=== PATIENT | female | born 2005 | race Caucasian/White ===

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

== ENCOUNTER 2025-05-01 01:03 | Emergency (ER) | payer OTHER, SELFPAY ==
[2025-05-01 01:12] VITALS: BP 132/84; PULSE 120; RESP 18; TEMP 36.8; O2SAT 98; BMI 34.0
[2025-05-01 01:17] VITALS: BP 132/84; PULSE 124; RESP 18; O2SAT 98
--- OUTSIDE RECORDS SUMMARY | 2025-05-01 01:21 | XMS_ITS | Continuity of Care Document ---
Author Organization [facility]URIC[facility] Luis F Perez ASIAN [employer]UD[employer] PROFESSOR Address [address] [place] [address] [place] [address] Assessment No assessment recorded. Plan of Treatment Reminders Order Date Submit Date Provider Last Modified By Organization Details Last Modified Time Details Appointments OB 1hr Glucose 2025 08:40A M Mildred Mota rtiz, DO Not available Not available Not available Lab urinalysi s, dipstick 2024 025 [email or web address] [place] [facility], [address] [place] [address] , [place], [address], 01/31/2025 14:20:35 aneuploid y risk and X & Y analysis, chromosom e specific circulati ng cell free (CCF) DNA, maternal serum 2024 025 AMARI [facility], [address], [facility], [place], [address], 02/06/2025 03:08:41 Referral None recorded. Procedures None recorded. Surgeries None recorded. Imaging US, obstetric , 1st trimester 2024 025 [email or web address] [place] [facility], [address] [place] [address] , [place], [address], 02/02/2025 07:34:52 Medication Orders None recorded. Patient TargetsNo targets recorded. Patient Instructions Encounter Date Encounter Id Patient Instructions Last Modified By Organization Details Last Modified Time 01/31/2025 [id number] body mass index: care instructions rhogge Not available 01/31/2025 14:20:35 learning about healthy weight rhogge Not available 01/31/2025 14:20:35 nausea and vomiting: care instructions rhogge Not available 01/31/2025 14:20:35 high-risk : care instructions rhogge Not available 01/31/2025 14:20:35 Reason for Referral None Reported. Results Created Date Observation Date Name Description Value Unit Range Abnormal Flag Note LastModifiedBy Organization Detail LastModifiedTime 01/22/2001/22/2025 PREGN TONY, INITI AL SCREE N HBsAg screen Negati ve negati ve Not Available [facility] ([facility]) [address] [facility], [place], [address], 01/23/2025 14:12:25 01/22/20 25 01/22/2025 PREGN TONY, INITI AL SCREE N HCV Ab Non Reacti ve non reacti ve Not Available [facility] ([facility]) [address] [facility], [place], [address], 01/23/2025 14:12:25 01/22/2001/22/2025 PREGN TONY, INITI AL SCREE N interpretati on: Commen t Not infec phill with HCV unles s early or acute infec tion is suspe cted (whic h may be delay ed in an immun ocomp romis ed indiv idual ), or other evide nce exist s to indic ate HCV infec tion. Not Available [facility] ([facility]) [address] [facility], [place], [address], 01/23/2025 14:12:25 01/22/2001/22/2025 PREGN TONY, INITI AL SCREE N RPR Non Reacti ve non reacti ve Not Available [facility] ([facility]) [address] [facility], [place], [address], 01/23/2025 14:12:25 01/22/20 25 01/22/2025 PREGN TONY, INITI AL SCREE N rubella antibodies, IgG 1.09 index immune >0.99 Non-i mmune <0.90 Equiv ocal 0.90 - 0.99 Immun e >0.99 Not Available [facility] ([facility]) [address] [place], [address], 01/23/2025 14:12:25 01/22/20 25 01/22/2025 PREGN TONY, INITI AL SCREE N ABO grouping O Not Available [facility] ([facility]) [address] [facility], [place], [address], 01/23/2025 14:12:25 01/22/20 25 01/22/2025 PREGN TONY, INITI AL SCREE N Rh factor Negati ve Pleas e note: Prior recor ds for this patie nt's ABO / Rh type are not avail able for addit ional verif icati on. Not Available [facility] ([facility]) [address] [facility], [place], [address], 01/23/2025 14:12:25 01/22/2001/22/2025 PREGN TONY, INITI AL SCREE N antibody screen Negati ve negati ve Not Available [facility] ([facility]) [address] [place], [address], 01/23/2025 14:12:25 01/22/20 25 01/22/2025 PREGN TONY, INITI AL SCREE N HIV Ab/P24 Ag screen Non Reacti ve non reacti ve HIV-1 /HIV- 2 antib odies and HIV-1 p24 antig en were NOT detec phill. There is no labor atory evide nce of HIV infec tion. HIV Negat tate Not Available [facility] ([facility]) [address] [place], [address], 01/23/2025 14:12:25 01/22/20 25 01/22/2025 PREGN TONY, INITI AL SCREE N WBC 8.6 x10e3 /uL 3.4-10 .8 normal Not Available [facility] ([facility]) [address] [place], [address], 01/23/2025 14:12:25 01/22/2001/22/2025 PREGN TONY, INITI AL SCREE N RBC 4.55 x10e6 /uL 3.77-5 .28 normal Not Available [facility] ([facility]) [address] [facility], [place], [address], 01/23/2025 14:12:25 01/22/2001/22/2025 PREGN TONY, INITI AL SCREE N hemoglobin 13.4 g/dL 11.1-1 5.9 normal Not Available [facility] ([facility]) [address] [facility], [place], [address], 01/23/2025 14:12:25 01/22/2001/22/2025 PREGN TONY, INITI AL SCREE N hematocrit 40.5 % 34.0-4 6.6 normal Not Available [facility] ([facility]) [address] [facility], [place], [address], 01/23/2025 14:12:25 01/22/2001/22/2025 PREGN TONY, INITI AL SCREE N MCV 89 fL 79-97 normal Not Available [facility] ([facility]) [address] [place], [address], 01/23/2025 14:12:25 01/22/2001/22/2025 PREGN TONY, INITI AL SCREE N MCH 29.5 pg 26.6-3 3.0 normal Not Available [facility] ([facility]) [address] [place], [address], 01/23/2025 14:12:25 01/22/2001/22/2025 PREGN TONY, INITI AL SCREE N MCHC 33.1 g/dL 31.5-3 5.7 normal Not Available [facility] ([facility]) [address] [place], [address], 01/23/2025 14:12:25 01/22/20 25 01/22/2025 PREGN TONY, INITI AL SCREE N RDW 12.1 % 11.7-1 5.4 Not Available [facility] ([facility]) [address] [facility], [place], [address], 01/23/2025 14:12:25 01/22/20 25 01/22/2025 PREGN TONY, INITI AL SCREE N platelets 273 x10e3 /uL 150-45 0 normal Not Available [facility] ([facility]) [address] [facility], [place], [address], 01/23/2025 14:12:25 01/22/20 25 01/22/2025 PREGN TONY, INITI AL SCREE N neutrophils 76 % not estab. normal Not Available [facility] ([facility]) [address] [facility], [place], [address], 01/23/2025 14:12:25 01/22/20 25 01/22/2025 PREGN TONY, INITI AL SCREE N lymphs 16 % not estab. normal Not Available [facility] ([facility]) [address] [facility], [place], [address], 01/23/2025 14:12:25 01/22/20 25 01/22/2025 PREGN TONY, INITI AL SCREE N monocytes 7 % not estab. normal Not Available [facility] ([facility]) [address] [facility], [place], [address], 01/23/2025 14:12:25 01/22/20 25 01/22/2025 PREGN TONY, INITI AL SCREE N eos 0 % not estab. normal Not Available [facility] ([facility]) [address] [facility], [place], [address], 01/23/2025 14:12:25 01/22/20 25 01/22/2025 PREGN TONY, INITI AL SCREE N basos 1 % not estab. 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 0 normal Not Available [facility] ([facility]) [address] [facility], [place], [address], 01/23/2025 14:12:25 01/22/20 25 01/22/2025 PREGN TONY, INITI AL SCREE N lymphs (absolute) 1.3 x10e3 /uL 0.7-3. 1 normal Not Available [facility] ([facility]) [address] [place], [address], 01/23/2025 14:12:25 01/22/20 25 01/22/2025 PREGN TONY, INITI AL SCREE N monocytes(ab solute) 0.6 x10e3 /uL 0.1-0. 9 normal Not Available [facility] ([facility]) [address] [place], [address], 01/23/2025 14:12:25 01/22/20 25 01/22/2025 PREGN TONY, INITI AL SCREE N eos (absolute) 0.0 x10e3 /uL 0.0-0. 4 normal Not Available [facility] ([facility]) [address] [place], [address], 01/23/2025 14:12:25 01/22/20 25 01/22/2025 PREGN TONY, INITI AL SCREE N baso (absolute) 0.1 x10e3 /uL 0.0-0. 2 normal Not Available [facility] ([facility]) [address] [facility], [place], [address], 01/23/2025 14:12:25 01/22/20 25 01/22/2025 PREGN TONY, INITI AL SCREE N immature granulocytes 0 % not estab. Not Available [facility] ([facility]) [address] [facility], [place], [address], 01/23/2025 14:12:25 01/22/2001/22/2025 PREGN TONY, INITI AL SCREE N immature grans (abs) 0.0 x10e3 /uL 0.0-0. 1 Not Available [facility] ([facility]) [address] [facility], [place], [address], 01/23/2025 14:12:25 01/22/2001/22/2025 PREGN TONY, INITI AL SCREE N NRBC WOOD GRINDER Not Available [facility] ([facility]) [address] [facility], [place], [address], 01/23/2025 14:12:25 01/22/2001/22/2025 PREGN TONY, INITI AL SCREE N hematology comments: WOOD GRINDER Not Available [facility] ([facility]) [address] [facility], [place], [address], 01/23/2025 14:12:25 01/22/2001/22/2025 PREGN TONY, INITI AL SCREE N specific gravity 1.023 1.005- 1.030 normal Not Available [facility] ([facility]) [address] [facility], [place], [address], 01/23/2025 14:12:25 01/22/2001/22/2025 PREGN TONY, INITI AL SCREE N pH 6.0 5.0-7. 5 normal Not Available [facility] ([facility]) [address] [facility], [place], [address], 01/23/2025 14:12:25 01/22/20 25 01/22/2025 PREGN TONY, INITI AL SCREE N urine-color Yellow yellow Not Available [facility] ([facility]) [address] [place], [address], 01/23/2025 14:12:25 01/22/20 25 01/22/2025 PREGN TONY, INITI AL SCREE N appearance Cloudy clear abnormal Not Available [facility] ([facility]) [address] [place], [address], 01/23/2025 14:12:25 01/22/20 25 01/22/2025 PREGN TONY, INITI AL SCREE N WBC esterase Negati ve negati ve Not Available [facility] ([facility]) [address] [place], [address], 01/23/2025 14:12:25 01/22/20 25 01/22/2025 PREGN TONY, INITI AL SCREE N protein Negati ve negati ve/tra ce Not Available [facility] ([facility]) [address] [place], [address], 01/23/2025 14:12:25 01/22/20 25 01/22/2025 PREGN TONY, INITI AL SCREE N glucose Negati ve negati ve Not Available [facility] ([facility]) [address] [place], [address], 01/23/2025 14:12:25 01/22/20 25 01/22/2025 PREGN TONY, INITI AL SCREE N ketones Negati ve negati ve Not Available [facility] ([facility]) [address] [place], [address], 01/23/2025 14:12:25 01/22/20 25 01/22/2025 PREGN TONY, INITI AL SCREE N occult blood Negati ve negati ve Not Available [facility] ([facility]) [address] [facility], [place], [address], 01/23/2025 14:12:25 01/22/20 25 01/22/2025 PREGN TONY, INITI AL SCREE N bilirubin Negati ve negati ve Not Available [facility] ([facility]) [address] [facility], [place], [address], 01/23/2025 14:12:25 01/22/20 25 01/22/2025 PREGN TONY, INITI AL SCREE N urobilinogen ,semi-qn 0.2 mg/dL 0.2-1. 0 normal Not Available [facility] ([facility]) [address] [facility], [place], [address], 01/23/2025 14:12:25 01/22/20 25 01/22/2025 PREGN TONY, INITI AL SCREE N nitrite, urine Negati ve negati ve Not Available [facility] ([facility]) [address] [facility], [place], [address], 01/23/2025 14:12:25 01/22/20 25 01/22/2025 PREGN TONY, INITI AL SCREE N microscopic examination Commen t Micro scopi c follo ws if indic ated. Not Available [facility] ([facility]) [address] [facility], [place], [address], 01/23/2025 14:12:25 01/22/20 25 01/22/2025 PREGN TONY, INITI AL SCREE N microscopic examination See below: Micro scopi c was indic ated and was perfo rmed. Not Available [facility] ([facility]) [address] [place], [address], 01/23/2025 14:12:25 01/22/20 25 01/22/2025 PREGN TONY, INITI AL SCREE N WBC 0-5 /hpf 0 - 5 Not Available [facility] ([facility]) [address] [place], [address], 01/23/2025 14:12:25 01/22/20 25 01/22/2025 PREGN TONY, INITI AL SCREE N RBC 0-2 /hpf 0 - 2 Not Available [facility] ([facility]) [address] [facility], [place], [address], 01/23/2025 14:12:25 01/22/20 25 01/22/2025 PREGN TONY, INITI AL SCREE N epithelial cells (non renal) >10 /hpf 0 - 10 abnormal Not Available [facility] ([facility]) [address] [facility], [place], [address], 01/23/2025 14:12:25 01/22/20 25 01/22/2025 PREGN TONY, INITI AL SCREE N epithelial cells (renal) WOOD GRINDER Not Available [facility] ([facility]) [address] [facility], [place], [address], 01/23/2025 14:12:25 01/22/20 25 01/22/2025 PREGN TONY, INITI AL SCREE N casts None seen /lpf none seen Not Available [facility] ([facility]) [address] [facility], [place], [address], 01/23/2025 14:12:25 01/22/20 25 01/22/2025 PREGN TONY, INITI AL SCREE N cast type WOOD GRINDER Not Available [facility] ([facility]) [address] [facility], [place], [address], 01/23/2025 14:12:25 01/22/20 25 01/22/2025 PREGN TONY, INITI AL SCREE N crystals WOOD GRINDER Not Available [facility] ([facility]) [address] [facility], [place], [address], 01/23/2025 14:12:25 01/22/20 25 01/22/2025 PREGN TONY, INITI AL SCREE N crystal type WOOD GRINDER Not Available [facility] ([facility]) [address] [facility], [place], [address], 01/23/2025 14:12:25 01/22/20 25 01/22/2025 PREGN TONY, INITI AL SCREE N mucus threads WOOD GRINDER Not Available [facility] ([facility]) [address] [facility], [place], [address], 01/23/2025 14:12:25 01/22/20 25 01/22/2025 PREGN TONY, INITI AL SCREE N bacteria Few none seen/f ew Not Available [facility] ([facility]) [address] [facility], [place], [address], 01/23/2025 14:12:25 01/22/20 25 01/22/2025 PREGN TONY, INITI AL SCREE N yeast WOOD GRINDER Not Available [facility] ([facility]) [address] [facility], [place], [address], 01/23/2025 14:12:25 01/22/20 25 01/22/2025 PREGN TONY, INITI AL SCREE N trichomonas WOOD GRINDER Not Available [facility] ([facility]) [address] [facility], [place], [address], 01/23/2025 14:12:25 01/22/20 25 01/22/2025 PREGN TONY, INITI AL SCREE N comment WOOD GRINDER Not Available [facility] ([facility]) [address] [place], [address], 01/23/2025 14:12:25 01/22/20 25 01/23/2025 PREGN TONY, INITI AL SCREE N chlamydia trachomatis, PEPE Negati ve negati ve Not Available [facility] ([facility]) [address] [place], [address], 01/23/2025 14:12:25 01/22/20 25 01/23/2025 PREGN TONY, INITI AL SCREE N neisseria gonorrhoeae, PEPE Negati ve negati ve Not Available [facility] ([facility]) [address] [place], [address], 01/23/2025 14:12:25 01/22/20 25 01/23/2025 PREGN TONY, INITI AL SCREE N urine culture,pren atal, w/gbs Final report Not Available [facility] ([facility]) [address] [facility], [place], [address], 01/23/2025 14:12:25 01/22/20 25 01/23/2025 PREGN TONY, INITI AL SCREE N result 1 No growth Not Available [facility] ([facility]) [address] [facility], [place], [address], 01/23/2025 14:12:25 01/22/2001/22/2025 HEMOG LOBIN A1C hemoglobin A1C 5.1 % 4.8-5. 6 normal Predi abete s: 5.7 - 6.4 Diabe crystal: >6.4 Glyce carola contr ol for adult s with diabe crystal: <7.0 Not Available [facility] ([facility]) [address] [facility], [place], [address], 01/23/2025 14:12:25 01/22/20 25 01/26/2025 COMPL IANCE DRUG RON SIS, UR summary report (summary) FINAL ===== ===== ===== ===== ===== ===== ===== ===== ===== ===== ===== ===== ===== === TOXAS SURE COMP DRUG RON SIS,U R ===== ===== ===== ===== ===== ===== ===== ===== ===== ===== ===== ===== ===== === Test Resul t Flag Units NO DRUGS DETEC PHILL. ===== ===== ===== ===== ===== ===== ===== ===== ===== ===== ===== ===== ===== === Test Resul t Flag Units Ref Range Creat inine 140 mg/dL >=20 ===== ===== ===== ===== ===== ===== ===== ===== ===== ===== ===== ===== ===== === Decla red Medic ation s: Medic ation list was not provi ded. ===== ===== ===== ===== ===== ===== ===== ===== ===== ===== ===== ===== ===== === For clini mao consu ltati on, pleas e call [phone]. ===== ===== ===== ===== ===== ===== ===== ===== ===== ===== ===== ===== ===== === Not Available [facility] ([facility]) [address] [facility], [place], [address], 01/26/2025 10:35:57 01/22/20 25 01/26/2025 COMPL IANCE DRUG RON SIS, UR pdf . Not Available [facility] ([facility]) [address] [facility], [place], [address], 01/26/2025 10:35:57 01/22/20 25 01/21/2025 pregn tony test, urine HCG positi ve Not Available [place] [facility] [address] [facility] , [place], [address], 01/21/2025 08:32:47 02/01/2002/06/2025 MATER NIT21 PLUS CORE gestation Single ton Not Available [facility] ([facility]) [address] [facility], [place], [address], 02/06/2025 03:08:41 02/01/2002/06/2025 MATER NIT21 PLUS CORE fraction 16% Not Available [facility] ([facility]) [address] [facility], [place], [address], 02/06/2025 03:08:41 02/01/2002/06/2025 MATER NIT21 PLUS CORE gestational age > or = 9W: Yes Not Available [facility] ([facility]) [address] [facility], [place], [address], 02/06/2025 03:08:41 02/01/2002/06/2025 MATER NIT21 PLUS CORE test result Negati ve Not Available [facility] ([facility]) [address] [facility], [place], [address], 02/06/2025 03:08:41 02/01/2002/06/2025 MATER NIT21 PLUS CORE laborer comments Sandoval Mcneil speci men showe d an expec phill repre senta tion of chrom osome 21, 18 and 13 mater ial. Clini mao corre latio n is doris patricia. Not Available [facility] ([facility]) [address] [facility], [place], [address], 02/06/2025 03:08:41 02/01/2002/06/2025 MATER NIT21 PLUS CORE approved by Sandoval munson MD, PhD, [facility] tor, [place] Labor atori es Not Available [facility] ([facility]) [address] [facility], [place], [address], 02/06/2025 03:08:41 02/01/20 25 02/06/2025 MATER NIT21 PLUS CORE trisomy 21 (down syndrome) Negati ve Not Available [facility] ([facility]) [address] [facility], [place], [address], 02/06/2025 03:08:41 02/01/20 25 02/06/2025 MATER NIT21 PLUS CORE trisomy 18 (burt syndrome) Negati ve Not Available [facility] ([facility]) [address] [facility], [place], [address], 02/06/2025 03:08:41 02/01/2002/06/2025 MATER NIT21 PLUS CORE trisomy 13 (patau syndrome) Negati ve Not Available [facility] ([facility]) [address] [facility], [place], [address], 02/06/2025 03:08:41 02/01/2002/06/2025 MATER NIT21 PLUS CORE sex Commen t Consi stent with Femal e Not Available [facility] ([facility]) [address] [facility], [place], [address], 02/06/2025 03:08:41 02/01/2002/06/2025 MATER NIT21 PLUS CORE negative predictive value Note The Negat tate Predi ctive Value (NPV) for triso my 21, 18, and 13 is great er than 99%. The NPV for SCA and ESS canno t be calcu lated as SCA and ESS are only repor phill when an abnor malit y is detec phill. Not Available [facility] ([facility]) [address] [facility], [place], [address], 02/06/2025 03:08:41 02/01/2002/06/2025 MATER NIT21 PLUS CORE positive predictive value N/A Not Available [facility] ([facility]) [address] [facility], [place], [address], 02/06/2025 03:08:41 02/01/2002/06/2025 MATER NIT21 PLUS CORE about the test Commen t The Mater niT(R ) 21 PLUS labor atory -deve loped test (LDT) ron zes circu latin g cell- free DNA from a mater nal blood sampl e. This test is used for scree gustavo purpo ses and not diagn ostic . Clini mao corre latio n is recom saul d. Valid ation data on twin pregn ancie s is limit ed and the abili ty of this test to detec t aneup loidy in highe r multi ple gesta tions has not yet been valid ated. Not Available [facility] ([facility]) [address] [facility], [place], [address], 02/06/2025 03:08:41 02/01/2002/06/2025 MATER NIT21 PLUS CORE test method Commen t Circu latin g cell- free DNA was purif ied from the plasm a compo nent of mater nal blood . The extra cted DNA was then conve rted into a Brandizi DNA valentín ry for aneup loidy ron sis of chrom osome s 21, 18, and 13 via next gener ation seque ncing .[1] Optio nal findi ngs based on the test order inclu de sex chrom osome aneup loidy (SCA) [2], and enhan reina seque ncing serie s (ESS) [3], which will only be repor phill on as an addit ional findi ng when an abnor malit y is detec phill. SCA testi ng inclu cuong infor matio n on X and Y repre senta tion, while ESS testi ng inclu cuong delet ions in selec phill regio ns (22q, 15q, 11q, 8q, 5p, 4p, 1p) and triso my of chrom osome s 16 and 22. Not Available [facility] ([facility]) [address] [facility], [place], [address], 02/06/2025 03:08:41 02/01/2002/06/2025 MATER NIT21 PLUS CORE performance Commen t The perfo rmanc e etelvina cteri stics of the Mater niT(R ) 21 PLUS labor atory -deve loped test (LDT) have been deter mined in a clini mao valid ation study with pregn ant women at incre ased risk for chrom osoma l aneup loidy .[1-4 ] Not Available [facility] ([facility]) [address] [facility], [place], [address], 02/06/2025 03:08:41 02/01/20 25 02/06/2025 MATER NIT21 PLUS CORE performance characterist ics Note ----- ----- ----- ----- ----- ----- ----- ----- ----- ----- ----- ---- ! Sex ! Accur acy: 99.4% ! !---- ----- ----- ----- ----- ----- ----- ----- ----- ----- ----- ---! ! Andresio n (savanna gomez syndr ome) ! Est. Sens# ! Est. Spec ! !---- ----- ----- ----- ----- ----- ----- ----- ----- ----- ----- ---! ! Rafaela collins 21 ([place] Syndr ome) ! 99.1% ! 99.9% ! !---- ----- ----- ----- ----- ----- ----- ----- ----- ----- ----- ---! ! Rafaela collins 18 (Lyle quinn Syndr ome) ! >99.9 % ! 99.6% ! !---- ----- ----- ----- ----- ----- ----- ----- ----- ----- ----- ---! ! Triso my 13 (Pata u Syndr ome) ! 91.7% ! 99.7% ! !---- ----- ----- ----- ----- ----- ----- ----- ----- ----- ----- ---! ! Sex Chrom osome Aneup loidi es## ! 96.2% ! 99.7% ! !---- ----- ----- ----- ----- ----- ----- ----- ----- ----- ----- ---! * As repor phill in [employer] datab ase nstd3 7 [http [email or web address] [email or web address] [email or web address] [email or web address]/ dbvar /stud ies/n [email or web address] / ] # Estim ated Sensi tivit y. Sensi tivit y estim ated acros s the obser brian size distr ibuti on of each syndr ome [per [employer] datab ase nstd3 7] and acros s the range of fract ions obser brian in routi ne clini mao NIPT. Actua l sensi tivit y can also be influ enced by other facto rs such as the size of the event , total seque nce count s, ampli ficat ion bias, or seque nce bias. ## Singl eton gesta tion only. Not Available [facility] ([facility]) [address], [place], [address], 02/06/2025 03:08:41 02/01/2002/06/2025 MATER NIT21 PLUS CORE limitations of the test Commen t While the resul ts of these tests are highl y relia ble, disco rdant resul ts, inclu ding inacc urate sex predi ction , may occur due to place ntal, mater nal, or mosai cism or neopl asm; vanis melquiades twin; prior mater nal organ trans plant ; or other cause s. These tests are scree gustavo tests and not diagn ostic ; they do not repla ce the accur acy and preci debora of prena efren diagn osis with [facility] or amnio cente sis. A patie nt with a posit tate test resul t shoul d be refer red for víctor ic couns eling and offer ed invas tate prena efren diagn osis for confi rmati on of test resul ts.[5 ] The resul ts of this testi ng, inclu ding the benef its and limit ation s, shoul d be discu ssed with a quali fied healt hcare provi jennifer. Pregn tony manag ement decis ions, inclu ding termi natio n of the pregn tony, shoul d not be based on the resul ts of these tests alone . The healt hcare provi jennifer is respo nsibl e for the use of this infor matio n in the manag ement of their patie nt. Sex chrom osoma l aneup loidi es are not repor table for known multi ple gesta tions . A negat tate resul t does not ensur e an unaff ected pregn tony nor does it exclu de the possi bilit y of other chrom osoma l abnor malit ies or defec ts which are not a part of these tests . An uninf ormat tate resul t may be repor phill, the cause s of which may inclu de, but are not limit ed to, insuf ficie nt seque ncing cover age, noise or artif acts in the regio n, ampli ficat ion or seque ncing bias, or insuf ficie nt fract ion. These tests are not inten ded to ident yvette pregn ancie s at risk for neura l tube defec ts or ventr al wall defec ts. Testi ng for whole chrom osome abnor malit ies (incl uding sex chrom osome s) and for subch romos omal abnor malit ies could lead to the poten tial disco very of both and mater nal genom ic abnor malit ies that could have major , minor , or no, clini mao signi fican ce. Evalu ating the signi fican ce of a posit tate or a non-r eport able resul t may invol ve both invas tate testi ng and addit ional studi es on the mothe r. Such inves tigat ions may lead to a diagn osis of mater nal chrom osoma l or subch romos omal abnor malit ies, which on occas ion may be assoc iated with benig n or malig nant mater nal neopl asms. These tests may not accur ately ident yvette tripl oidy, rachel reina rearr angem ents, or the preci se locat ion of subch romos omal dupli catio ns or delet ions; these may be detec phill by prena efren diagn osis with CVS or amnio cente sis. The abili ty to repor t resul ts may be impac phill by mater nal BMI, mater nal weigh t, mater nal syste carola lupus eryth emato daja (SLE) and/o r by certa in pharm aceut ical agent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 Policy Number Policy Norton Covered Member ID Norton Member ID Guarantor Name 01/31/2025 1 [facility] (MEDICAID HMO) Ileana Bill [id number] Marina Garcia Notes Date Note Type Note Provider Name and Address Organization Details Recorded Time 01/31/2025 text/html ROS as noted in the HPI 10 wk OB visit Jeannie Lind MD [address], [place], [address], [place] - [facility] 02/02/2025 07:34:56 OBGyn Episode Ob Episode Information Episode Created Date Number of Fetuses Patient Bloodtype Patient rh Status Prepregnancy Weight lbs Domestic Partner Domestic Partner Phone Father Name Plate Stacker Status 01/22/20 25 1 O Negative 190 Jesus , 25 [employer] [place] OPEN Fetus Data First Name Last Name Admitted to NICU Weight (g) Sex Living Outcome Pediatric Complications Fetus ID Race Codes Race Delivery Type [id number] Problems Problem Notes Lives- [place]- Babz bistrobreast and bottle/[employer] [id number]: Primary c/s at for kyphoscoliosis and vertriculomegaly, 39wks, LST incision-->daughter is well- has not required surgery yet but working with getting back brace. Ultrasound:01/31/25 Dating Scan-Viable IUP 10+6, c/w LMP. Keep EDC 08/18/2610: Incomplete, normal, vertex, posterior placenta, female, repeat at 24 weeks, CL > 5cm, no funneling/SMO04/29/25 :[ x] fu for outflow tracts-Completed. vtx, /lsPatient stating now she truly had no idea about LMP, Gave them a guess -With this amended history I would use ultrasound dating (01/31/25--->10+6-->08/23/25) as formal SANTI and chart is updated today/LS Problem Name Start Date End Date Resolution Snomed Code Not e Supervision of high risk with history of previous section done 01/21/2025 [id number] Pr C S LST for indications- desires schedled repeat ;[ ]turkey cleaner surg referral for repeat c/s screening 01/21/2025 311389926 Mat21- 01/21/25 Negative; AFP- 02/28/2025 Negative; CF- negative 2020 Active immunization 01/21/2025 42097433 Covid- declined 01/21/25; [ ]Tdap- @30wks; [x ] Flu-Given 04-29-2025 Overweight in adulthood with body mass index of 25 or more but less than 30 01/21/2025 055067489 BMI: 2 8.1starting wgt: [id number]: 5.1 Santi Calculation Initial Santi Date Initial Exam Date Initial Exam Provider Initial Ultrasound Date Last Menstrual Period Date Ultra Sound Weeks Gestation 01/21/2025 01/31/2025 10 Eighteen To Twenty Week Santi Update Ultra Sound Date Fundal Height At Umbil Quickening Date Ultra Sound Latest Weeks Gestation Final Santi Confirmed By Final Santi Confirmed Date Final Santi Date Ultra Sound Latest Days Gestation 0 lshower 04/29/2025 08/24/19 26 0 Pre-charles Flowsheet Flowsheet Date 01/21/2025 Parker Score Blood Edema Fundus Height Fundus Units Glucose Ketones Leukocytes Nitrite Labor Signs Protein Cervic Dilation Cervic Effacement Cervic Station neg none none negative none Negative none neg Type Weight in lbs Pre/Post Dialysis Refused With clothes 190.897240346206 BP Diastolic BP Location Tested BP Systolic BP Type 88 L arm 140 sitting Fetus Heart Rate Present Fetus Movement A No Comments Ileana is here today w/her d aughter, mother, and FOB. She is not completely certain of LMP or +upt. She denies vb or pain. This was an unplanned w/different FOB. First delivery was primary c/s due to kyphoscoliosis. Desires NIPT. Consents to labs today. Desires repeat c/s. FOB doesn't know much about his family history. States she doesn't take any meds for tachycardia, no recent problems, denies palpitations. Takes no meds for anxiety/depression, discussed there are safe meds during . Advised RTC for dating u/s to confirm SANTI.AD Flowsheet Date 01/31/2025 Parker Score Blood Edema Fundus Height Fundus Units Glucose Ketones Leukocytes Nitrite Labor Signs Protein Cervic Dilation Cervic Effacement Cervic Station neg 11 wks none negative none Negative none neg Type Weight in lbs Pre/Post Dialysis Refused 192.555644241586 BP Diastolic BP Location Tested BP Systolic BP Type 80 118 sitting Fetus Heart Rate Present A Present Fetus Movement A No Comments no vb, no lof, no complaints voiced today.//BT//Here or dating scan. US showed 10+6, c/w LMP. Keep EDC . C/O nasuea-Discussed OTC options. Desires [id number] today. Scheduled for OBPE 02/28/25. RH Flowsheet Date 02/28/2025 Parker Score Blood Edema Fundus Height Fundus Units Glucose Ketones Leukocytes Nitrite Labor Signs Protein Cervic Dilation Cervic Effacement Cervic Station neg none 15 wks none negative none Negative none neg Type Weight in lbs Pre/Post Dialysis Refused Weight 204.710971573396 BP Diastolic BP Location Tested BP Systolic BP Type 86 126 sitting Fetus Heart Rate Present A Present Fetus Movement A No Comments no vb, no lof, wants to disc uss due date.//BT/OBPE with Pap. Desires AFP today. She thought her US had been 4/8 but it was 4/4 which was consistent with her LMP. She is a little unsure about the but sure she had MC in October. She felt more confident with her dates once she found out her US was 4/4 instead of 4/8. RTC 4 wks with anatomy scan. Flowsheet Date 04/01/2025 Parker Score Blood Edema Fundus Height Fundus Units Glucose Ketones Leukocytes Nitrite Labor Signs Protein Cervic Dilation Cervic Effacement Cervic Station neg none 20 wks none negative Negative none neg Type Weight in lbs Pre/Post Dialysis Refused With clothes 218.703027033450 BP Diastolic BP Location Tested BP Systolic BP Type 80 L arm 122 sitting Fetus Heart Rate Present A US Present Fetus Movement A Yes Comments Pt states no VB, no LOF, no CTX. pt states AFM. /EV Doing well. No complaints. Taking PNV and ASA. US reviewed - f/u 24 weeks for follow up. Taking PNV and ASA. F/U 4 weeks with repeat US to complete anatomy./SMO Flowsheet Date 04/29/2025 Parker Score Blood Edema Fundus Height Fundus Units Glucose Ketones Leukocytes Nitrite Labor Signs Protein Cervic Dilation Cervic Effacement Cervic Station neg none 24 cm none negative none Negative none neg Type Weight in lbs Pre/Post Dialysis Refused With clothes 240.886558722438 BP Diastolic BP Location Tested BP Systolic BP Type 76 L arm 118 sitting Fetus Heart Rate Present A Present Fetus Movement A Yes Comments Pt states no VB, no LOF, no CTX. Pt states some issues with her Tachycardia recently. AFM /EV FU US comleted and reassuring outflow views States history even since middle school of intermittent tachycardia. As teen, had been on propranolol but none and at least 3 to 4 years. saw cardiology at during her 2021 but did not have ongoing outpatient follow-up. had Holter but no tachycardia was captured during that time. Does not think she has had an echo.. She is SAHM and states any degree of housework or childcare accelerates her pulse and she is usually feeling a little lightheaded when completing task. She will sometimes have tachycardia even at rest. She has a pulse ox and states it frequently is in the 150s to 160s. She has noted if she Valsalva's it may improve on its own. No chest pain or shortness of breath or edema.This is happening daily now. But not during visit. Pulse 90, O2 sat 100.Will refer her onto heart [facility] for up-to-date testing and consideration for possible beta-aramis. . Agrees to flu shot today. Discussed 28-week testing and RhoGAM next visit.We were discussing scheduling at 39 weeks and Patient and mother bring up that she thinks she told them wrong regarding LMP and admits she truly had no idea when LMP was, gave them a guess because she thought she had to. She was then told that her ultrasound was consistent with her LMP . I would have advised assigning SANTI based on ultrasound alone in this setting and will amend formal SANTI to August 23 going forward- aware 39+ 0 will thus fall on a Monday and likely RCS would be ~39+2/Mo 08/18 unless earlier labor or indicaton./ls Menstrual History Last Menstrual Date Menses Monthly On Bcp Conception Prior Menses Frequency Hcg Plus Date Menarche Onset Age true false 9 Genetic Screening And Infection History Question Response Note Patient's Age Will Be 35 Yea rs Or Older At Estimated Date of Delivery false Thalassemia (Sudanese, German, Mediterranean, Or Background): MCV < 80 false Neural Tube Defect (Meningom yelocele, Spina Bifida, Or Anencephaly) false Congenital Heart Defect false Down Syndrome false Surinder-Sachs (eg, Mandaen, Cajun, [place] Zealander-[place]) f alse Gigi Disease false Sickle Cell Disease Or Trait () false Hemophilia Or Other Blood Disorders false Muscular Dystrophy false Cystic Fibrosis false Christofer's Chorea false Mental Retardation/Autism false If Yes, Was Person Tested For Fragile X? false Other Inherited Genetic Or Chromosomal Disorder false Maternal Metabolic Disorder (eg, Type 1 Diabetes, PKU) false Patient Or Baby's Father Had A Child With Defects Not Listed Above false Recurrent Loss, Or A Stillbirth false Medications (including Suppl ements, Vitamins, Herbs, OTC Drugs), Illicit/Recreational Drugs, Alcohol true PNV If Yes, Agent(s) And Strength/Dosage false Any Other Genetic History true daught er has kyphoscoliosis Live With Someone With TB Or Exposed To TB false Patient Or Partner Has History Of Genital Herpes false Pt denies Rash Or Viral Illness Since Last Menstrual Period false History Of STD, Gonorrhea, C hlamydia, HPV, Syphilis false Pt denies Other Infection History false History of HIV false History of Hepatitis false Prior GBS-infected child false Recent Travel Outside of Country false Plans and Education First Trimester Discussed Date Discussion Item Discussion Note Discuss ed By 01/21/2025 Desire for unplanned 01/21/2025 Alcohol 01/21/2025 Illicit/recreational drugs a 01/21/2025 Nutrition 01/21/2025 Weight gain counseling 15-25# ad01/21/2025 Intimate Partner Violence ad 01/21/2025 Unstable Housing 01/21/2025 Use of any medicatio ns (including supplements, vitamins, herbs, or OTC drugs) discussed 01/21/2025 Avoidance of saunas or hot tubs 01/21/2025 Indications for ultrasonography 01/21/2025 Comminucation Barriers ad01/21/2025 Anticipated course o f care 01/21/2025 Toxoplasmosis precau tions (cats/raw meat) 01/21/2025 Sexual activity 01/21/2025 Exercise 01/21/2025 Tobacco/smoking cess ation counseling (ask, advise, assess, assist, and arrange) non smoker, no tobacco 01/21/2025 Barriers to Care 01/21/2025 Environmental/work hazards a 01/21/2025 Depression/Anxiety ( should be performed at least once during period) chronic but no meds 01/21/2025 WIC/Hands Referral already has 01/21/2025 Nutrition counseling ; special diet; dietary precautions (mercury, listeriosis) 01/21/2025 Dental Care / Refer to Dentist none 01/21/2025 Seat belt use 01/21/2025 Childbirth classes/h ospital facilities 01/21/2025 01/21/2025 Screening for aneuploidy peter ke24 Second Trimester Discussed Date Discussion Item Discussion Note Discuss ed By Third Trimester Discussed Date Discussion Item Discussion Note Discuss ed By Delivery Information Delivery Date Delivery Type Labor Anesthesia Weeks Gestation Incision Type Labor Labor Length Hrs Delivered By Post Complications Tubal Sterilization Discharge Date Comments Discharge Information Feeding Method Contraceptive Method Maternal HG B and HCT Levels
--- OUTSIDE RECORDS SUMMARY | 2025-05-01 01:21 | XMS_ITS | Clinical Summary ---
Author Organization [facility] Address [address] [place] [address] Care Team Providers Care Tripper Name Role Phone Pola Garcia MD Primary Care Provider [phone] Belkys Pablo RN Unavailable Unavailable Allergies Active Allergy Reactions Criticality Noted Date Comments Fish Allergy Unknown - Patient st ates they do not know rxn details Low 06/23/2022 Molds & Smuts Other - please docum ent in the comment field Low 06/23/2022 Medications norelgestromin- ethinyl estradiol (Xulane) 150-35 MCG/24HR Apply 1 patch each week for 3 weeks, then remove for 1 week. 3 patch 12 2 Active Additional Information Patient not taking.Reported on 12/23/2021 cholecalciferol (Vitamin D-3) 50 MCG (2000 UT) capsule Take 2,000 Units by mouth. 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 Spine not seen clearly d/t movement Normal echo on 07/07 Neonatology consult scheduled for 08/10 Will reschedule pediatric ortho appt U/S today-->EFW 2245gms 51%, AC 48%, cephalic, anterior placenta, PANCHO 18.2cm, BPP 8/8, female, S/D 17% Will start NST's in [place] in 1 week P C/S scheduled for 39 0/7 weeks on 09/15 Urinary tract infection 10/20 Assessment & Plan (08/06/2021 12:26 PM EDT): S/P treatment. No complaints today Anemia 11/05/2021 Assessment & Plan (08/06/2021 12:27 PM EDT): H&H 13.5/40.1 on 07/27 Continues oral Iron q other day Depression 11/05/2021 Assessment & Plan (08/06/2021 12:28 PM EDT): Diagnosed at age 12 or 13 Has tried several anti-depressants in the past. States Wellbutrin was most effective. Denies need for meds at this time H/o suicide attempt in 2018, denies SI at this time 33 weeks gestation of 11/05/2021 Assessment & Plan (08/06/2021 12:32 PM EDT): care by [facility] in [place] O-/RI/SyphNR/HepB-/HepC-/HIVNR/GC/CT- +THC in [place]. UDS ordered S/P Rhogam on 07/13/21 Glucola 96 Plans to breastfeed Discussed LARCs Immunizations Immunization Administration Dates Next Due Rho (D) Immune Globulin 09/15/2021 Family History Medical History Relation Name Comments Arrhythmia Other Congenital heart disease Other Cardiomyopathy Neg Hx SIDS Neg Hx Relation Name Status Comments Other Social History Tobacco Use Types Packs/Day Years Used Date Smoking Tobacco: Former Smokeless Tobacco: Never Tobacco Cessation:Counseling Given: Not Answered Comments:Previously vaped Alcohol Use Standard Drinks/Week Comments Never 0 (1 standard drink = 0.6 oz pur e alcohol) PHQ-2 Answer Date Recorded PHQ-2 Score 3 08/07/2021 [place] Depression Scale Answer Date Recorded [place] Depression Scale Total 2 11/05/2021 The thought of harming myself has occurred to me . Never 11/05/2021 Comments Unknown Sex and Gender Information Value Date Recorded Sex Assigned at Female 03/17/2021 11:30 AM EDT Legal Sex Female 6:25 PM EDT Gender Identity Female 03/17/2021 11:30 AM EDT Sexual Orientation Bisexual 04/26/2021 3: 19 PM EST Last Filed Vital Signs Vital Sign Reading Time Taken Comments Blood Pressure 115/75 06/23/2022 4:01 PM EST Pulse 62 06/23/2022 4:01 PM EST Temperature 37.2 C (99 F) 09/27/2021 4:32 PM EDT Respiratory Rate 18 09/18/2021 6:30 PM EDT Oxygen Saturation 100% 06/23/2022 4:01 PM EST Inhaled Oxygen Concentration - - Weight 82.8 kg (182 lb 8.7 oz) 06/23/2022 4:01 P M EST Height 175.3 cm (5' 9 ) 06/23/2022 4:01 PM EST Body Mass Index 26.96 06/23/2022 4:01 PM EST Plan of Treatment Health Maintenance Due Date Last Done Comments [facility]-Chlamydia and Gonorrhea Screening 2004 [facility]-HIV Screening 2004 [facility]-Hepatitis C Screening 2004 [facility]-Infant/Child/Adol SDOH Screenings 2004 [facility]-Obesity Intervention 2010 [facility]- SDOH Screenings 2022 [facility]-Adult SDOH Screenings 2022 [facility]-Depression Screening 11/05/2022 11/05/2021 [id number] Vaccine ( season) 2025 [facility]-Influenza Vaccine (#1) 2025 03/19/2018 [facility]-DTaP,Tdap,and Td Vaccines (5 - Td or Tdap) 07/22/2031 07/21/2021, 12/16/2015, 2004, Additional history exists [facility]-Zoster Vaccines (1 of 2) 2054 12/16/2015, 05/09/2005 [facility]-Hepatitis B Vaccines Completed 005, 2004, 2004 [facility]-HIB Vaccines Completed 05/09/2005, , 2004 [facility]-IPV Vaccines Completed 05/12/2008, , 2004, Additional history exists [facility]-Varicella Vaccines Completed 12/16/2015, 2004 HPV Vaccines Completed 09/18/2018, 03/19/2018 [facility]-Hepatitis A Vaccines Completed 09/18/2018, 02/20 [facility]-Pneumococcal Vaccine: Pediatrics (0 to 5 Years) and At-Risk Patients (6 to 49 Years) Aged Out No longer eligible based on patient's age to complete this topic [facility]-Rotavirus Vaccines Aged Out No lo nger eligible based on patient's age to complete this topic Advance Directives * Full Code (Latest Code Status on File) Date Activated Date Inactivated Comments 09/15/2021 8:09 AM 09/18/2021 3:36 PM Question Answer Comments Patient has decision-making capacity? Yes Care Teams Tripper Relationship Specialty Start Date End Date Pola Garcia MD [facility] [address] [place] [phone] PCP - General 10/02/20 Belkys Pablo, RN [facility] None Registered Nurse Cardiology 11/30/21
--- OUTSIDE RECORDS SUMMARY | 2025-05-01 01:21 | XMS_ITS | Continuity of Care Document ---
Author Organization [facility]URIC[facility] ElaineT[facility] Care CorporationLuis F CARBONATION TESTER Address [address] [place] [address] [place] [address] Assessment No assessment recorded. Plan of Treatment Reminders Order Date Submit Date Provider Last Modified By Organization Details Last Modified Time Details Appointments OB 1hr Glucose 2025 08:40A M Mildred raman, DO Not available Not available Not available Lab urinalysi s, dipstick 2024 A[facility]e [facility], [address] [place] [address] , [place], [address], 04/01/2025 16:25:28 Referral None recorded. Procedures None recorded. Surgeries None recorded. Imaging US, obstetric , 2nd trimester 2024 025 nikolay [place] [facility], [address] [place] [address] , [place], [address], 04/01/2025 16:25:28 US, obstetric , transvagi nal 2024 025 nikolay [facility], [address] [place] [address] , [place], [address], 04/01/2025 16:25:28 Medication Orders None recorded. Patient TargetsNo targets recorded. Patient Instructions Encounter Date Encounter Id Patient Instructions Last Modified By Organization Details Last Modified Time 04/01/2025 [id number] high-risk : care instructions nikolay Not available 04/01/2025 16:25:28 body mass index: care instructions nikolay Not available 04/01/2025 16:25:28 learning about healthy weight nikolay Not available 04/01/2025 16:25:28 Reason for Referral None Reported. Results Created Date Observation Date Name Description Value Unit Range Abnormal Flag Note LastModifiedBy Organization Detail LastModifiedTime 01/22/2001/22/2025 PREGN TONY, INITI AL SCREE N HBsAg screen Negati ve negati ve Not Available [facility] ([facility]) [address] [facility], [place], [address], 01/23/2025 14:12:25 01/22/2001/22/2025 PREGN TONY, INITI AL SCREE N HCV Ab Non Reacti ve non reacti ve Not Available [facility] ([facility]) [address] [facility], [place], [address], 01/23/2025 14:12:25 01/22/20 25 01/22/2025 PREGN TONY, INITI AL SCREE N interpretati on: Commen t Not infec phill with HCV unles s early or acute infec tion is suspe cted (whic h may be delay ed in an immun ocomp romis ed indiv idual ), or other evide nce exist s to indic ate HCV infec tion. Not Available [facility] ([facility]) [address] [facility], [place], [address], 01/23/2025 14:12:25 01/22/2001/22/2025 PREGN TONY, INITI AL SCREE N RPR Non Reacti ve non reacti ve Not Available [facility] ([facility]) [address] [place], [address], 01/23/2025 14:12:25 01/22/2001/22/2025 PREGN TONY, INITI AL SCREE N rubella antibodies, IgG 1.09 index immune >0.99 Non-i mmune <0.90 Equiv ocal 0.90 - 0.99 Immun e >0.99 Not Available [facility] ([facility]) [address] [facility], [place], [address], 01/23/2025 14:12:25 01/22/2001/22/2025 PREGN TONY, INITI AL SCREE N ABO grouping O Not Available [facility] ([facility]) [address] [facility], [place], [address], 01/23/2025 14:12:25 01/22/2001/22/2025 PREGN TONY, INITI AL SCREE N Rh factor Negati ve Pleas e note: Prior recor ds for this patie nt's ABO / Rh type are not avail able for addit ional verif icati on. Not Available [facility] ([facility]) [address] [facility], [place], [address], 01/23/2025 14:12:25 01/22/2001/22/2025 PREGN TONY, INITI AL SCREE N antibody screen Negati ve negati ve Not Available [facility] ([facility]) [address] [facility], [place], [address], 01/23/2025 14:12:25 01/22/2001/22/2025 PREGN TONY, INITI AL SCREE N HIV Ab/P24 Ag screen Non Reacti ve non reacti ve HIV-1 /HIV- 2 antib odies and HIV-1 p24 antig en were NOT detec phill. There is no labor atory evide nce of HIV infec tion. HIV Negat eddie Not Available [facility] ([facility]) [address] [facility], [place], [address], 01/23/2025 14:12:25 01/22/2001/22/2025 PREGN TONY, INITI AL SCREE N WBC 8.6 x10e3 /uL 3.4-10 .8 normal Not Available [facility] ([facility]) [address] [place], [address], 01/23/2025 14:12:25 01/22/2001/22/2025 PREGN TONY, INITI AL SCREE N RBC 4.55 x10e6 /uL 3.77-5 .28 normal Not Available [facility] ([facility]) [address] [place], [address], 01/23/2025 14:12:25 01/22/2001/22/2025 PREGN TONY, INITI AL SCREE N hemoglobin 13.4 g/dL 11.1-1 5.9 normal Not Available [facility] ([facility]) [address] [place], [address], 01/23/2025 14:12:25 01/22/2001/22/2025 PREGN TONY, INITI AL SCREE N hematocrit 40.5 % 34.0-4 6.6 normal Not Available [facility] ([facility]) [address] [place], [address], 01/23/2025 14:12:25 01/22/2001/22/2025 PREGN TONY, INITI AL SCREE N MCV 89 fL 79-97 normal Not Available [facility] ([facility]) [address] [place], [address], 01/23/2025 14:12:25 01/22/2001/22/2025 PREGN TONY, INITI AL SCREE N MCH 29.5 pg 26.6-3 3.0 normal Not Available [facility] ([facility]) [address] [place], [address], 01/23/2025 14:12:25 01/22/2001/22/2025 PREGN TONY, INITI AL SCREE N MCHC 33.1 g/dL 31.5-3 5.7 normal Not Available [facility] ([facility]) [address] [place], [address], 01/23/2025 14:12:25 01/22/2001/22/2025 PREGN TONY, INITI AL SCREE N RDW 12.1 % 11.7-1 5.4 Not Available [facility] ([facility]) [address] [facility], [place], [address], 01/23/2025 14:12:25 01/22/2001/22/2025 PREGN TONY, INITI AL SCREE N platelets 273 x10e3 /uL 150-45 0 normal Not Available [facility] ([facility]) [address] [facility], [place], [address], 01/23/2025 14:12:25 01/22/2001/22/2025 PREGN TONY, INITI AL SCREE N neutrophils 76 % not estab. normal Not Available [facility] ([facility]) [address] [facility], [place], [address], 01/23/2025 14:12:25 01/22/2001/22/2025 PREGN TONY, INITI AL SCREE N lymphs 16 % not estab. normal Not Available [facility] ([facility]) [address] [facility], [place], [address], 01/23/2025 14:12:25 01/22/2001/22/2025 PREGN TONY, INITI AL SCREE N monocytes 7 % not estab. normal Not Available [facility] ([facility]) [address] [facility], [place], [address], 01/23/2025 14:12:25 01/22/2001/22/2025 PREGN TONY, INITI AL SCREE N eos 0 % not estab. normal Not Available [facility] ([facility]) [address] [facility], [place], [address], 01/23/2025 14:12:25 01/22/2001/22/2025 PREGN TONY, INITI AL SCREE N basos 1 % not estab. normal Not Available [facility] ([facility]) [address] [facility], [place], [address], 01/23/2025 14:12:25 01/22/20 25 01/22/2025 PREGN TONY, INITI AL SCREE N immature cells FLOORWALKER Not Available [facility] ([facility]) [address] [place], [address], 01/23/2025 14:12:25 01/22/20 25 01/22/2025 PREGN TONY, INITI AL SCREE N neutrophils (absolute) 6.5 x10e3 /uL 1.4-7. 0 normal Not Available [facility] ([facility]) [address] [place], [address], 01/23/2025 14:12:25 01/22/20 25 01/22/2025 PREGN TONY, INITI AL SCREE N lymphs (absolute) 1.3 x10e3 /uL 0.7-3. 1 normal Not Available [facility] ([facility]) [address] [place], [address], 01/23/2025 14:12:25 01/22/20 25 01/22/2025 PREGN TONY, INITI AL SCREE N monocytes(ab solute) 0.6 x10e3 /uL 0.1-0. 9 normal Not Available [facility] ([facility]) [address] [place], [address], 01/23/2025 14:12:25 01/22/20 25 01/22/2025 PREGN TONY, INITI AL SCREE N eos (absolute) 0.0 x10e3 /uL 0.0-0. 4 normal Not Available [facility] ([facility]) [address] [place], [address], 01/23/2025 14:12:25 01/22/20 25 01/22/2025 PREGN TONY, INITI AL SCREE N baso (absolute) 0.1 x10e3 /uL 0.0-0. 2 normal Not Available [facility] ([facility]) [address] [place], [address], 01/23/2025 14:12:25 01/22/20 25 01/22/2025 PREGN TONY, INITI AL SCREE N immature granulocytes 0 % not estab. Not Available [facility] ([facility]) [address] [facility], [place], [address], 01/23/2025 14:12:25 01/22/2001/22/2025 PREGN TONY, INITI AL SCREE N immature grans (abs) 0.0 x10e3 /uL 0.0-0. 1 Not Available [facility] ([facility]) [address] [facility], [place], [address], 01/23/2025 14:12:25 01/22/20 25 01/22/2025 PREGN TONY, INITI AL SCREE N NRBC FLOORWALKER Not Available [facility] ([facility]) [address] [facility], [place], [address], 01/23/2025 14:12:25 01/22/20 25 01/22/2025 PREGN TONY, INITI AL SCREE N hematology comments: FLOORWALKER Not Available [facility] ([facility]) [address] [facility], [place], [address], 01/23/2025 14:12:25 01/22/20 25 01/22/2025 PREGN TONY, INITI AL SCREE N specific gravity 1.023 1.005- 1.030 normal Not Available [facility] ([facility]) [address] [facility], [place], [address], 01/23/2025 14:12:25 01/22/20 25 01/22/2025 PREGN TONY, INITI AL SCREE N pH 6.0 5.0-7. 5 normal Not Available [facility] ([facility]) [address] [place], [address], 01/23/2025 14:12:25 01/22/20 25 01/22/2025 PREGN TONY, INITI AL SCREE N urine-color Yellow yellow Not Available [facility] ([facility]) [address] [place], [address], 01/23/2025 14:12:25 01/22/20 25 01/22/2025 PREGN TONY, INITI AL SCREE N appearance Cloudy clear abnormal Not Available [facility] ([facility]) [address] [place], [address], 01/23/2025 14:12:25 01/22/20 25 01/22/2025 PREGN TONY, INITI AL SCREE N WBC esterase Negati ve negati ve Not Available [facility] ([facility]) [address] [place], [address], 01/23/2025 14:12:25 01/22/20 25 01/22/2025 PREGN TONY, INITI AL SCREE N protein Negati ve negati ve/tra ce Not Available [facility] ([facility]) [address] [place], [address], 01/23/2025 14:12:25 01/22/20 25 01/22/2025 PREGN TONY, INITI AL SCREE N glucose Negati ve negati ve Not Available [facility] ([facility]) [address] [place], [address], 01/23/2025 14:12:25 01/22/2001/22/2025 PREGN TONY, INITI AL SCREE N ketones Negati ve negati ve Not Available [facility] ([facility]) [address] [place], [address], 01/23/2025 14:12:25 01/22/20 25 01/22/2025 PREGN TONY, INITI AL SCREE N occult blood Negati ve negati ve Not Available [facility] ([facility]) [address] [place], [address], 01/23/2025 14:12:25 01/22/20 25 01/22/2025 PREGN TONY, INITI AL SCREE N bilirubin Negati ve negati ve Not Available [facility] ([facility]) [address] [place], [address], 01/23/2025 14:12:25 01/22/20 25 01/22/2025 PREGN TONY, INITI AL SCREE N urobilinogen ,semi-qn 0.2 mg/dL 0.2-1. 0 normal Not Available [facility] ([facility]) [address] [place], [address], 01/23/2025 14:12:25 01/22/20 25 01/22/2025 PREGN TONY, INITI AL SCREE N nitrite, urine Negati ve negati ve Not Available [facility] ([facility]) [address] [facility], [place], [address], 01/23/2025 14:12:25 01/22/20 25 01/22/2025 PREGN TONY, INITI AL SCREE N microscopic examination Commen t Micro scopi c follo ws if indic ated. Not Available [facility] ([facility]) [address] [facility], [place], [address], 01/23/2025 14:12:25 01/22/20 25 01/22/2025 PREGN TONY, INITI AL SCREE N microscopic examination See below: Micro scopi c was indic ated and was perfo rmed. Not Available [facility] ([facility]) [address] [facility], [place], [address], 01/23/2025 14:12:25 01/22/20 25 01/22/2025 PREGN TONY, INITI AL SCREE N WBC 0-5 /hpf 0 - 5 Not Available [facility] ([facility]) [address] [place], [address], 01/23/2025 14:12:25 01/22/20 25 01/22/2025 PREGN TONY, INITI AL SCREE N RBC 0-2 /hpf 0 - 2 Not Available [facility] ([facility]) [address] [facility], [place], [address], 01/23/2025 14:12:25 01/22/20 25 01/22/2025 PREGN TONY, INITI AL SCREE N epithelial cells (non renal) >10 /hpf 0 - 10 abnormal Not Available [facility] ([facility]) [address] [facility], [place], [address], 01/23/2025 14:12:25 01/22/20 25 01/22/2025 PREGN TONY, INITI AL SCREE N epithelial cells (renal) FLOORWALKER Not Available [facility] ([facility]) [address] [facility], [place], [address], 01/23/2025 14:12:25 01/22/20 25 01/22/2025 PREGN TONY, INITI AL SCREE N casts None seen /lpf none seen Not Available [facility] ([facility]) [address] [facility], [place], [address], 01/23/2025 14:12:25 01/22/20 25 01/22/2025 PREGN TONY, INITI AL SCREE N cast type FLOORWALKER Not Available [facility] ([facility]) [address] [facility], [place], [address], 01/23/2025 14:12:25 01/22/20 25 01/22/2025 PREGN TONY, INITI AL SCREE N crystals FLOORWALKER Not Available [facility] ([facility]) [address] [place], [address], 01/23/2025 14:12:25 01/22/20 25 01/22/2025 PREGN TONY, INITI AL SCREE N crystal type FLOORWALKER Not Available [facility] ([facility]) [address] [facility], [place], [address], 01/23/2025 14:12:25 01/22/20 25 01/22/2025 PREGN TONY, INITI AL SCREE N mucus threads FLOORWALKER Not Available [facility] ([facility]) [address] [place], [address], 01/23/2025 14:12:25 01/22/20 25 01/22/2025 PREGN TONY, INITI AL SCREE N bacteria Few none seen/f ew Not Available [facility] ([facility]) [address] [facility], [place], [address], 01/23/2025 14:12:25 01/22/2001/22/2025 PREGN TONY, INITI AL SCREE N yeast FLOORWALKER Not Available [facility] ([facility]) [address] [place], [address], 01/23/2025 14:12:25 01/22/20 25 01/22/2025 PREGN TONY, INITI AL SCREE N trichomonas FLOORWALKER Not Available [facility] ([facility]) [address] [place], [address], 01/23/2025 14:12:25 01/22/20 25 01/22/2025 PREGN TONY, INITI AL SCREE N comment FLOORWALKER Not Available [facility] ([facility]) [address] [place], [address], 01/23/2025 14:12:25 01/22/20 25 01/23/2025 PREGN TONY, INITI AL SCREE N chlamydia trachomatis, PEPE Negati ve negati ve Not Available [facility] ([facility]) [address] [place], [address], 01/23/2025 14:12:25 01/22/20 25 01/23/2025 PREGN TONY, INITI AL SCREE N neisseria gonorrhoeae, PEPE Negati ve negati ve Not Available [facility] ([facility]) [address] [place], [address], 01/23/2025 14:12:25 01/22/20 25 01/23/2025 PREGN TONY, INITI AL SCREE N urine culture,pren atal, w/gbs Final report Not Available [facility] ([facility]) [address] [facility], [place], [address], 01/23/2025 14:12:01/22/2001/23/2025 PREGN TONY, INITI AL SCREE N result 1 No growth Not Available [facility] ([facility]) [address] [facility], [place], [address], 01/23/2025 14:12:25 01/22/2001/22/2025 HEMOG LOBIN A1C hemoglobin A1C 5.1 % 4.8-5. 6 normal Predi abete s: 5.7 - 6.4 Diabe crystal: >6.4 Glyce carola contr ol for adult s with diabe crystal: <7.0 Not Available [facility] ([facility]) [address] [facility], [place], [address], 01/23/2025 14:12:25 01/22/2001/26/2025 COMPL IANCE DRUG RON SIS, UR summary [...] mao consu ltati on, pleas e call . ===== ===== ===== ===== ===== ===== ===== ===== ===== ===== ===== ===== ===== === Not Available [facility] ([facility]) [address] [facility], [place], [address], 01/26/2025 10:35:57 01/22/20 25 01/26/2025 COMPL IANCE DRUG RON SIS, UR pdf . Not Available [facility] ([facility]) [address] [facility], [place], [address], 01/26/2025 10:35:57 01/22/20 25 01/21/2025 pregn tony test, urine HCG positi ve Not Available [facility] [address] [facility] , [place], [address], 01/21/2025 08:32:47 02/01/20 25 02/06/2025 MATER NIT21 PLUS CORE gestation Single ton Not Available [facility] ([facility]) [address] [facility], [place], [address], 02/06/2025 03:08:41 02/01/2002/06/2025 MATER NIT21 PLUS CORE fraction 16% Not Available [facility] ([facility]) [address] [facility], [place], [address], 02/06/2025 03:08:41 02/01/2002/06/2025 MATER NIT21 PLUS CORE gestational age > or = 9W: Yes Not Available [facility] ([facility]) [address] [facility], [place], [address], 02/06/2025 03:08:41 02/01/2002/06/2025 MATER NIT21 PLUS CORE test result Negati ve Not Available [facility] ([facility]) [address] [place], [address], 02/06/2025 03:08:41 02/01/2002/06/2025 MATER NIT21 PLUS CORE 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 Clini moa corre latio n is sugnasima serranod. Not Available [facility] ([facility]) [address] [place], [address], 02/06/2025 03:08:41 02/01/2002/06/2025 MATER NIT21 PLUS CORE approved by Sandoval munson MD, PhD, [facility] tor, [place] nom Labor atori es Not Available [facility] ([facility]) [address] [place], [address], 02/06/2025 03:08:41 02/01/20 25 02/06/2025 MATER NIT21 PLUS CORE trisomy 21 (down syndrome) Negati ve Not Available [facility] ([facility]) [address] [facility], [place], [address], 02/06/2025 03:08:41 02/01/2002/06/2025 MATER NIT21 PLUS CORE trisomy 18 (burt syndrome) Negati ve Not Available [facility] ([facility]) [address] [facility], [place], [address], 02/06/2025 03:08:41 02/01/2002/06/2025 MATER NIT21 PLUS CORE trisomy 13 (patau syndrome) Negati ve Not Available [facility] ([facility]) [address] [facility], [place], [address], 02/06/2025 03:08:41 02/01/2002/06/2025 MATER NIT21 PLUS CORE sex Commen t Consi stent with Femal e Not Available [facility] ([facility]) [address] [facility], [place], [address], 02/06/2025 03:08:41 02/01/2002/06/2025 MATER NIT21 PLUS CORE negative predictive value Note The Negat eddie Predi ctive Value (NPV) for triso my 21, 18, and 13 is great er than 99%. The NPV for SCA and ESS canno t be calcu lated as SCA and ESS are only repor phill when an abnor malit y is detec phill. Not Available [facility] ([facility]) [address] [facility], [place], [address], 02/06/2025 03:08:41 02/01/2002/06/2025 MATER NIT21 PLUS CORE positive predictive value N/A Not Available [facility] ([facility]) [address] [facility], [place], [address], 02/06/2025 03:08:41 02/01/2002/06/2025 MATER NIT21 PLUS CORE [...] yet been valid ated. Not Available [facility] ([facility]) [address] [facility], [place], [address], 02/06/2025 03:08:41 02/01/2002/06/2025 MATER NIT21 PLUS CORE test method Commen t Circu latin g cell- free DNA was purif ied from the plasm a compo nent of mater nal blood . The extra cted DNA was then conve rted into a [employer] DNA valentín ry for aneup loidy ron [...] s 16 and 22. Not Available [facility] ([facility]) [address] [facility], [place], [address], 02/06/2025 03:08:41 02/01/2002/06/2025 MATER NIT21 PLUS CORE performance Commen t The perfo rmanc e etelvina cteri stics of the Mater niT(R ) 21 PLUS labor atory -deve loped test (LDT) have been deter mined in a clini mao valid ation study with pregn ant women at incre ased risk for chrom osoma l aneup loidy .[1-4 ] Not Available [facility] ([facility]) [address] [facility], [place], [address], 02/06/2025 03:08:41 02/01/20 25 02/06/2025 MATER NIT21 PLUS CORE performance characterist ics Note ----- ----- ----- ----- ----- ----- ----- ----- ----- ----- ----- ---- ! Sex ! Accur acy: 99.4% ! !---- ----- ----- ----- ----- ----- ----- ----- ----- ----- ----- ---! ! Regio n (savanna gomez syndr ome) ! Est. Sens# ! Est. Spec ! !---- ----- ----- ----- ----- ----- ----- ----- ----- ----- ----- ---! ! Rafaela my 21 ([place] Syndr ome) ! 99.1% ! 99.9% ! !---- ----- ----- ----- ----- ----- ----- ----- ----- ----- ----- ---! ! Rafaela my 18 (Lyle quinn Syndr ome) ! >99.9 % ! 99.6% ! !---- ----- ----- ----- ----- ----- ----- ----- ----- ----- ----- ---! ! Rafaela my 13 (Pata u Syndr ome) ! 91.7% ! 99.7% ! !---- ----- ----- ----- ----- ----- ----- ----- ----- ----- ----- ---! ! Sex Chrom osome Aneup rena es## ! 96.2% ! 99.7% ! !---- ----- ----- ----- ----- ----- ----- ----- ----- ----- ----- ---! * As repor phill in [employer] datab [facility] [id number] [http [email or web address] booker.nc [email or web address] .[email or web address] .gov/ dbvar /stud ies/n [email or web address] / ] [...] eton gesta tion only. Not Available [facility] ([facility]) [address] [facility], [place], [address], 02/06/2025 03:08:41 02/01/20 25 02/06/2025 MATER NIT21 PLUS CORE limitations of the [...] accur acy and preci debora of prena efern diagn osis with CVS or amnio cente sis. A patie nt with a posit eddie test resul t shoul d be refer red for víctor ic couns eling and offer ed invas eddie prena efren diagn osis for confi rmati [...] multi ple gesta tions . A negat eddie resul t does not ensur e an unaff ected pregn tony nor does it exclu de the possi bilit y of other chrom osoma l abnor malit ies or defec ts which are not a part of these tests . An uninf ormat eddie resul t may be repor phill, the [...] the signi fican ce of a posit eddie or a non-r eport able resul t may invol ve both invas eddie testi ng and addit ional studi es [...] and Fragm in(R) ). Not Available [facility] ([facility]) [address] [facility], [place], [address], 02/06/2025 03:08:41 02/01/20 25 02/06/2025 MATER NIT21 PLUS CORE note Sandoval Alvaerz [employer] is a subsi diary of Labor atory Corpo ratio n of [facility] samuel truong, using the brand [employer]. This test was devel oped and its perfo rmanc e etelvina cteri stics deter mined by [employer]. It has not been clear ed or appro brian by the Food and Drug Admin istra tion. This labor atory is certi fied under the Clini mao Labor atory Impro vemen t Amend ments (CLIA ) as quali fied to perfo rm high compl exity clini mao labor atory testi ng and accre dited by the Colle nasima of Ballparceri can Patho logis ts (CAP) . Not Available [facility] ([facility]) [address] [facility], [place], [address], 02/06/2025 03:08:41 02/01/2002/06/2025 MATER NIT21 PLUS CORE references Sandoval garduno 1. Lourdes CHAUDHARI, et al. Víctor Med. 2012; 14(3) :296- 305. 2. Terry ELI, et al. Tanisha t Diag. 2013; 33(6) :591- 597. 3. Tigre C, et al. Clin Chem. 2015 Aug;6 1(4): 608-6 16. 4. Lourdes CHAUDHARI, et al. Víctor Med. 2011; 13(11 ):913 -920. 5. ACOG/ SMFM Pract ice Bulle tin No. 226, Feb 2020. Not Available [facility] ([facility]) [address] [facility], [place], [address], 02/06/2025 03:08:41 02/01/2002/06/2025 MATER NIT21 PLUS CORE pdf . Not Available [facility] ([facility]) [address] [facility], [place], [address], 02/06/2025 03:08:41 02/29/2002/28/2025 AFP, SERUM , OPEN SPINA BIFID A comment: Sandoval granger , Ph.D. , [facility] tor Refer ences : Avail able Upon Reque st. Multi ples Of Media n Cutof fs For AFP [place] tions Singl eton 2.5 Black 2.8 IDD 2.0 Twins 4.5 Abbre viati on Defin ition s IDD - Insul in Dep Diabe crystal OSBR - Open Spina Bifid a Risk For furth er inqui brandee conta ct [facility] Víctor ics Servi florentino at [phone]. This test was devel oped and its perfo rmanc e etelvina cteri stics deter mined by [employer]. It has not been clear ed or appro brian by the Food and Drug Admin istra tion. Not Available [facility] ([facility]) [address] [facility], [place], [address], 03/03/2025 20:09:53 02/29/2003/03/2025 AFP, SERUM , OPEN SPINA BIFID A results Report Not Available [facility] ([facility]) [address] [place], [address], 03/03/2025 20:09:53 02/29/2003/03/2025 AFP, SERUM , OPEN SPINA BIFID A test results: *Scree n Negati ve* Not Available [facility] ([facility]) [address] [place], [address], 03/03/2025 20:09:53 02/29/2003/03/2025 AFP, SERUM , OPEN SPINA BIFID A gest. age on collection date 15.6 weeks Not Available [facility] ([facility]) [address] [place], [address], 03/03/2025 20:09:53 02/29/2003/03/2025 AFP, SERUM , OPEN SPINA BIFID A gestat. age based on LMP 11/11 Recal culat ions are not recom saul d when gesta aneesh l datin g by LMP and ultra sound are withi n 10 days. Not Available [facility] ([facility]) [address] [facility], [place], [address], 03/03/2025 20:09:53 02/29/2003/03/2025 AFP, SERUM , OPEN SPINA BIFID A [age] Not Available [facility] ([facility]) [address] [place], [address], 03/03/2025 20:09:53 02/29/2003/03/2025 AFP, SERUM , OPEN SPINA BIFID A race Caucas neha Not Available [facility] ([facility]) [address] [place], [address], 03/03/2025 20:09:53 02/29/2003/03/2025 AFP, SERUM , OPEN SPINA BIFID A weight 204 lbs Not Available [facility] ([facility]) [address] [place], [address], 03/03/2025 20:09:53 02/29/2003/03/2025 AFP, SERUM , OPEN SPINA BIFID A insulin dep diabetes No Not Available [facility] ([facility]) [address] [place], [address], 03/03/2025 20:09:53 02/29/2003/03/2025 AFP, SERUM , OPEN SPINA BIFID A multiple gestation No Not Available [facility] ([facility]) [address] [place], [address], 03/03/2025 20:09:53 02/29/2003/03/2025 AFP, SERUM , OPEN SPINA BIFID A AFP value 14.2 NG/mL Not Available [facility] ([facility]) [address] [place], [address], 03/03/2025 20:09:53 02/29/2003/03/2025 AFP, SERUM , OPEN SPINA BIFID A AFP MOM 0.55 Not Available [facility] ([facility]) [address] [place], [address], 03/03/2025 20:09:53 02/29/2003/03/2025 AFP, SERUM , OPEN SPINA BIFID A OSBR risk 1 in [address] Not Available [facility] ([facility]) [address] [place], [address], 03/03/2025 20:09:53 02/29/2003/03/2025 AFP, SERUM , OPEN SPINA BIFID A interpretati on Commen t Inter preta tion: Scree n Negat eddie This resul t is scree n negat eddie for OSB. The AFP MoM calcu lated is based on the gesta aneesh l age provi ded. MS-AF P can ident yvette up to 80% of open neura l tube defec ts. Close d neura l tube defec ts and some open defec ts may not be detec phill by this test. This test does not scree n for Down Syndr ome or Triso my 18. If scree gustavo for Down Syndr ome or Triso my 18 is ashu ed, conta ct Víctor ic Custo cristopher Servi florentino to discu ss avail able optio ns. The Lamin duran Colle ge of Obste trici ans and Gynec ologi sts recom mends amnio cente sis be offer ed to women age 35 and older . Not Available [facility] ([facility]) [address] [place], [address], 03/03/2025 20:09:53 02/29/2003/03/2025 AFP, SERUM , OPEN SPINA BIFID A pdf . Not Available [facility] ([facility]) [address] [place], [address], 03/03/2025 20:09:53 02/29/2003/03/2025 IGP,C TNG,R FX APT HPV ALL PTH chlamydia, nuc. acid amp Negati ve negati ve Not Available [facility] ([facility]) [address] [place], [address], 03/06/2025 20:09:46 02/29/2003/03/2025 IGP,C TNG,R FX APT HPV ALL PTH gonococcus, nuc. acid amp Negati ve negati ve Not Available [facility] ([facility]) [address] [place], [address], 03/06/2025 20:09:46 02/29/2003/06/2025 IGP,C TNG,R FX APT HPV ALL PTH diagnosis: Commen t NEGAT EDDIE FOR INTRA EPITH ELIAL LESIO N OR MALIG KATHERYN . Not Available [facility] ([facility]) [address] [place], [address], 03/06/2025 20:09:46 02/29/20 25 03/06/2025 IGP,C TNG,R FX APT HPV ALL PTH specimen adequacy: Sandoval garduno Satis facto ry for evalu ation . Endoc ervic al and/o r squam ous metap lasti c cells (endo cervi mao compo nent) are prese nt. Not Available [facility] ([facility]) [address] [place], [address], 03/06/2025 20:09:46 02/29/20 25 03/06/2025 IGP,C TNG,R FX APT HPV ALL PTH clinician provided ICD10: Sandoval garduno Z12.4 Z11.3 Not Available [facility] ([facility]) [address] [place], [address], 03/06/2025 20:09:46 02/29/2003/06/2025 IGP,C TNG,R FX APT HPV ALL PTH performed by: Sandoval barrientos, Cytol ogist (ASCP ) Not Available [facility] ([facility]) [address] [place], [address], 03/06/2025 20:09:46 02/29/2003/06/2025 IGP,C TNG,R FX APT HPV ALL PTH . . Not Available [facility] ([facility]) [address] [place], [address], 03/06/2025 20:09:46 02/29/2003/06/2025 IGP,C TNG,R FX APT HPV ALL PTH note: Sandoval garduno The Pap smear is a scree gustavo test desig jelani to aid in the detec tion of greg ligna nt and malig nant condi tions of the uteri ne cervi x. It is not a diagn ostic proce dure and shoul d not be used as the sole means of detec ting cervi mao cance r. Both false -posi tive and false -nega tive repor ts do occur . Not Available [facility] ([facility]) [address] [facility], [place], [address], 03/06/2025 20:09:46 02/29/20 25 03/06/2025 IGP,C TNG,R FX APT HPV ALL PTH test methodology: Commen t This liqui d based ThinP rep(R ) pap test was inter prete d using the Holog ic(R) Geniu s(TM) Cervi mao Algor ithm whole slide imagi ng syste m. Not Available [facility] ([facility]) [address] [facility], [place], [address], 03/06/2025 20:09:46 02/29/20 25 03/06/2025 IGP,C TNG,R FX APT HPV ALL PTH . Commen t The HPV DNA refle x crite eder were not met with this speci men resul t there fore, no HPV testi ng was perfo rmed. Not Available [facility] ([facility]) [address] [facility], [place], [address], 03/06/2025 20:09:46 01/28/20 25 US, obste tric, 1st trime ster No observ ation record ed. [email or web address] [facility] [employer] [address] [place] [address] , [place], [address], 02/02/2025 07:34:52 02/06/20 25 01/31/2025 US, obste tric, 1st trime ster No observ ation record ed. BARCODE [facility] [employer] [address] [place] [address] , [place], [address], 02/05/2025 09:22:31 04/01/20 25 US, obste tric, 2nd trime ster No observ ation record ed. [email or web address] [facility] [employer] [address] [place] [address] , [place], [address], 04/01/2025 16:25:22 04/01/20 US, obste tric, trans vagin al No observ ation record ed. [email or web address] [facility] [employer] [address] [place] [address] , [place], [address], 04/01/2025 16:24:16 04/07/20 25 04/01/2025 US, obste tric, trans vagin al No observ ation record ed. [email or web address] [facility] [employer] [address] [place] [address] , [place], [address], 04/07/2025 15:45:19 04/07/20 25 04/01/2025 US, obste tric, trans vagin al No observ ation record ed. BARCODE [facility] [employer] [address] [place] [address] , [place], [address], 04/07/2025 18:06:40 04/29/20 US, obste tric, follo w-up No observ ation record ed. [email or web address] [facility] [employer] [address] [place] [address] , [place], [address], 04/29/2025 13:13:12 04/30/20 25 04/29/2025 US, obste tric, follo w-up No observ ation record ed. BARCODE [facility] [employer] [facility] [address] [place] [address] , [place], [address], 04/30/2025 17:06:49 Result Notes None recorded. Problems Name Problem SNOMED Code Status Onset Date Resolution Date Notes Provider Name and Address Organization Details Recorded Time Antenata l terri g Completed CF - Negative AFP - Negative M21 -Negativ e [facility]fusion [facility] [address], [place], [address] , [place] [facility] 11:36:43 Immuniza tion due 111824067 Completed [x] Flu-Decl ined [ ] COVID-CO VID+04/22 1 [x] Tdap @ 30 wk-given 07/21/21 [facility] [address], [place], [address] , [place] [facility] 2 11:36:43 Teenage pregnanc y 600374905 Completed In[facility] Nurse [facility] [address], [place], [address] , [place] [facility] 2 11:36:43 Teenage pregnanc y 687186549 Completed 09/23/2021 Infusion Nurse [facility] [address], [place], [address] , [place] [facility] 2 11:37:53 Urinary tract infectio n in pregnanc y 374314501 Completed + E. Coli [x ] GABRIELLA @ 12 wks- Mixed jaime [facility] [address], [place], [address] , [place] [facility] 2 11:36:43 Blood group O Rh(D) negative 534016608 Completed 09/23/2021 [x] RhoGAM @ 28 wks 07/13/21 [x] Antibody screen-n egative 07/13/21 In[facility] Nurse [facility] [address], [place], [address] , [place] [facility] 11:38:03 Blood group O Rh(D) negative 318678321 Completed [x] RhoGAM @ 28 wks 07/13/21 [x] Antibody screen-n egative 07/13/21 Infusion Nurse [address]RE [address], [place], [address] , [place] - [facility] 2 11:36:43 Maternal drug use 28709070 Completed +THC Reviewed -Avoid use in pregnanc y [x] UDS @ 28 wks-neg Infusion Nurse [facility] [address], [place], [address] , [place] - [facility] 2 11:36:42 Maternal drug use 60629805 Completed 09/23/2021 +THC Reviewed -Avoid use in pregnanc y [x] UDS @ 28 wks-neg Infusion Nurse [facility] [address], [place], [address] , [place] - [facility] 2 11:37:57 Suspecte d abnormal ity affectin g manageme nt of mother 92342529908 802570 Completed Possible spinal defect [ ] 03/19/21 in Reynaldo n In[facility] Nurse [facility] [address], [place], [address] , [place] - [facility] 2 11:36:43 Kyphosco liosis deformit y of spine 059655447 Completed Followin g by [place] with [facility]-See US report below. In[facility] Nurse [facility] [address], [place], [address] , [place] - [facility] 2 11:36:43 Thromboc ytopenic disorder 426694050 Completed Plat @ HX 324 Plat @ 30 wks- 91 [x] Aiden Plat with 1 hr gtt-81; referral to hematolo gy and results sent to [facility]-pt schedule d @ on 08/0608/05/21- visit [...] Dr. Hernandez in 2 months Infusion Nurse [facility] [address], [place], [address] , [place] - [facility] 2 11:36:42 Anemia 525708348 Completed Ferrous Sulfate QOD [ ] HGB @ 36 wks Infusion Nurse [facility] [address], [place], [address] , [place] - [facility] 2 11:36:43 Thromboc ytopenic disorder 233751736 Completed 01/21/2025 Plat @ HX 324 Plat @ 30 wks- 91 [x] Aiden Plat with 1 hr gtt-81; referral to hematolo gy and results sent to [facility]-pt schedule d @ on 08/0608/05/21- visit [...] with Dr. Hernandez in 2 months Marina Rapp, SARAH [address], [place], [address] , [place] - [facility] 5 15:21:28 Kyphosco liosis deformit y of spine 489693863 Completed 09/23/2021 Followin g by [place] with [facility]-See US report below. [facility] [address], [place], [address] , [place] - [facility] 2 11:37:43 Anemia 902790612 Completed 01/21/2025 Ferrous Sulfate QOD [ ] HGB @ 36 wks Marina Rapp APRN [address], [place], [address] , [place] - [facility] 5 15:20:52 Tachycar sb 3832521 Active 2020 Marina Rapp APRN [address], [place], [address] , [place] - [facility] 5 15:20:39 Chronic depressi on 012110909 Active 2020 Marinamelissa Rapp APRN [address], [place], [address] , [place] - [facility] 5 15:20:20 Anxiety 71704188 Active 2020 Marina Rapp APRN [address], [place], [address] , [place] - [facility] 5 15:20:34 Pregnanc y 24062002 Completed 202002/05/2021 Marina Rapp APRN [address], [place], [address] , [place] - [facility] 5 15:21:31 Maternal obesity complica ting pregnanc y, childbir th and the puerperi um, antepart um 91676024232 7 Completed 202009/23/2021 [facility] [address], [place], [address] , [place] [facility] 2 11:37:47 Chronic depressi on 120784670 Completed 2020 [facility] [address], [place], [address] , [place] - [facility] 2 11:36:43 Anxiety 51510326 Completed 2020 [facility] [address], [place], [address] , [place] [facility] 2 11:36:42 Benign gestatio nal thromboc ytopenia 693049621 Completed 2021 Marcia Guzman, THERAPIST ASST [address], [place], [address] , [place] - [facility] 2 12:46:29 Benign gestatio nal thromboc ytopenia 101481142 Completed 202109/23/2021 In[facility] Nurse [facility] [address], [place], [address] , [place] [facility] 2 11:37:39 Pregnanc y 34878386 Active 2024 Marina Rapp, THERAPIST ASST [address], [place], [address] , [place] - [facility] 5 15:21:30 Antenata l screenin g Active 2024 Mat21- 01/21/25 Negative ; AFP- 02/29/20 25 Negative ; CF- negative 2020 Guillermo Wu RN [address], [place], [address] , [place] - [facility] 5 11:07:48 Active immuniza tion Active 2024 Covid- declined 01/21/25; [ ]Tdap- @30wks; [x ] Flu-Give n Angelina Gallagher MD [address], [place], [address] , [place] [facility] 5 12:55:43 Overweig ht in adulthoo d with body mass index of 25 or more but less than 30 107359791 Active 2024 BMI: 28.1 starting wgt: 190 HgbA1c: 5.1 Marina Dionte, THERAPIST ASST [address], [place], [address] , [place] - [facility] 5 11:08:41 Supervis ion of high risk pregnanc y with history of previous section done 84088608340 106 Active 2024 Pr CS LST for indicati ons- desires schedled repeat ; [ ]obstetrics gynecology physician surg referral for repeat c/s Angelina Gallagher MD [address], [place], [address] , [place] - [facility] 5 13:08:53 Supervis ion of high risk pregnanc y with history of previous section done 29894096409 106 Active 2024 Pr CS LST for indicati ons- desires schedled repeat ; [ ]obstetrics gynecology physician surg referral for repeat c/s Angelina Gallagher MD [address], [place], [address] , [place] - [facility] 5 13:08:53 Problem [...] [facility] Nurse [facility] [address], [place], [address], [place] [facility] 09/23/2021 11:37:18 2 OB Ultrasound Summary completed Hermanroyer Am[place] - [facility] 08/13/2021 16:02:33 1 OB Ultrasound Summary completed Parkergregory [place] - [facility] 02/09/2021 15:12:35 Imaging Results None recorded. Procedure Notes None recorded. Medical Equipment None Reported. Allergies Allergen ID Allergen Name Allergen Category Reaction Reaction Severity Criticality Documentation Date Start Date Code Code System Note Provider Name and Address Organization Details Recorded Time 957304 mold extract environme nt other Not available low 04/07/20252022 56491 8 RxNorm Not Available amari - External [...] Available Not Available Not Available amoxicillin 875 mg-imani m clavulanate 125 mg tablet 02/09 completed [...] Available Vitals Date Recorded Body height Body mass index (BMI) [Percentile] Per age and sex Body mass index (BMI) Body weight Pain severity - 0-10 verbal numeric rating [Score] - Reported Systolic And Diastolic Provider Name and Address Organization Details Last Updated DateTime 5 175.26 cm 95 % 32.2 kg/m2 70428.1 4 g 0 122/80 mm[Hg] Vannessa Cole [place] - [facility] 15:20:01 Social History Question Answer Notes LastModified by Organizat ion Details LastModified Time Tobacco Smoking Status Never Smoker iXao Barron RN [address], [place], [address], [place] - [facility] 02/05/2021 15:39:08 Do You [...] Or The Highest Degree You Have Received? [id number] Information not available 01/21/2025 Have There Been Any Changes To Your Family Or Social Situation? No Information no t available 01/21/2025 Have You Recently Or Are You Planning To Travel To An Area With Zika Virus? No Information not available 01/21/2025 What Is Your Home Situation? Mother Information not available 02/05/2021 Do You Have A Medical Power Of Aerial Sprayer? No Information not available 01/21/2025 What Was [...] 02/05/2021 Are you currently employed? Yes [employer] Information not available 01/21/2025 Do you have [...] anxious, or unable to sleep at night)? [id number] Information not available 01/21/2025 Do you have [...] PF 5 completed Angelina Gallagher MD [address], [place], [address], [place] [facility] 04/29/2025 13:15:35 HPV9 9 completed Leana Maria [place], [place] [facility] 03/07/2022 13:48:35 Hib (PRP-OMP) 5 completed Leana [place] [facility] 03/07/2022 13:48:35 Tdap 6 completed Leana [place] [facility] 03/07/2022 13:48:35 DTaP, unspecified formulation 6 completed Leana [place] [facility] 03/07/2022 13:48:36 Hep A, ped/adol, 2 dose 9 completed Leana [place] [facility] 03/07/2022 13:48:36 DTaP, unspecified formulation 5 completed Leana [place] [facility] 03/07/2022 13:48:36 varicella 5 completed Leana [place] [facility] 03/07/2022 13:48:36 HPV9 8 completed Leana [place] [facility] 03/07/2022 13:48:36 pneumococcal conjugate PCV 7 5 completed Leana [place] [facility] 03/07/2022 13:48:36 Hib (PRP-OMP) 5 completed Leana [place] [facility] 03/07/2022 13:48:36 Hep B, adolescent or pediatric 4 completed Leana [place] [facility] 03/07/2022 13:48:36 meningococcal MCV4P 6 completed Leana [place] [facility] 03/07/2022 13:48:36 Hib (PRP-OMP) 5 completed Leana [place] [facility] 03/07/2022 13:48:36 MMR 8 completed Leana [place] [facility] 03/07/2022 13:48:36 varicella 6 completed Leana [place] [facility] 03/07/2022 13:48:36 pneumococcal conjugate PCV 7 5 completed Leana Glass [place] [facility] 03/07/2022 13:48:36 DTaP, unspecified formulation 8 completed Leana [place] [facility] 03/07/2022 13:48:36 IPV 5 completed Leana [place] [facility] 03/07/2022 13:48:36 Influenza, split virus, quadrivalent, PF 8 completed Le[place] [facility] 03/07/2022 13:48:36 Tdap 2 completed Leana [place] [facility] 03/07/2022 13:48:36 IPV 8 completed Le[place] Glass [place] [facility] 03/07/2022 13:48:36 DTaP-Hep B-IPV 5 completed Le[place] [facility] 03/07/2022 13:48:36 meningococcal MCV4, unspecified formulation 6 completed Leana [place] [facility] 03/07/2022 13:48:36 Past Encounters Encounter ID Performer Location Encounter Start Date Encounter Closed Date Diagnosis/Indication Diagnosis SNOMED-CT Code Diagnosis ICD10 Code Diagnosis IMO Codes Diagnosis Note [id number] DO Es Canales [employer] [address] [facility] [place] [address] 04/01/2025 13:53:30 04/01/2025 15:54:49 Supervision of high risk with history of previous section done 7445262656 9106 O09.90 Z98.891 [id number] [facility] 9809230 R00. 0 01/21/25 no meds Chronic depression 36457 0009 F34.1 01/21/25 no meds Anxiety 10394558 F41.9 01/21/25 no meds Gestation period, 20 weeks 35566188 Z3A.20 0760937 Body mass index 30+ - obesity 482089786 Z68.32 106275 screening 2437 25908 Z36.9 7430230 Health Concerns Section Related Observation LastModified by Organization Detai ls LastModified Time None Recorded Concern Status LastModified by Organization Details LastModified Time None Recorded Payers Encounter Date Sequence Insurance Name Policy Number Policy Norton Covered Member ID Norton Member ID Guarantor Name 04/01/2025 1 [facility] (MEDICAID HMO) Ileana Bill [id number] Marina Radha Notes Date Note Type Note Provider Name a nd Address Organization Details Recorded Time 04/01/2025 text/html [place], [place] Yris Warner DO [address], [place], [address], [place] [facility] 04/01/2025 16:25:51 OBGyn Episode Ob Episode Information Episode Created Date Number of Fetuses Patient Bloodtype Patient rh Status Prepregnancy Weight lbs Domestic Partner Domestic Partner Phone Father Name Story Teller Status 01/22/20 25 1 O Negative 190 Jesus , 25 [employer] OPEN Fetus Data First Name Last Name Admitted to NICU Weight (g) Sex Living Outcome Pediatric Complications Fetus ID Race Codes Race Delivery Type [id number] Problems Problem Notes Lives- [place] bistrobreast and bottle/[id number]: Primary c/s at for kyphoscoliosis and vertriculomegaly, [...] with history of previous section done 01/21/2025 [id number] Pr C S LST for indications- desires schedled repeat ;[ ]obstetrics gynecology physician surg referral for repeat c/s screening 01/21/2025 237726951 Mat21- 01/21/25 Negative; AFP- 02/28/2025 Negative; CF- negative 2020 Active immunization 01/21/2025 31358750 Covid- declined 01/21/25; [ ]Tdap- @30wks; [x ] Flu-Given 04-29-2025 Overweight in adulthood with body mass index of 25 or more but less than 30 01/21/2025 762560244 BMI: 2 8.1starting wgt: 623UmeE9a: 5.1 Santi Calculation Initial Santi Date Initial [...] Gestation 0 lshower 04/29/2025 08/24/19 26 0 Pre- Flowsheet Flowsheet Date 01/21/2025 Parker Score Blood Edema Fundus Height Fundus Units Glucose Ketones Leukocytes Nitrite Labor Signs Protein Cervic Dilation Cervic Effacement Cervic Station neg none none negative none Negative none neg Type Weight in lbs Pre/Post Dialysis Refused With clothes 190.750641476516 BP Diastolic BP Location Tested BP Systolic [...] Type Weight in lbs Pre/Post Dialysis Refused 192.006819661340 BP Diastolic BP Location Tested BP Systolic BP Type 80 118 sitting Fetus Heart Rate Present A Present Fetus Movement A No Comments no vb, no lof, no complaints voiced today.//BT//Here or dating scan. US showed 10+6, c/w LMP. Keep EDC . C/O nasuea-Discussed OTC options. Desires [id number] today. Scheduled for OBPE 02/28/25. RH Flowsheet Date 02/28/2025 Parker Score Blood Edema Fundus Height Fundus Units Glucose Ketones Leukocytes Nitrite Labor Signs Protein Cervic Dilation Cervic Effacement Cervic Station neg none 15 wks none negative none Negative none neg Type Weight in lbs Pre/Post Dialysis Refused Weight 204.576556420717 BP Diastolic BP Location Tested BP Systolic [...] 4/8. RTC 4 wks with anatomy scan. RH Flowsheet Date 04/01/2025 Parker Score Blood Edema Fundus Height Fundus Units Glucose Ketones Leukocytes Nitrite Labor Signs Protein Cervic Dilation Cervic Effacement Cervic Station neg none 20 wks none negative Negative none neg Type Weight in lbs Pre/Post Dialysis Refused With clothes 218.028342863165 BP Diastolic BP Location Tested BP Systolic [...] in lbs Pre/Post Dialysis Refused With clothes 240.357222423329 BP Diastolic BP Location Tested BP Systolic [...] and at least 3 to 4 years. States saw cardiology at during her 2021 but did not have ongoing outpatient follow-up. States had Holter but no tachycardia was captured [...] 90, O2 sat 100.Will refer her onto [facility] for up-to-date testing and consideration for possible [...] At Estimated Date of Delivery false Thalassemia (Swiss, Kittitian, Mediterranean, Or Background): MCV < 80 false Neural Tube Defect (Meningom yelocele, Spina Bifida, Or Anencephaly) false Congenital Heart Defect false Down Syndrome false Suridner-Sachs (eg, Zoroastrian, Cajun, Finnish-South Sudanese) f alse Gigi Disease false Sickle Cell [...] By 01/21/2025 Desire for unplanned 01/21/2025 Alcohol ad01/21/2025 Illicit/recreational drugs a duke01/21/2025 Nutrition ad01/21/2025 Weight gain counseling 15-25# aduke 24 01/21/2025 Intimate Partner Violence ad 01/21/2025 Unstable Housing 01/21/2025 Use of any medicatio ns (including supplements, vitamins, herbs, or OTC drugs) discussed 01/21/2025 Avoidance of saunas or hot tubs 01/21/2025 Indications for ultrasonography 01/21/2025 Comminucation Barriers aduk01/21/2025 Anticipated course o f care 01/21/2025 Toxoplasmosis precau tions (cats/raw meat) ad01/21/2025 Sexual activity 01/21/2025 Exercise 01/21/2025 Tobacco/smoking cess [...] use 01/21/2025 Childbirth classes/h ospital facilities 01/21/2025 ad01/21/2025 Screening for aneuploidy peter [email or web address] Second Trimester [...]
--- OUTSIDE RECORDS SUMMARY | 2025-05-01 01:21 | XMS_ITS ---
Author Organization Unknown ENCOUNTERS Encounter Performer Location Date Diagnosis Diagnosis Status Pre Admit [facility] [address] [place] [address] [id number] Emergency [facility] [address] [place] [address] [id number] [facility] [address] [place] [address] [phone] [facility] Jodie Kumar [facility] [address] [place] [address] [id number] [facility] [address] [place] [address] [id number] [facility] [address] [place] [address] [id number] [facility] Ishmael Nelson [facility] [address] [place] [address] [id number] [facility] [address] [place] [address] [phone] [facility] [address] [place] [address] [phone] [place] *Note: Encounters from your own facility or health system may be excluded. Allergies, Adverse Reactions, Alerts Allergen Type Severity Identification Date Medications Name Date Quantity Days Supplied [facility] Number
--- OUTSIDE RECORDS SUMMARY | 2025-05-01 01:22 | XMS_ITS | Data Portability ---
Author Organization [facility] Address [address] [place] [address] Assessment No assessment recorded. Plan of Treatment Reminders Order Date Submit Date Provider Last Modified By Organization Details Last Modified Time Details Appointments OB 1hr Glucose 2025 08:40A M Mildred raman, DO Not available Not available Not available Lab urinalysi s, dipstick 2024 025 AMARI [facility] [employer], [address] [place] [address] , [place], [address], 04/29/2025 13:51:23 urinalysi s, dipstick 2024 025 [email or web address] [facility] [employer], [address] [place] [address] , [place], [address], 04/01/2025 16:25:28 urinalysi s, dipstick 2024 025 yun [facility] [employer], [address] [place] [address] , [place], [address], 02/28/2025 16:48:03 afp (alpha-fe toprotein ) panel, maternal screen, serum 2024 025 PETROLIA [facility], [address], [address], [place], [address], 03/03/2025 20:09:53 cytology report, thin prep, smear or scraping, cervical or vaginal 2024 025 AMARI [facility], [address], [place], [place], [address], 03/06/2025 20:09:46 urinalysi s, dipstick 2024 025 yun [facility] [employer], [address] [place] [address] , [place], [address], 01/31/2025 14:20:35 aneuploid y risk and X & Y analysis, chromosom e specific circulati ng cell free (CCF) DNA, maternal serum 2024 025 AMARI [facility], [address], [place], [place], [address], 02/06/2025 03:08:41 drug screen, 14 drugs (detectim ed), urine 2024 025 AMARI [facility], [address], [place] [address], [place], [address], 01/26/2025 10:35:57 HbA1c (hemoglob in A1c), blood 2024 025 AMARI [facility], [address], [place] [address], [place], [address], 01/23/2025 14:12:25 panel 2024 025 AMARI [facility], [address], [place], [place], [address], 01/23/2025 14:12:25 test, urine [email or web address] [employer], [address] [place] [address] , [place], [address], 01/21/2025 15:28:57 urinalysi s, dipstick [email or web address] [employer], [address] [place] [address] , [place], [address], 01/21/2025 15:28:57 Referral cardiolog ist referral 2024 025 [facility], [address], [place], [address], 04/29/2025 14:32:43 Procedures None recorded. Surgeries None recorded. Imaging US, obstetric , follow-up 2024 025 linette [facility] [employer], [address] [place] [address] , [place], [address], 04/29/2025 13:15:35 US, obstetric , 2nd trimester 2024 025 [email or web address] [facility] [employer], [address] [place] [address] , [place], [address], 04/01/2025 16:25:28 US, obstetric , transvagi nal 2024 025 [email or web address] [facility] [employer], [address] [place] [address] , [place], [address], 04/01/2025 16:25:28 US, obstetric , 1st trimester 2024 025 [email or web address] [facility] [employer], [address] [place] [address] , [place], [address], 02/02/2025 07:34:52 Medication Orders None recorded. Patient TargetsNo targets recorded. Patient Instructions Encounter Date Encounter Id Patient Instructions Last Modified By Organization Details Last Modified Time 01/21/2025 [id number] body mass index: care instructions Not available 01/21/2025 21:29:29 learning about healthy weight Not available 01/21/2025 21:29:29 high-risk : care instructions Not available 01/21/2025 21:28:29 -Discussed all lab work ordered today, pt consents to all. We will call abnormal test results in 7-10 days. Patient is advised that they will be notified of the availability of normal results from [facility] [employer] by phone call, text or email. Not available 01/21/2025 21:29:56 01/31/2025 [id number] body mass index: care instructions rhogge Not available 01/31/2025 14:20:35 learning about healthy weight rhogge Not available 01/31/2025 14:20:35 nausea and vomiting: care instructions rhogge Not available 01/31/2025 14:20:35 high-risk : care instructions rhogge Not available 01/31/2025 14:20:35 02/28/2025 [id number] body mass index: care instructions rhogge Not available 02/28/2025 16:48:03 learning about healthy weight rhogge Not available 02/28/2025 16:48:03 nausea and vomiting: care instructions rhogge Not available 02/28/2025 16:48:03 high-risk : care instructions rhogge Not available 02/28/2025 16:48:03 04/01/2025 [id number] high-risk : care instructions solzeski Not available 04/01/2025 16:25:28 body mass index: care instructions solzeski Not available 04/01/2025 16:25:28 learning about healthy weight solzeski Not available 04/01/2025 16:25:28 04/29/2025 [id number] high-risk : care instructions lshower Not available 04/29/2025 13:15:35 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 Referral for Ta chycardia Referring Physician: Angelina Gallagher, WAREHOUSE CONSULTANT, Encounter Date: 04/29/2025 Results Created Date Observation Date Name Description Value Unit Range Abnormal Flag Note LastModifiedBy Organization Detail LastModifiedTime 01/22/2001/22/2025 PREGN TONY, INITI AL SCREE N HBsAg screen Negati ve negati ve Not Available [facility] ([facility]) [address] [facility], [place], [address], 01/23/2025 14:12:25 01/22/2001/22/2025 PREGN TONY, INITI AL SCREE N HCV Ab Non Reacti ve non reacti ve Not Available [facility] ([facility]) [address] [facility], [place], [address], 01/23/2025 14:12:25 01/22/2001/22/2025 PREGN TONY, INITI AL SCREE N interpretati on: Commen t Not infec phill with HCV unles s early or acute infec tion is suspe cted (whic h may be delay ed in an immun ocomp romis ed indiv idual ), or other evide nce exist s to indic ate HCV infec tion. Not Available [facility] ([facility]) [address] [facility], [place], [address], 01/23/2025 14:12:25 01/22/2001/22/2025 PREGN TONY, INITI AL SCREE N RPR Non Reacti ve non reacti ve Not Available [facility] ([facility]) [address] [place], [address], 01/23/2025 14:12:25 01/22/2001/22/2025 PREGN TONY, INITI AL SCREE N rubella antibodies, IgG 1.09 index immune >0.99 Non-i mmune <0.90 Equiv ocal 0.90 - 0.99 Immun e >0.99 Not Available [facility] ([facility]) [address] [facility], [place], [address], 01/23/2025 14:12:25 01/22/2001/22/2025 PREGN TONY, INITI AL SCREE N ABO grouping O Not Available [facility] ([facility]) [address] [place], [address], 01/23/2025 14:12:25 01/22/2001/22/2025 PREGN TONY, INITI AL SCREE N Rh factor Negati ve Pleas e note: Prior recor ds for this patie nt's ABO / Rh type are not avail able for addit ional verif icati on. Not Available [facility] ([facility]) [address] [facility], [place], [address], 01/23/2025 14:12:25 01/22/20 25 01/22/2025 PREGN TONY, INITI AL SCREE N antibody screen Negati ve negati ve Not Available [facility] ([facility]) [address] [facility], [place], [address], 01/23/2025 14:12:25 01/22/2001/22/2025 PREGN TONY, INITI AL SCREE N HIV Ab/P24 Ag screen Non Reacti ve non reacti ve HIV-1 /HIV- 2 antib odies and HIV-1 p24 antig en were NOT detec phill. There is no labor atory evide nce of HIV infec tion. HIV Negat eddie Not Available [facility] ([facility]) [address] [facility], [place], [address], 01/23/2025 14:12:25 01/22/20 25 01/22/2025 PREGN TONY, INITI AL SCREE N WBC 8.6 x10e3 /uL 3.4-10 .8 normal Not Available [facility] ([facility]) [address] [place], [address], 01/23/2025 14:12:25 01/22/20 25 01/22/2025 PREGN TONY, INITI AL SCREE N RBC 4.55 x10e6 /uL 3.77-5 .28 normal Not Available [facility] ([facility]) [address] [place], [address], 01/23/2025 14:12:25 01/22/2001/22/2025 PREGN TONY, INITI AL SCREE N hemoglobin 13.4 g/dL 11.1-1 5.9 normal Not Available [facility] ([facility]) [address] [place], [address], 01/23/2025 14:12:25 01/22/2001/22/2025 PREGN TONY, INITI AL SCREE N hematocrit 40.5 % 34.0-4 6.6 normal Not Available [facility] ([facility]) [address] [facility], [place], [address], 01/23/2025 14:12:25 01/22/2001/22/2025 PREGN TONY, INITI AL SCREE N MCV 89 fL 79-97 normal Not Available [facility] ([facility]) [address] [facility], [place], [address], 01/23/2025 14:12:25 01/22/20 25 01/22/2025 PREGN TONY, INITI AL SCREE N MCH 29.5 pg 26.6-3 3.0 normal Not Available [facility] ([facility]) [address] [facility], [place], [address], 01/23/2025 14:12:25 01/22/2001/22/2025 PREGN TONY, INITI AL SCREE N MCHC 33.1 g/dL 31.5-3 5.7 normal Not Available [facility] ([facility]) [address] [facility], [place], [address], 01/23/2025 14:12:25 01/22/2001/22/2025 PREGN TONY, INITI AL SCREE N RDW 12.1 % 11.7-1 5.4 Not Available [facility] ([facility]) [address] [facility], [place], [address], 01/23/2025 14:12:25 01/22/2001/22/2025 PREGN TONY, INITI AL SCREE N platelets 273 x10e3 /uL 150-45 0 normal Not Available [facility] ([facility]) [address] [facility], [place], [address], 01/23/2025 14:12:25 01/22/20 25 01/22/2025 PREGN TONY, INITI AL SCREE N neutrophils 76 % not estab. normal Not Available [facility] ([facility]) [address] [facility], [place], [address], 01/23/2025 14:12:25 01/22/20 25 01/22/2025 PREGN TONY, INITI AL SCREE N lymphs 16 % not estab. normal Not Available [facility] ([facility]) [address] [facility], [place], [address], 01/23/2025 14:12:25 01/22/2001/22/2025 PREGN TONY, INITI AL SCREE N monocytes 7 % not estab. normal Not Available [facility] ([facility]) [address] [facility], [place], [address], 01/23/2025 14:12:25 01/22/20 25 01/22/2025 PREGN TONY, INITI AL SCREE N eos 0 % not estab. normal Not Available [facility] ([facility]) [address] [facility], [place], [address], 01/23/2025 14:12:25 01/22/20 25 01/22/2025 PREGN TONY, INITI AL SCREE N basos 1 % not estab. normal Not Available [facility] ([facility]) [address] [facility], [place], [address], 01/23/2025 14:12:25 01/22/2001/22/2025 PREGN TONY, INITI AL SCREE N immature cells UNDERTAKER ASSISTANT Not Available [facility] ([facility]) [address] [facility], [place], [address], 01/23/2025 14:12:25 01/22/2001/22/2025 PREGN TONY, INITI AL SCREE N neutrophils (absolute) 6.5 x10e3 /uL 1.4-7. 0 normal Not Available [facility] ([facility]) [address] [facility], [place], [address], 01/23/2025 14:12:25 01/22/20 25 01/22/2025 PREGN TONY, INITI AL SCREE N lymphs (absolute) 1.3 x10e3 /uL 0.7-3. 1 normal Not Available [facility] ([facility]) [address] [facility], [place], [address], 01/23/2025 14:12:25 01/22/20 25 01/22/2025 PREGN TONY, INITI AL SCREE N monocytes(ab solute) 0.6 x10e3 /uL 0.1-0. 9 normal Not Available [facility] ([facility]) [address] [facility], [place], [address], 01/23/2025 14:12:25 01/22/20 25 01/22/2025 PREGN TONY, INITI AL SCREE N eos (absolute) 0.0 x10e3 /uL 0.0-0. 4 normal Not Available [facility] ([facility]) [address] [facility], [place], [address], 01/23/2025 14:12:25 01/22/20 25 01/22/2025 PREGN TONY, INITI AL SCREE N baso (absolute) 0.1 x10e3 /uL 0.0-0. 2 normal Not Available [facility] ([facility]) [address] [place], [address], 01/23/2025 14:12:25 01/22/20 25 01/22/2025 PREGN TONY, INITI AL SCREE N immature granulocytes 0 % not estab. Not Available [facility] ([facility]) [address] [place], [address], 01/23/2025 14:12:25 01/22/20 25 01/22/2025 PREGN TONY, INITI AL SCREE N immature grans (abs) 0.0 x10e3 /uL 0.0-0. 1 Not Available [facility] ([facility]) [address] [facility], [place], [address], 01/23/2025 14:12:25 01/22/2001/22/2025 PREGN TONY, INITI AL SCREE N NRBC UNDERTAKER ASSISTANT Not Available [facility] ([facility]) [address] [facility], [place], [address], 01/23/2025 14:12:25 01/22/2001/22/2025 PREGN TONY, INITI AL SCREE N hematology comments: UNDERTAKER ASSISTANT Not Available [facility] ([facility]) [address] [facility], [place], [address], 01/23/2025 14:12:25 01/22/2001/22/2025 PREGN TONY, INITI AL SCREE N specific gravity 1.023 1.005- 1.030 normal Not Available [facility] ([facility]) [address] [facility], [place], [address], 01/23/2025 14:12:25 01/22/2001/22/2025 PREGN TONY, INITI AL SCREE N pH 6.0 5.0-7. 5 normal Not Available [facility] ([facility]) [address] [facility], [place], [address], 01/23/2025 14:12:25 01/22/2001/22/2025 PREGN TONY, INITI AL SCREE N urine-color Yellow yellow Not Available [facility] ([facility]) [address] [facility], [place], [address], 01/23/2025 14:12:25 01/22/2001/22/2025 PREGN TONY, INITI AL SCREE N appearance Cloudy clear abnormal Not Available [facility] ([facility]) [address] [facility], [place], [address], 01/23/2025 14:12:25 01/22/202025 PREGN TONY, INITI AL SCREE N WBC esterase Negati ve negati ve Not Available [facility] ([facility]) [address] [place], [address], 01/23/2025 14:12:25 01/22/20 25 01/22/2025 PREGN TONY, INITI AL SCREE N protein Negati ve negati ve/tra ce Not Available [facility] ([facility]) [address] [place], [address], 01/23/2025 14:12:25 01/22/2001/22/2025 PREGN TONY, INITI AL SCREE N glucose Negati ve negati ve Not Available [facility] ([facility]) [address] [place], [address], 01/23/2025 14:12:25 01/22/20 25 01/22/2025 PREGN TONY, INITI AL SCREE N ketones Negati ve negati ve Not Available [facility] ([facility]) [address] [place], [address], 01/23/2025 14:12:25 01/22/20 25 01/22/2025 PREGN TONY, INITI AL SCREE N occult blood Negati ve negati ve Not Available [facility] ([facility]) [address] [place], [address], 01/23/2025 14:12:25 01/22/2001/22/2025 PREGN TONY, INITI AL SCREE N bilirubin Negati ve negati ve Not Available [facility] ([facility]) [address] [place], [address], 01/23/2025 14:12:25 01/22/20 25 01/22/2025 PREGN TONY, INITI AL SCREE N urobilinogen ,semi-qn 0.2 mg/dL 0.2-1. 0 normal Not Available [facility] ([facility]) [address] [facility], [place], [address], 01/23/2025 14:12:25 01/22/20 25 01/22/2025 PREGN TONY, INITI AL SCREE N nitrite, urine Negati ve negati ve Not Available [facility] ([facility]) [address] [facility], [place], [address], 01/23/2025 14:12:25 01/22/20 25 01/22/2025 PREGN TONY, INITI AL SCREE N microscopic examination Commen t Micro scopi c follo ws if indic ated. Not Available [facility] ([facility]) [address] [facility], [place], [address], 01/23/2025 14:12:25 01/22/20 25 01/22/2025 PREGN TONY, INITI AL SCREE N microscopic examination See below: Micro scopi c was indic ated and was perfo rmed. Not Available [facility] ([facility]) [address] [facility], [place], [address], 01/23/2025 14:12:25 01/22/20 25 01/22/2025 PREGN TONY, INITI AL SCREE N WBC 0-5 /hpf 0 - 5 Not Available [facility] ([facility]) [address] [facility], [place], [address], 01/23/2025 14:12:25 01/22/20 25 01/22/2025 PREGN TONY, INITI AL SCREE N RBC 0-2 /hpf 0 - 2 Not Available [facility] ([facility]) [address] [facility], [place], [address], 01/23/2025 14:12:25 01/22/20 25 01/22/2025 PREGN TONY, INITI AL SCREE N epithelial cells (non renal) >10 /hpf 0 - 10 abnormal Not Available [facility] ([facility]) [address] [facility], [place], [address], 01/23/2025 14:12:25 01/22/20 25 01/22/2025 PREGN TONY, INITI AL SCREE N epithelial cells (renal) UNDERTAKER ASSISTANT Not Available [facility] ([facility]) [address] [facility], [place], [address], 01/23/2025 14:12:25 01/22/20 25 01/22/2025 PREGN TONY, INITI AL SCREE N casts None seen /lpf none seen Not Available [facility] ([facility]) [address] [facility], [place], [address], 01/23/2025 14:12:25 01/22/20 25 01/22/2025 PREGN TONY, INITI AL SCREE N cast type UNDERTAKER ASSISTANT Not Available [facility] ([facility]) [address] [facility], [place], [address], 01/23/2025 14:12:25 01/22/20 25 01/22/2025 PREGN TONY, INITI AL SCREE N crystals UNDERTAKER ASSISTANT Not Available [facility] ([facility]) [address] [facility], [place], [address], 01/23/2025 14:12:25 01/22/20 25 01/22/2025 PREGN TONY, INITI AL SCREE N crystal type UNDERTAKER ASSISTANT Not Available [facility] ([facility]) [address] [place], [address], 01/23/2025 14:12:25 01/22/20 25 01/22/2025 PREGN TONY, INITI AL SCREE N mucus threads UNDERTAKER ASSISTANT Not Available [facility] ([facility]) [address] [place], [address], 01/23/2025 14:12:25 01/22/20 25 01/22/2025 PREGN TONY, INITI AL SCREE N bacteria Few none seen/f ew Not Available [facility] ([facility]) [address] [place], [address], 01/23/2025 14:12:25 01/22/20 25 01/22/2025 PREGN TONY, INITI AL SCREE N yeast UNDERTAKER ASSISTANT Not Available [facility] ([facility]) [address] [facility], [place], [address], 01/23/2025 14:12:25 01/22/20 25 01/22/2025 PREGN TONY, INITI AL SCREE N trichomonas UNDERTAKER ASSISTANT Not Available [facility] ([facility]) [address] [facility], [place], [address], 01/23/2025 14:12:25 01/22/20 25 01/22/2025 PREGN TONY, INITI AL SCREE N comment UNDERTAKER ASSISTANT Not Available [facility] ([facility]) [address] [facility], [place], [address], 01/23/2025 14:12:25 01/22/20 25 01/23/2025 PREGN TONY, INITI AL SCREE N chlamydia trachomatis, PEPE Negati ve negati ve Not Available [facility] ([facility]) [address] [facility], [place], [address], 01/23/2025 14:12:25 01/22/20 25 01/23/2025 PREGN TONY, INITI AL SCREE N neisseria gonorrhoeae, PEPE Negati ve negati ve Not Available [facility] ([facility]) [address] [place], [address], 01/23/2025 14:12:25 01/22/20 25 01/23/2025 PREGN TONY, INITI AL SCREE N urine culture,pren atal, w/gbs Final report Not Available [facility] ([facility]) [address] [place], [address], 01/23/2025 14:12:25 01/22/20 25 01/23/2025 PREGN TONY, INITI AL SCREE N result 1 No growth Not Available [facility] ([facility]) [address] [facility], [place], [address], 01/23/2025 14:12:25 01/22/2001/22/2025 HEMOG LOBIN A1C hemoglobin A1C 5.1 % 4.8-5. 6 normal Predi abete s: 5.7 - 6.4 Diabe crystal: >6.4 Glyce carola contr ol for adult s with diabe crystal: <7.0 Not Available [facility] ([facility]) [address] [facility], [place], [address], 01/23/2025 14:12:25 01/22/2001/26/2025 COMPL IANCE DRUG RON [...] mao consu ltati on, pleas e call [phone]. ===== ===== ===== ===== ===== ===== ===== ===== ===== ===== ===== ===== ===== === Not Available [facility] ([facility]) [address] [facility], [place], [address], 01/26/2025 10:35:57 01/22/20 25 01/26/2025 COMPL IANCE DRUG RON SIS, UR pdf . Not Available [facility] ([facility]) [address] [facility], [place], [address], 01/26/2025 10:35:57 01/22/20 25 01/21/2025 pregn tony test, urine HCG positi ve Not Available [facility] [employer] [address] [facility] , [place], [address], 01/21/2025 08:32:47 02/01/2002/06/2025 MATER NIT21 PLUS CORE gestation Single ton Not Available [facility] ([facility]) [address] [facility], [place], [address], 02/06/2025 03:08:41 02/01/20 25 02/06/2025 MATER NIT21 PLUS CORE fraction 16% Not Available [facility] ([facility]) [address] [facility], [place], [address], 02/06/2025 03:08:41 02/01/20 25 02/06/2025 MATER NIT21 PLUS CORE gestational age > or = 9W: Yes Not Available [facility] ([facility]) [address] [place], [address], 02/06/2025 03:08:41 02/01/20 25 02/06/2025 MATER NIT21 PLUS CORE test result Negati ve Not Available [facility] ([facility]) [address] [place], [address], 02/06/2025 03:08:41 02/01/20 25 02/06/2025 MATER NIT21 PLUS CORE label paster comments Sandoval Mcneil speci men showe d an expec phill repre senta tion of chrom osome 21, 18 and 13 mater ial. Clini mao corre latio n is doris patricia. 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 Not Available [facility] ([facility]) [address] [place], [address], 02/06/2025 03:08:41 02/01/20 25 02/06/2025 MATER NIT21 PLUS CORE trisomy 13 (patau syndrome) Negati ve Not Available [facility] ([facility]) [address] [facility], [place], [address], 02/06/2025 03:08:41 02/01/2002/06/2025 MATER NIT21 PLUS CORE sex Commen t Consi stent with Femal e Not Available [facility] ([facility]) [address] [facility], [place], [address], 02/06/2025 03:08:41 02/01/20 25 02/06/2025 MATER NIT21 PLUS CORE negative predictive value Note The Negat eddie Predi ctive Value (NPV) for triso my 21, 18, and 13 is great er than 99%. The NPV for SCA and ESS canno t be calcu lated as SCA and ESS are only repor phill when an abnor malit y is detec phill. Not Available [facility] ([facility]) [address] [facility], [place], [address], 02/06/2025 03:08:41 02/01/2002/06/2025 MATER NIT21 PLUS CORE positive predictive value N/A Not Available [facility] ([facility]) [address] [facility], [place], [address], 02/06/2025 03:08:41 02/01/2002/06/2025 MATER NIT21 PLUS CORE [...] yet been valid ated. Not Available [facility] ([facility]) [address] [facility], [place], [address], 02/06/2025 03:08:41 02/01/2002/06/2025 MATER NIT21 PLUS CORE test method Commen t Circu latin g cell- free DNA was purif ied from the plasm a compo nent of mater nal blood . The extra cted DNA was then conve rted into a [employer] ic DNA valentín ry for aneup loidy ron [...] s 16 and 22. Not Available [facility] ([facility]) [address] [facility], [place], [address], 02/06/2025 03:08:41 02/01/2002/06/2025 MATER NIT21 PLUS CORE performance Commen t The perfo rmanc e etelvina cteri stics of the Mater niT(R ) 21 PLUS labor atory -deve loped test (LDT) have been deter mined in a clini mao valid ation study with pregn ant women at incre ased risk for chrom osoma l aneup loidy .[1-4 ] Not Available [facility] ([facility]) [address] [facility], [place], [address], 02/06/2025 03:08:41 02/01/2002/06/2025 MATER NIT21 PLUS CORE performance characterist ics Note ----- ----- ----- ----- ----- ----- ----- ----- ----- ----- ----- ---- ! Sex ! Zia rodriguez: 99.4% ! !---- ----- ----- ----- ----- ----- ----- ----- ----- ----- ----- ---! ! Deon n (savanna gomez syndr ome) ! Est. Sens# ! Est. Spec ! !---- ----- ----- ----- ----- ----- ----- ----- ----- ----- ----- ---! ! Rafaela my 20 (Down Syndr ome) ! 99.1% ! 99.9% ! [...] ----- ----- ----- ---! ! Sex Chrom ibeth chase es## ! 96.2% ! 99.7% ! !---- ----- ----- ----- ----- ----- ----- ----- ----- ----- ----- ---! * As repor phill in ISCA datab ase nstd3 7 [http [email or web address] booker.nc [email or web address] .[email or web address] [email or web address]/ dbvar /stud ies/n std37 / ] [...] eton gesta tion only. Not Available [facility] ([facility]) [address] [facility], [place], [address], 02/06/2025 03:08:41 02/01/20 25 02/06/2025 MATER NIT21 [...] and Fragm in(R) ). Not Available [facility] ([facility]) [address] [facility] [facility], [place], [address], 02/06/2025 03:08:41 02/01/2002/06/2025 MATER NIT21 PLUS CORE note Sandoval garduno Incluyeme.comshantel [employer]. is a subsi diary of Labor atory Corpo ratio n of Lamin truong, using the brand ComQi rp. This test was devel oped and its perfo rmanc e etelvina cteri stics deter mined by ComQi rp. It has not been clear ed or appro brian by the Food and Drug Admin istra tion. This labor atory is certi fied under the Clini mao Labor atory Impro vemen t Amend ments (CLIA ) as quali fied to perfo rm high compl exity clini mao labor atory testi ng and accre dited by the [place] real of Ameri can Patho logis ts (CAP) . Not Available [facility] ([facility]) [address] [facility], [place], [address], 02/06/2025 03:08:41 02/01/2002/06/2025 MATER NIT21 PLUS CORE references Sandoval t 1. Lourdes DEL REAL, et al. Víctor Med. 2012; 14(3) :296- 305. 2. Terry ELI, et al. Prena t Diag. 2013; 33(6) :591- 597. 3. Tigre C, et al. Clin Chem. 2015 Aug;6 1(4): 608-6 16. 4. Lourdes DEL REAL, et al. Víctor Med. 2011; 13(11 ):913 -920. 5. ACOG/ SMFM Pract ice Bulle tin No. 226, Feb 2020. Not Available [facility] ([facility]) [address] [facility], [place], [address], 02/06/2025 03:08:41 02/01/2002/06/2025 MATER NIT21 PLUS CORE pdf . Not Available [facility] ([facility]) [address] [facility] [facility], [place], [address], 02/06/2025 03:08:41 02/29/2002/28/2025 AFP, SERUM , OPEN SPINA BIFID A comment: Sandoval granger , Ph.D. , [facility] Direc tor Refer ences : Avail able Upon Reque st. Multi ples Of Media n Cutof fs For AFP [place] tions Singl eton 2.5 Black 2.8 IDD 2.0 Twins 4.5 Abbre viati on Defin ition s IDD - Insul in Dep Diabe crystal OSBR - Open Spina Bifid a Risk For furth er inqui brandee conta ct [facility] Víctor ics Servi florentino at [phone] [phone]. This test was devel oped and its perfo rmanc e etelvina cteri stics deter mined by [facility]. It has not been clear ed or appro brian by the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 screening 2437 34971 Z36.9 7985559 Gestation period, 11 weeks 54839778 Z3A.11 0110049 Nausea 899581698 R11.0 61207 [id number] Robyn Davies CNM [facility] [employer] [address] [facility] [place] [address] 02/28/2025 13:48:32 02/28/2025 14:27:47 Screening for malignant neoplasm of cervix 691340312 Z12.4 Z11.3 screening 2437 46071 Z36.9 care status 24 8085656 Z34.90 7224997117 Supervisio n of high risk with history of previous section done 3800024357 9106 O09.90 Z98.891 6241695964 Overweight in adulthood with body mass index of 25 or more but less than 30 681734431 E66.3 Z68.28 8093642549 Tachycardia 9963560 R00. 0 01/21/25 no meds Chronic depression 36191 0009 F34.1 01/21/25 no meds Anxiety 07751286 F41.9 01/21/25 no meds Nausea 983268615 R11.0 33779 Gestation period, 15 weeks 2808146 Z3A.15 0774892 [id number] Yris Warner DO [facility] [employer] [address] [facility] [place] [address] 04/01/2025 13:53:30 04/01/2025 15:54:49 Supervision of high risk with history of previous section done 3881777784 9106 O09.90 Z98.891 5551524175 Tachycardia 2254316 R00. 0 01/21/25 no meds Chronic depression 21836 0009 F34.1 01/21/25 no meds Anxiety 23148939 F41.9 01/21/25 no meds Gestation period, 20 weeks 88258768 Z3A.20 3908473 Body mass index 30+ - obesity 462610011 Z68.32 037819 screening 2437 56631 Z36.9 6166364 [id number] Angelina MD Es Gallagher [employer] [address] [facility] [place] [address] 04/29/2025 10:59:22 04/29/2025 12:31:31 Supervision of high risk with history of previous section done 8077551840 9106 O09.90 Z98.891 3296913428 Tachycardia 7638771 R00. 0 01/21/25 no meds; 04/29/2025: Symptoms worsening. Pulse 90 during exam ;advised cardiology evaluation Chronic depression 70162 0009 F34.1 01/21/25 no meds Anxiety 43927875 F41.9 01/21/25 no meds Gestation period, 24 weeks 172335536 Z3A.24 8260574 Obese class II 051552865 1 90325 E66.961 9918577 Requires i nfluenza virus vaccination 155931032 Z23 4704769 screening 2437 56749 Z36.9 4822017 Incomplete anatomy scan (needs outflow tracts) at 20 weeks; completed/ negative at 24 weeks today Health Concerns Section Related Observation LastModified by Organization Detai ls LastModified Time None Recorded Concern Status LastModified by Organization Details LastModified Time None Recorded Advance Directives Directive N: Payers Insurance Date Sequence Insurance Name Policy Number Policy Norton Covered Member ID Norton Member ID Guarantor Name 11/19/2024 SLIDING FEE SCHEDULE - DISCOUNT Marina Radha 04/29/2025 1 AETNA [facility] (MEDICAID [facility] Ileana Bill [id number] Marina Radha 04/29/2025 [place] [facility] [place] [place] [id number] [id number] Marina Radha 04/29/2025 1 BCBS-[place]: [employer] [employer] [facility] MEDICAID (HMO) [id number] Ileana Bill [id number] Marina Radha Notes Date Note Type Note Provider Name and Address Organization Details Recorded Time 01/21/2025 text/html Patient is a 19 year old who is self referred for confirmation of .A urine test was positive. This was performed at home but unsure of date. She did not have prior test(s) done that were negative.Her LMP was 11/11/2024. She is not sure of her last menstrual period. Since her LMP she claims she has been without any significant complaints. If she has complaints, she reports, . She denies vaginal bleeding.By her LMP, her initial EDC is 08/18/2025. This gives an EGA today of 101. This is second . She reports past (ies) as complicated.Since her LMP, she denies use of any substances such as tobacco, drugs, and alcohol. She claims her weight has increased by # pounds..Total time w/pt reviewing hx, updating chart, documentin minutes Marina Rapp APRN [address], [place], [place], [address] [place] [address], [place] [facility] 01/21/2025 21:44:00 01/31/2025 text/html ROS as noted in the HPI 10 wk OB visit Jeannie Lind MD [address], [place], [address] [place] [address], [place] [facility] 02/02/2025 07:34:56 02/28/2025 text/html ROS as noted in the HPI Robyn Davies CNM [address], [place], [address] [place] [address], [place] [facility] 02/28/2025 22:37:33 04/01/2025 text/html US, OB Yris Warner DO [address], [place], [address] [place] [address], [place] [facility] 04/01/2025 16:25:51 04/29/2025 text/html See Flow Sheet Angelina Gallagher MD [address], [place], [address] [place] [address], [place] [facility] 04/29/2025 13:15:41 OBGyn Episode Ob Episode Information Episode Created Date Number of Fetuses Patient Bloodtype Patient rh Status Prepregnancy Weight lbs Domestic Partner Domestic Partner Phone Father Name Appeals Analyst Status 02/06/20 21 1 O Negative 184 Flavio patterson unsure CLOSED Fetus Data First Name Last Name Admitted to NICU Weight (g) Sex Living Outcome Pediatric Complications Fetus ID Race Codes Race Delivery Type true F Full Term [id number] Problems Problem Notes Ultrasounds02/09/21 - 6w4d, e dd 10/01/21, fca seen, ys seen, bilateral ovaries seen, no cul de sac fluid seen, retro uterus//sg03/19/21 - U/S - abnormality in thoracic spine consistent with severe kyphoscoliosis vs Scoliosis, multiple hemivertebrae and 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 Recommends early anatomy scan with [facility] in 4 weeks. [facility] recommends MRI @ later date.05/10/21 [facility] scan-S=D, CHRISTY WNL. 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 The posterior fossa is difficult to visualize completely. There are also multiple hemivertebrae and findings consistent with kyphoscoliosis. Needs monthly scans for growth with close f/u of [employer] anatomy and possible MRI in 3rd trimester. Need Echo 24-28 wks- pt reports normal ECHO @ OV on 07/21.08/06/2021-US with [facility]; pt states will have C/S on -Routine OV; pt states [facility] called this office and was told she could have NST here and would start today; NST performed-nonreactive; BPP - 8/, christy - 20.00cm, female; after review of results, pt had mother on the phone who stated she will have NSTs once weekly @ starting on 08/20; she also states her platelets were 120+ when checked @ on 08/06 (records not yet available in chart).08/20/2021-NST @ ____ Problem Name Start Date End Date Resolution Snomed Code Not e Suspected abnormality affecting management of mother [id number] Po ssible spinal defect[ ] [facility] 03/19/21 in [place] screening 048182920 CF - NegativeAFP - [id number] -Negative Immunization due 657487878 [x] Flu-Declined[ ] COVID-COVID+04/22[x] Tdap @ 30 wk-given 07/21/21 Chronic depression 02/05/2021 623217474 Anxiety 02/05/2021 36651725 Maternal drug use 90905553 +T HCReviewed-Eugenio id use in [x] UDS @ 28 wks-neg Teenage 183084532 Urinary tract infection in 356168883 + E. Coli[x ] GABRIELLA @ 12 wks- Mixed jaime Blood group O Rh(D) negative 130887827 [x] RhoGAM @ 28 wks 07/13/21[x] Antibody screen-negative 07/13/21 Anemia 432896108 Ferrous Jose lfate QOD[ ] HGB @ 36 wks Thrombocytopenic disorder 079371094 Plat @ HX 324Plat @ 30 wks- 91[x] Aiden Plat with 1 hr gtt-81; referral to hematology and results sent to [facility]-pt scheduled @ [facility] on -gricelda garduno w/Dr. Hernandez; dx ITP d/t ; platelets were up to 134 on 08/05 and liver and kidney fx nml; will f/u there for rpt platelets in 4 wks (need before c/s);if <50, steroid tx recommended instead of platelet transfusion; (consult note in chart)08/06/21- visit; pt mother states platelets were 120+4/14-plt 131; to f/u with Dr. Hernandez in 2 months Kyphoscoliosis deformity of spine 080686921 Following by US with -See US report below. Santi Calculation Initial Santi Date Initial Exam Date Initial Exam Provider Initial Ultrasound Date Last Menstrual Period Date Ultra Sound Weeks Gestation 09/11/2021 02/05/2021 02/09/2021 11/15/2020 7 Eighteen To Twenty Week Santi Update Ultra Sound Date Fundal Height At Umbil Quickening Date Ultra Sound Latest Weeks Gestation Final Santi Confirmed By Final Santi Confirmed Date Final Santi Date Ultra Sound Latest Days Gestation 0 [email or web address] 02/09/2021 09/23/19 22 0 Pre- Flowsheet Flowsheet Date 02/05/2021 Parker Score Blood Edema Fundus Height Fundus Units Glucose Ketones Leukocytes Nitrite Labor Signs Protein Cervic Dilation Cervic Effacement Cervic Station neg none none negative none Negative neg Type Weight in lbs Pre/Post Dialysis Refused Weight 184.501629346129 BP Diastolic BP Location Tested BP Systolic BP Type 80 127 sitting Fetus Heart Rate Present Fetus Movement Comments Here for OB history. PN labs drawn. Desires CF screening//Ileana presents today for an OB Hx. She states this was not a planned , but she was not using any BC. She is complaining of nausea. Discussed. Reviewed plan of care. She would like to have genetic testing. No other Q/C. F/U 1 week for dating US and visit. Flowsheet Date 02/09/2021 Parker Score Blood Edema Fundus Height Fundus Units Glucose Ketones Leukocytes Nitrite Labor Signs Protein Cervic Dilation Cervic Effacement Cervic Station neg none none negative none Negative Cramping neg Type Weight in lbs Pre/Post Dialysis Refused With clothes 189.466028160365 BP Diastolic BP Location Tested BP Systolic BP Type 76 134 sitting Fetus Heart Rate Present A Present Fetus Movement A No Comments u/s, no vb, reports round li gament pain - KCDiscussed U/S with pt including SANTI change. Discussed OTC tx during . States she is having some nausea, but is able to keep food down. RTO in 4 weeks for OBPE. sg Flowsheet Date 02/26/2021 Parker Score Blood Edema Fundus Height Fundus Units Glucose Ketones Leukocytes Nitrite Labor Signs Protein Cervic Dilation Cervic Effacement Cervic Station neg none none negative none Negative neg Type Weight in lbs Pre/Post Dialysis Refused With clothes 188.683314510159 BP Diastolic BP Location Tested BP Systolic BP Type 62 112 sitting Fetus Heart Rate Present Fetus Movement A No Comments Pt presents for OBPE. Larry es obtained. RTO in 2 weeks for FTS with . Flowsheet Date 03/18/2021 Parker Score Blood Edema Fundus Height Fundus Units Glucose Ketones Leukocytes Nitrite Labor Signs Protein Cervic Dilation Cervic Effacement Cervic Station neg none 13 wks none negative none Negative none neg Type Weight in lbs Pre/Post Dialysis Refused Weight 199.059068997387 BP Diastolic BP Location Tested BP Systolic BP Type 72 110 sitting Fetus Heart Rate Present A Present Fetus Movement A No Comments No vb, lof or unusual d/c. S aw today for FTS. OBPE today. Wants cf testing, will draw today with FTS. Declines flu vaccine at this time. mdr//OBPE, GC/CT obtained. Reviewed labs. Reports that she may have had eaten THC but she is not smoking THC. Enc to avoid use in . She saw today for FTS. Dr. Coley suspects abnormality in the development of the spine. She is scheduled at tomorrow @ 10 am. [id number] obtained today. RH Flowsheet Date 04/05/2021 Parker Score Blood Edema Fundus Height Fundus Units Glucose Ketones Leukocytes Nitrite Labor Signs Protein Cervic Dilation Cervic Effacement Cervic Station Type Weight in lbs Pre/Post Dialysis Refused BP Diastolic BP Location Tested BP Systolic BP Type Fetus Heart Rate Present Fetus Movement Comments Flowsheet Date 04/14/2021 Parker Score Blood Edema Fundus Height Fundus Units Glucose Ketones Leukocytes Nitrite Labor Signs Protein Cervic Dilation Cervic Effacement Cervic Station neg none 17 wks none negative trace Negative none neg Type Weight in lbs Pre/Post Dialysis Refused Weight 198.021562190342 BP Diastolic BP Location Tested BP Systolic BP Type 76 114 sitting Fetus Heart Rate Present A Present Fetus Movement A No Comments No vb, lof or unusual d/c. H as not felt baby move as of yet. Feels nauseated today but has not eaten yet. mdr//No FM yet. She desires AFP today. She is asking questions about place of delivery and mode of delivery. She is very interested in having a C/S for delivery. Discussed that would help guide us in both areas. She is scheduled with on 05/07/21 then will see us the next wk. RH Flowsheet Date 04/23/2021 Parker Score Blood Edema Fundus Height Fundus Units Glucose Ketones Leukocytes Nitrite Labor Signs Protein Cervic Dilation Cervic Effacement Cervic Station neg none 18 cm none negative none Negative none neg Type Weight in lbs Pre/Post Dialysis Refused Weight 207.060415528962 BP Diastolic BP Location Tested BP Systolic BP Type 68 134 sitting Fetus Heart Rate Present A Present Fetus Movement A Yes Comments No vb, lof or unusual d/c. A t school yesterday, she had a dizzy spell, and a headache, she didnt take anything for her headache. Happened about 9 am yesterday. She had eaten breakfast cereal (ramya puffs) about 730 with some water. Today she has done ok, no dizzyness. Has had a slight headache today. mdr//Maybe feeling flutters. Had dizzy spell yesterday at school after Cocco Puffs. Discuss protein with each meal and snacks. She will have appt with on 05/10 and will see US on 05/12. Her BP was 150/70. She is unsure of the size of cuff that was used to check her BP. This morning her BP was 140/90. Enc BP BID and bring log to appt next wk. Flowsheet Date 05/12/2021 Parker Score Blood Edema Fundus Height Fundus Units Glucose Ketones Leukocytes Nitrite Labor Signs Protein Cervic Dilation Cervic Effacement Cervic Station neg none 21 wks none negative none Negative neg Type Weight in lbs Pre/Post Dialysis Refused Weight 212.79873813965 BP Diastolic BP Location Tested BP Systolic BP Type 68 120 Fetus Heart Rate Present A Present Fetus Movement A Yes Comments No vb, no lof, neg leuk, neg nits, no complaints today other than occasional cramps.//Feeling FM. She is only having cramping 0-2 times per day. She had keep track of her BP at home. There were normal. US with . They were reassured because they saw movement in the toes. F/U at 06/11/21. RTC 4 wks. Flowsheet Date 06/08/2021 Parker Score Blood Edema Fundus Height Fundus Units Glucose Ketones Leukocytes Nitrite Labor Signs Protein Cervic Dilation Cervic Effacement Cervic Station neg none negative none Negative neg Type Weight in lbs Pre/Post Dialysis Refused With clothes 221.707865880199 BP Diastolic BP Location Tested BP Systolic BP Type 82 124 sitting Fetus Heart Rate Present A Present Fetus Movement A Yes Comments no lof, no vb, no ctx, afm. pt says she occasionally has mild cramping. / Gian has f/u on Monday. States that shriner's should be there at delivery - plans to deliver at with . Showed stretches and suggested belly band for low back pain. RTO in 4 weeks. Flowsheet Date 07/13/2021 Parker Score Blood Edema Fundus Height Fundus Units Glucose Ketones Leukocytes Nitrite Labor Signs Protein Cervic Dilation Cervic Effacement Cervic Station neg none 30 cm none negative trace Negative none neg Type Weight in lbs Pre/Post Dialysis Refused Weight 229.523412227051 BP Diastolic BP Location Tested BP Systolic BP Type 78 122 sitting Fetus Heart Rate Present A Present Fetus Movement A Yes Comments No vb, lof or unusual d/c. L ast appt she says was cancelled by our office. Will need 1hr and her rhogam injection as well. mdr//Baby active. She did not get scheduled for 1 hr gtt. C/O getting hot in the morning then feels like her heart is beating fast and she becomes SOB. HR today is 103 @ rest. TSH/FreeT4, CBC, Antibody screen and give Rhogam. Schedule with Cardiology. She is seeing over the next 2 wks. She will be delivered @ via c/s. RTC Alisa for 1 hr gtt. Flowsheet Date 07/21/2021 Parker Score Blood Edema Fundus Height Fundus Units Glucose Ketones Leukocytes Nitrite Labor Signs Protein Cervic Dilation Cervic Effacement Cervic Station neg none 32 none negative none Negative none neg Type Weight in lbs Pre/Post Dialysis Refused With clothes 237.838414069686 BP Diastolic BP Location Tested BP Systolic BP Type 72 104 sitting Fetus Heart Rate Present A 158 Fetus Movement A Yes Comments 1 hr gtt/cbc, neg leuks, neg nits, no lof, no vb.JRMHere for 1hr; rpt UDS and CBC sent; feels well and denies concerns; States went to L&D with ctxs and BP was elevated and GASPAR present as well; she states (they) were not concerned and she was d/c'd home; BP is great today and she denies other s/s; UA neg for protein; she is reassured by this; she states she has an appt with on 08/06; she had normal ECHO; she agrees to tdap today; no other q/c; rto here 2 wks/dgt Flowsheet Date 08/05/2021 Parker Score Blood Edema Fundus Height Fundus Units Glucose Ketones Leukocytes Nitrite Labor Signs Protein Cervic Dilation Cervic Effacement Cervic Station neg none 34 cm none negative trace Negative none neg Type Weight in lbs Pre/Post Dialysis Refused Weight 241.45558509013 BP Diastolic BP Location Tested BP Systolic BP Type 72 110 sitting Fetus Heart Rate Present A Present Fetus Movement A Yes Comments No vb, lof or unusual d/c. S aw hematology at [facility] today. mdr//Baby active. She saw [facility] [employer] [facility] this AM. Obtained Blood to check kidney and liver. Will see 08/06/21 and discuss Plat and C/S. RTC 2 wks. RH Flowsheet Date 08/13/2021 Parker Score Blood Edema Fundus Height Fundus Units Glucose Ketones Leukocytes Nitrite Labor Signs Protein Cervic Dilation Cervic Effacement Cervic Station neg trace 34 cm none negative none Negative none neg Type Weight in lbs Pre/Post Dialysis Refused With clothes 244.273311167923 BP Diastolic BP Location Tested BP Systolic BP Type 80 126 sitting Fetus Heart Rate Present A 153 Fetus Movement A Yes Comments no lof, no vb, no ctx, no cr amps, afm/ jyoungHere for routine OV; fetus active; feels well; states had visit with on 08/06 and things were ok; states will be having C/S there on 09/15; when the visit was near complete, Ileana stated told her she would have an NST here today; She states they called a provider here to arrange for this, however, she is not scheduled; NST performed and nonreactive; BPP performed-12/27, nml fluid; d/w Dr Lind; it is recommended pt have rpt CBC and start twice weekly NSTs; when I reviewed this plan with the patient, she had her mother on the phone who stated she will be having NST only once weekly starting 08/20 @ ; she states when she made Ileana's appt here today, she told the scheduling staff she needed an NST with her visit today, however, it wasn't scheduled appropriately; She also states she had CBC @ just last week and her platelets were up to a little over 120 ; I do not have the visit notes from 08/06 for review; She was not pleased that Ileana's appointment took longer as she expected as her route driver coin machines had another commitment; Ileana had no further concerns and will rto here on 08/19 as scheduled/dgt Menstrual History Last Menstrual Date Menses Monthly On Bcp Conception Prior Menses Frequency Hcg Plus Date Menarche Onset Age 0611/15/2020 true false 10 Genetic Screening And Infection History Question Response Note Patient's Age Will Be 35 Yea rs Or Older At Estimated Date of Delivery false Thalassemia (Malaysian, Zimbabwean, Mediterranean, Or Background): MCV < 80 false Neural Tube Defect (Meningom yelocele, Spina Bifida, Or Anencephaly) false Congenital Heart Defect false Down Syndrome false Surinder-Sachs (eg, Yarsani, Cajun, Finnish-[place]) f alse Gigi Disease false Sickle Cell Disease Or Trait () false Hemophilia Or Other Blood Disorders false Muscular Dystrophy false Cystic Fibrosis false [place]'s Chorea false Mental Retardation/Autism true FOB's half-brother If Yes, Was Person Tested For Fragile X? false Other Inherited Genetic Or Chromosomal Disorder false Maternal Metabolic Disorder (eg, Type 1 Diabetes , PKU) false Patient Or Baby's Father Had A Child With Defects Not Listed Above false Recurrent Loss, Or A Stillbirth false Medications (including Suppl ements, Vitamins, Herbs, OTC Drugs), Illicit/Recreational Drugs, Alcohol false If Yes, Agent(s) And Strength/Dosage false Any Other Genetic History false Live With Someone With TB Or Exposed To TB false Patient Or Partner Has History Of Genital Herpes false Rash Or Viral Illness Since Last Menstrual Perio d false History Of STD, Gonorrhea, Chlamydia, HPV, Syphi lis false Other Infection History false History of HIV false History of Hepatitis false Prior GBS-infected child false Recent Travel Outside of Country false Plans and Education First Trimester Discussed Date Discussion Item Discussion Note Discuss ed By 02/05/2021 Desire for Unplanned - was using condoms nfossitt 02/05/2021 Alcohol nfossitt 02/05/2021 Illicit/recreational drugs no n fossitt 02/05/2021 Nutrition nfossitt 02/05/2021 Weight gain counseling nfoss itt 02/05/2021 Intimate Partner Violence no nf ossitt 02/05/2021 Unstable Housing no nfossitt 02/05/2021 Use of any medicatio ns (including supplements, vitamins, herbs, or OTC drugs) Flintstones nfossitt 02/05/2021 Avoidance of saunas or hot tubs nfossitt 02/05/2021 Indications for ultrasonography nfossitt 02/05/2021 Comminucation Barriers nfoss itt 02/05/2021 Anticipated course o f care nfossitt 02/05/2021 Toxoplasmosis precau tions (cats/raw meat) No house cats nfossitt 02/05/2021 Sexual activity nfossitt 02/05/2021 Exercise nfossitt 02/05/2021 Tobacco/smoking cess ation counseling (ask, advise, assess, assist, and arrange) no nfossitt 02/05/2021 Barriers to Care no nfoss02/05/2021 Environmental/work hazards No n foss02/05/2021 Depression/Anxiety ( should be performed at least once during period) Anxiety - no meds 02/05/2021 WIC/Hands Referral 02/05/2021 Nutrition counseling ; special diet; dietary precautions (mercury, listeriosis) oss02/05/2021 Dental Care / Refer to Dentist 02/05/2021 Seat belt use 02/05/2021 Childbirth classes/h ospital facilities desires 02/05/2021 breast 02/05/2021 Screening for aneuploidy nfo ssitt Second Trimester Discussed Date Discussion Item Discussion Note Discuss ed By Reproductive Life Pl anning & Contraception Undecided Third Trimester Discussed Date Discussion Item Discussion Note Discuss ed By Pain Management Plans Epidural Circumcision Preference Yes Delivery Information Delivery Date Delivery Type Labor Anesthesia Weeks Gestation Incision Type Labor Labor Length Hrs Delivered By Post Complications Tubal Sterilization Discharge Date Comments 2 None [facility]-Sp [facility] 39 Low Transvers e false None 09/18/2021 Primary c/s at due to kyphoscol iosis, and vetriculo megaly LST incsion at [facility] Discharge Information Feeding Method Contraceptive Method Maternal HG B and HCT Levels Ob Episode Information Episode Created Date Number of Fetuses Patient Bloodtype Patient rh Status Prepregnancy Weight lbs Domestic Partner Domestic Partner Phone Father Name Appeals Analyst Status 01/22/20 25 1 O Negative 190 Jesus , 25 [facility] [place] OPEN Fetus Data First Name Last Name Admitted to NICU Weight (g) Sex Living Outcome Pediatric Complications Fetus ID Race Codes Race Delivery Type [id number] Problems Problem Notes Lives- [place]- [employer] bistrobreast and bottle/[facility] [id number]: Primary c/s at for kyphoscoliosis and vertriculomegaly, 39wks, LST incision-->daughter is well- has not required surgery yet but working with getting back brace. Ultrasound:01/31/25 Dating Scan-Viable IUP 10+6, c/w LMP. Keep EDC 08/18/2610: Incomplete, normal, vertex, posterior placenta, female, repeat at 24 weeks, CL > 5cm, no funneling/SMO12/9/25 :[ x] fu for outflow tracts-Completed. vtx, /lsPatient stating now she truly had no idea about LMP, Gave them a guess -With this amended history I would use ultrasound dating (01/31/25--->10+6-->08/23/25) as formal SANTI and chart is updated today/LS Problem Name Start Date End Date Resolution Snomed Code Not e Supervision of high risk with history of previous section done 01/21/2025 [id number] Pr C S LST for indications- desires schedled repeat ;[ ]pearl maker surg referral for repeat c/s screening 01/21/2025 [id number] Mat21- 01/21/25 Negative; AFP- 02/28/2025 Negative; CF- negative 2020 Active immunization 01/21/2025 [id number] Covid- declined 01/21/25; [ ]Tdap- @30wks; [x ] Flu-Given 04-29-2025 Overweight in adulthood with body mass index of 25 or more but less than 30 01/21/2025 [id number] BMI: 2 8.1starting wgt: 164OlsB9v: 5.1 Santi Calculation Initial Santi Date Initial [...] in lbs Pre/Post Dialysis Refused With clothes 190.131572431178 BP Diastolic BP Location Tested BP Systolic [...] Type Weight in lbs Pre/Post Dialysis Refused 192.541231194369 BP Diastolic BP Location Tested BP Systolic BP Type 80 118 sitting Fetus Heart Rate Present A Present Fetus Movement A No Comments no vb, no lof, no complaints voiced today.//BT//Here or dating scan. US showed 10+6, c/w LMP. Keep EDC . C/O nasuea-Discussed OTC options. Desires [id number] today. Scheduled for OBPE 02/28/25. RH Flowsheet Date 02/28/2025 Parker Score Blood Edema Fundus Height Fundus Units Glucose Ketones Leukocytes Nitrite Labor Signs Protein Cervic Dilation Cervic Effacement Cervic Station neg none 15 wks none negative none Negative none neg Type Weight in lbs Pre/Post Dialysis Refused Weight 204.110206094210 BP Diastolic BP Location Tested BP Systolic [...] in lbs Pre/Post Dialysis Refused With clothes 218.545579458673 BP Diastolic BP Location Tested BP Systolic [...] in lbs Pre/Post Dialysis Refused With clothes 240.877017464503 BP Diastolic BP Location Tested BP Systolic [...] O2 sat 100.Will refer her onto [facility] for up-to-date testing and consideration for possible [...] At Estimated Date of Delivery false Thalassemia (Malaysian, Zimbabwean, Mediterranean, Or Background): MCV < 80 false Neural Tube Defect (Meningom yelocele, Spina Bifida, Or Anencephaly) false Congenital Heart Defect false Down Syndrome false Surinder-Sachs (eg, Yarsani, Cajun, Finnish-[place]) f alse Gigi Disease false Sickle Cell [...] unplanned 01/21/2025 Alcohol 01/21/2025 Illicit/recreational drugs a [facility]24 01/21/2025 Nutrition aduke201/21/2025 Weight gain counseling 15-25# [facility] 24 01/21/2025 Intimate Partner Violence ad 01/21/2025 Unstable Housing 01/21/2025 Use of any medicatio ns (including supplements, vitamins, herbs, or OTC drugs) discussed 01/21/2025 Avoidance of saunas or hot tubs 01/21/2025 Indications for ultrasonography ad01/21/2025 Comminucation Barriers [facility]uke 01/21/2025 Anticipated course o f care ad01/21/2025 Toxoplasmosis precau tions (cats/raw meat) 01/21/2025 Sexual activity 01/21/2025 Exercise 01/21/2025 Tobacco/smoking cess ation counseling (ask, advise, assess, assist, and arrange) non smoker, no tobacco ad01/21/2025 Barriers to Care 01/21/2025 Environmental/work hazards a duke01/21/2025 Depression/Anxiety ( should be performed at least once during period) chronic but no meds 01/21/2025 WIC/Hands Referral already has 01/21/2025 Nutrition counseling ; special diet; dietary precautions (mercury, listeriosis) 01/21/2025 Dental Care / Refer to Dentist none 01/21/2025 Seat belt use ad01/21/2025 Childbirth classes/h ospital facilities 01/21/2025 01/21/2025 Screening [...]
--- OUTSIDE RECORDS SUMMARY | 2025-05-01 01:22 | XMS_ITS | Continuity of Care Document ---
Author Organization [facility] Luis F Perez [facility]IST[facility] Address [address] [place] [address] [place] [address] Assessment No assessment recorded. Plan of Treatment Reminders Order Date Submit Date Provider Last Modified By Organization Details Last Modified Time Details Appointments OB 1hr Glucose 2025 08:40A M Mildred raman, DO Not available Not available Not available Lab urinalysi s, dipstick 2024 025 rhogge [employer], [address] [place] [address] , [place], [address], 02/28/2025 16:48:03 afp (alpha-fe toprotein ) panel, maternal screen, serum 2024 025 [facility], [address], [address], [place], [address], 03/03/2025 20:09:53 cytology report, thin prep, smear or scraping, cervical or vaginal 2024 025 [facility], [address], [address], [place], [address], 03/06/2025 20:09:46 Referral None recorded. Procedures None recorded. Surgeries None recorded. Imaging None recorded. Medication Orders None recorded. Patient TargetsNo targets recorded. Patient Instructions Encounter Date Encounter Id Patient Instructions Last Modified By Organization Details Last Modified Time 02/28/2025 [id number] body mass index: care instructions rhogge Not available 02/28/2025 16:48:03 learning about healthy weight rhogge Not available 02/28/2025 16:48:03 nausea and vomiting: care instructions rhogge Not available 02/28/2025 16:48:03 high-risk : care instructions rhogge Not available 02/28/2025 16:48:03 Reason for Referral None Reported. Results Created Date Observation Date Name Description Value Unit Range Abnormal Flag Note LastModifiedBy Organization Detail LastModifiedTime 01/22/2001/22/2025 PREGN TONY, INITI AL SCREE N HBsAg screen Negati ve negati ve Not Available [facility] ([facility]) [address] [facility], [place], [address], 01/23/2025 14:12:25 01/22/2001/22/2025 PREGN TONY, INITI AL SCREE N HCV Ab Non Reacti ve non reacti ve Not Available [facility] ([facility]) [address] [facility], [place], [address], 01/23/2025 14:12:25 01/22/20 25 01/22/2025 PREGN TONY, INITI AL SCREE N interpretati on: Commen t Not infec phill with HCV unles s early or acute infec tion is suspe cted (whic h may be delay ed in an immun ocomp romis ed indiv idual ), or other evide nce exist s to indic ate HCV infec tion. Not Available [facility] ([facility]) [address] [facility], [place], [address], 01/23/2025 14:12:25 01/22/2001/22/2025 PREGN TONY, INITI AL SCREE N RPR Non Reacti ve non reacti ve Not Available [facility] ([facility]) [address] [facility], [place], [address], 01/23/2025 14:12:25 01/22/2001/22/2025 PREGN TONY, INITI AL SCREE N rubella antibodies, IgG 1.09 index immune >0.99 Non-i mmune <0.90 Equiv ocal 0.90 - 0.99 Immun e >0.99 Not Available [facility] ([facility]) [address] [facility], [place], [address], 01/23/2025 14:12:25 01/22/2001/22/2025 PREGN TONY, INITI AL SCREE N ABO grouping O Not Available [facility] ([facility]) [address] [facility], [place], [address], 01/23/2025 14:12:25 01/22/2001/22/2025 PREGN TONY, INITI AL SCREE N Rh factor Negati ve Pleas e note: Prior recor ds for this patie nt's ABO / Rh type are not avail able for addit ional verif icati on. Not Available [facility] ([facility]) [address] [facility], [place], [address], 01/23/2025 14:12:25 01/22/20 25 01/22/2025 PREGN TONY, INITI AL SCREE N antibody screen Negati ve negati ve Not Available [facility] ([facility]) [address] [facility], [place], [address], 01/23/2025 14:12:25 01/22/2001/22/2025 PREGN TONY, INITI AL SCREE N HIV Ab/P24 Ag screen Non Reacti ve non reacti ve HIV-1 /HIV- 2 antib odies and HIV-1 p24 antig en were NOT detec phill. There is no labor atory evide nce of HIV infec tion. HIV Negat eddie Not Available [facility] ([facility]) [address] [facility], [place], [address], 01/23/2025 14:12:25 01/22/2001/22/2025 PREGN TONY, INITI AL SCREE N WBC 8.6 x10e3 /uL 3.4-10 .8 normal Not Available [facility] ([facility]) [address] [facility], [place], [address], 01/23/2025 14:12:25 01/22/2001/22/2025 PREGN TONY, INITI AL SCREE N RBC 4.55 x10e6 /uL 3.77-5 .28 normal Not Available [facility] ([facility]) [address] [place], [address], 01/23/2025 14:12:25 01/22/2001/22/2025 PREGN TONY, INITI AL SCREE N hemoglobin 13.4 g/dL 11.1-1 5.9 normal Not Available [facility] ([facility]) [address] [place], [address], 01/23/2025 14:12:25 01/22/2001/22/2025 PREGN TONY, INITI AL SCREE N hematocrit 40.5 % 34.0-4 6.6 normal Not Available [facility] ([facility]) [address] [place], [address], 01/23/2025 14:12:25 01/22/2001/22/2025 PREGN TONY, INITI AL SCREE N MCV 89 fL 79-97 normal Not Available [facility] ([facility]) [address] [place], [address], 01/23/2025 14:12:25 01/22/2001/22/2025 PREGN TONY, INITI AL SCREE N MCH 29.5 pg 26.6-3 3.0 normal Not Available [facility] ([facility]) [address] [place], [address], 01/23/2025 14:12:25 01/22/2001/22/2025 PREGN TONY, INITI AL SCREE N MCHC 33.1 g/dL 31.5-3 5.7 normal Not Available [facility] ([facility]) [address] [place], [address], 01/23/2025 14:12:25 01/22/20 25 01/22/2025 PREGN TONY, INITI AL SCREE N RDW 12.1 % 11.7-1 5.4 Not Available [facility] ([facility]) [address] [facility], [place], [address], 01/23/2025 14:12:25 01/22/20 25 01/22/2025 PREGN TONY, INITI AL SCREE N platelets 273 x10e3 /uL 150-45 0 normal Not Available [facility] ([facility]) [address] [facility], [place], [address], 01/23/2025 14:12:25 01/22/20 25 01/22/2025 PREGN TONY, INITI AL SCREE N neutrophils 76 % not estab. normal Not Available [facility] ([facility]) [address] [facility], [place], [address], 01/23/2025 14:12:25 01/22/20 25 01/22/2025 PREGN TONY, INITI AL SCREE N lymphs 16 % not estab. normal Not Available [facility] ([facility]) [address] [facility], [place], [address], 01/23/2025 14:12:25 01/22/20 25 01/22/2025 PREGN TONY, INITI AL SCREE N monocytes 7 % not estab. normal Not Available [facility] ([facility]) [address] [facility], [place], [address], 01/23/2025 14:12:25 01/22/20 25 01/22/2025 PREGN TONY, INITI AL SCREE N eos 0 % not estab. normal Not Available [facility] ([facility]) [address] [facility], [place], [address], 01/23/2025 14:12:25 01/22/20 25 01/22/2025 PREGN TONY, INITI AL SCREE N basos 1 % not estab. normal Not Available [facility] ([facility]) [address] [place], [address], 01/23/2025 14:12:25 01/22/2001/22/2025 PREGN TONY, INITI AL SCREE N immature cells STEWARD/STEWARDESS LOUNGE Not Available [facility] ([facility]) [address] [facility], [place], [address], 01/23/2025 14:12:25 01/22/20 25 01/22/2025 PREGN TONY, INITI AL SCREE N neutrophils (absolute) 6.5 x10e3 /uL 1.4-7. 0 normal Not Available [facility] ([facility]) [address] [facility], [place], [address], 01/23/2025 14:12:25 01/22/20 25 01/22/2025 PREGN TONY, INITI AL SCREE N lymphs (absolute) 1.3 x10e3 /uL 0.7-3. 1 normal Not Available [facility] ([facility]) [address] [place], [address], 01/23/2025 14:12:25 01/22/20 25 01/22/2025 PREGN TONY, INITI AL SCREE N monocytes(ab solute) 0.6 x10e3 /uL 0.1-0. 9 normal Not Available [facility] ([facility]) [address] [place], [address], 01/23/2025 14:12:25 01/22/20 25 01/22/2025 PREGN TOYN, INITI AL SCREE N eos (absolute) 0.0 x10e3 /uL 0.0-0. 4 normal Not Available [facility] ([facility]) [address] [place], [address], 01/23/2025 14:12:25 01/22/20 25 01/22/2025 PREGN TONY, INITI AL SCREE N baso (absolute) 0.1 x10e3 /uL 0.0-0. 2 normal Not Available [facility] ([facility]) [address] [facility], [place], [address], 01/23/2025 14:12:25 01/22/2001/22/2025 PREGN TONY, INITI AL SCREE N immature granulocytes 0 % not estab. Not Available [facility] ([facility]) [address] [facility], [place], [address], 01/23/2025 14:12:25 01/22/2001/22/2025 PREGN TNOY, INITI AL SCREE N immature grans (abs) 0.0 x10e3 /uL 0.0-0. 1 Not Available [facility] ([facility]) [address] [facility], [place], [address], 01/23/2025 14:12:25 01/22/2001/22/2025 PREGN TONY, INITI AL SCREE N NRBC STEWARD/STEWARDESS LOUNGE Not Available [facility] ([facility]) [address] [facility], [place], [address], 01/23/2025 14:12:25 01/22/2001/22/2025 PREGN TONY, INITI AL SCREE N hematology comments: STEWARD/STEWARDESS LOUNGE Not Available [facility] ([facility]) [address] [facility], [place], [address], 01/23/2025 14:12:25 01/22/2001/22/2025 PREGN TONY, INITI AL SCREE N specific gravity 1.023 1.005- 1.030 normal Not Available [facility] ([facility]) [address] [facility], [place], [address], 01/23/2025 14:12:25 01/22/2001/22/2025 PREGN TONY, INITI AL SCREE N pH 6.0 5.0-7. 5 normal Not Available [facility] ([facility]) [address] [facility], [place], [address], 01/23/2025 14:12:25 01/22/20 25 01/22/2025 PREGN TONY, INITI AL SCREE N urine-color Yellow yellow Not Available [facility] ([facility]) [address] [place], [address], 01/23/2025 14:12:25 01/22/20 25 01/22/2025 PREGN TONY, INITI AL SCREE N appearance Cloudy clear abnormal Not Available [facility] ([facility]) [address] [place], [address], 01/23/2025 14:12:25 01/22/20 25 01/22/2025 PREGN TONY, INITI AL SCREE N WBC esterase Negati ve negati ve Not Available [facility] ([facility]) [address] [place], [address], 01/23/2025 14:12:25 01/22/20 25 01/22/2025 PREGN TONY, INITI AL SCREE N protein Negati ve negati ve/tra ce Not Available [facility] ([facility]) [address] [place], [address], 01/23/2025 14:12:25 01/22/20 25 01/22/2025 PREGN TONY, INITI AL SCREE N glucose Negati ve negati ve Not Available [facility] ([facility]) [address] [place], [address], 01/23/2025 14:12:25 01/22/20 25 01/22/2025 PREGN TONY, INITI AL SCREE N ketones Negati ve negati ve Not Available [facility] ([facility]) [address] [place], [address], 01/23/2025 14:12:25 01/22/20 25 01/22/2025 PREGN TONY, INITI AL SCREE N occult blood Negati ve negati ve Not Available [facility] ([facility]) [address] [place], [address], 01/23/2025 14:12:25 01/22/20 25 01/22/2025 PREGN TONY, INITI AL SCREE N bilirubin Negati ve negati ve Not Available [facility] ([facility]) [address] [facility], [place], [address], 01/23/2025 14:12:25 01/22/20 25 01/22/2025 PREGN TONY, INITI AL SCREE N urobilinogen ,semi-qn 0.2 mg/dL 0.2-1. 0 normal Not Available [facility] ([facility]) [address] [place], [address], 01/23/2025 14:12:25 01/22/20 25 01/22/2025 PREGN TONY, INITI AL SCREE N nitrite, urine Negati ve negati ve Not Available [facility] ([facility]) [address] [facility], [place], [address], 01/23/2025 14:12:25 01/22/20 25 01/22/2025 PREGN TONY, INITI AL SCREE N microscopic examination Commen t Micro scopi c follo ws if indic ated. Not Available [facility] ([facility]) [address] [place], [address], 01/23/2025 14:12:25 01/22/20 25 01/22/2025 PREGN TONY, INITI AL SCREE N microscopic examination See below: Micro scopi c was indic ated and was perfo rmed. Not Available [facility] ([facility]) [address] [place], [address], 01/23/2025 14:12:25 01/22/20 25 01/22/2025 PREGN TONY, INITI AL SCREE N WBC 0-5 /hpf 0 - 5 Not Available [facility] ([facility]) [address] [place], [address], 01/23/2025 14:12:25 01/22/20 25 01/22/2025 PREGN TONY, INITI AL SCREE N RBC 0-2 /hpf 0 - 2 Not Available [facility] ([facility]) [address] [facility], [place], [address], 01/23/2025 14:12:25 01/22/20 25 01/22/2025 PREGN TONY, INITI AL SCREE N epithelial cells (non renal) >10 /hpf 0 - 10 abnormal Not Available [facility] ([facility]) [address] [facility], [place], [address], 01/23/2025 14:12:25 01/22/20 25 01/22/2025 PREGN TONY, INITI AL SCREE N epithelial cells (renal) STEWARD/STEWARDESS LOUNGE Not Available [facility] ([facility]) [address] [facility], [place], [address], 01/23/2025 14:12:25 01/22/20 25 01/22/2025 PREGN TONY, INITI AL SCREE N casts None seen /lpf none seen Not Available [facility] ([facility]) [address] [facility], [place], [address], 01/23/2025 14:12:25 01/22/20 25 01/22/2025 PREGN TONY, INITI AL SCREE N cast type STEWARD/STEWARDESS LOUNGE Not Available [facility] ([facility]) [address] [place], [address], 01/23/2025 14:12:25 01/22/20 25 01/22/2025 PREGN TONY, INITI AL SCREE N crystals STEWARD/STEWARDESS LOUNGE Not Available [facility] ([facility]) [address] [place], [address], 01/23/2025 14:12:25 01/22/20 25 01/22/2025 PREGN TONY, INITI AL SCREE N crystal type STEWARD/STEWARDESS LOUNGE Not Available [facility] ([facility]) [address] [facility], [place], [address], 01/23/2025 14:12:25 01/22/20 25 01/22/2025 PREGN TONY, INITI AL SCREE N mucus threads STEWARD/STEWARDESS LOUNGE Not Available [facility] ([facility]) [address] [facility], [place], [address], 01/23/2025 14:12:25 01/22/20 25 01/22/2025 PREGN TONY, INITI AL SCREE N bacteria Few none seen/f ew Not Available [facility] ([facility]) [address] [facility], [place], [address], 01/23/2025 14:12:25 01/22/20 25 01/22/2025 PREGN TONY, INITI AL SCREE N yeast STEWARD/STEWARDESS LOUNGE Not Available [facility] ([facility]) [address] [facility], [place], [address], 01/23/2025 14:12:25 01/22/20 25 01/22/2025 PREGN TONY, INITI AL SCREE N trichomonas STEWARD/STEWARDESS LOUNGE Not Available [facility] ([facility]) [address] [facility], [place], [address], 01/23/2025 14:12:25 01/22/20 25 01/22/2025 PREGN TONY, INITI AL SCREE N comment STEWARD/STEWARDESS LOUNGE Not Available [facility] ([facility]) [address] [facility], [place], [address], 01/23/2025 14:12:25 01/22/20 25 01/23/2025 PREGN TONY, INITI AL SCREE N chlamydia trachomatis, PEPE Negati ve negati ve Not Available [facility] ([facility]) [address] [facility], [place], [address], 01/23/2025 14:12:25 01/22/20 25 01/23/2025 PREGN TONY, INITI AL SCREE N neisseria gonorrhoeae, PEPE Negati ve negati ve Not Available [facility] ([facility]) [address] [facility], [place], [address], 01/23/2025 14:12:25 01/22/2001/23/2025 PREGN TONY, INITI AL SCREE N urine culture,pren atal, w/gbs Final report Not Available [facility] ([facility]) [address] [facility], [place], [address], 01/23/2025 14:12:25 01/22/2001/23/2025 PREGN TONY, INITI AL SCREE N result 1 No growth Not Available [facility] ([facility]) [address] [facility], [place], [address], 01/23/2025 14:12:25 01/22/2001/22/2025 HEMOG LOBIN A1C hemoglobin A1C 5.1 % 4.8-5. 6 normal Predi abete s: 5.7 - 6.4 Diabe crystal: >6.4 Glyce carola contr ol for adult s with diabe crystal: <7.0 Not Available [facility] ([facility]) [address] [facility], [place], [address], 01/23/2025 14:12:25 01/22/2001/26/2025 COMPL IANCE DRUG RON [...] mao consu ltati on, pleas e call [phone]. ===== ===== ===== ===== ===== ===== ===== ===== ===== ===== ===== ===== ===== === Not Available [facility] ([facility]) [address] [facility], [place], [address], 01/26/2025 10:35:57 01/22/20 25 01/26/2025 COMPL IANCE DRUG RON SIS, UR pdf . Not Available [facility] ([facility]) [address] [facility], [place], [address], 01/26/2025 10:35:57 01/22/20 25 01/21/2025 pregn tony test, urine HCG positi ve Not Available [employer] [address] [facility] , [place], [address], 01/21/2025 08:32:47 02/01/2002/06/2025 MATER NIT21 PLUS CORE gestation Single ton Not Available [facility] ([facility]) [address] [facility], [place], [address], 02/06/2025 03:08:41 02/01/2002/06/2025 MATER NIT21 PLUS CORE fraction 16% Not Available [facility] ([facility]) [address] [facility], [place], [address], 02/06/2025 03:08:41 02/01/2002/06/2025 MATER NIT21 PLUS CORE gestational age > or = 9W: Yes Not Available [facility] ([facility]) [address] [facility], [place], [address], 02/06/2025 03:08:41 02/01/2002/06/2025 MATER NIT21 PLUS CORE test result Negati ve Not Available [facility] ([facility]) [address] [facility], [place], [address], 02/06/2025 03:08:41 02/01/2002/06/2025 MATER NIT21 PLUS CORE labor relations analyst comments Sandoval Mcneil speci men showe d an expec phill repre senta tion of chrom osome 21, 18 and 13 mater ial. Clini mao corre latio n is doris patricia. Not Available [facility] ([facility]) [address] [facility], [place], [address], 02/06/2025 03:08:41 02/01/2002/06/2025 MATER NIT21 PLUS CORE approved by Sandoval munson MD, PhD, [facility] tor, [place] nom Labor atori es Not Available [facility] ([facility]) [address] [place], [address], 02/06/2025 03:08:41 02/01/2002/06/2025 MATER NIT21 PLUS CORE trisomy 21 (down syndrome) Negati ve Not Available [facility] ([facility]) [address] [place], [address], 02/06/2025 03:08:41 02/01/2002/06/2025 MATER NIT21 PLUS CORE trisomy 18 (burt syndrome) Negati ve Not Available [facility] ([facility]) [address] [place], [address], 02/06/2025 03:08:41 02/01/2002/06/2025 MATER NIT21 PLUS CORE trisomy 13 (patau syndrome) Negati ve Not Available [facility] ([facility]) [address] [place], [address], 02/06/2025 03:08:41 02/01/2002/06/2025 MATER NIT21 PLUS CORE sex Commen t Consi stent with Femal e Not Available [facility] ([facility]) [address] [place], [address], 02/06/2025 03:08:41 02/01/2002/06/2025 MATER NIT21 PLUS CORE negative predictive value Note The Negat eddie Predi ctive Value (NPV) for triso my 21, 18, and 13 is great er than 99%. The NPV for SCA and ESS canno t be calcu lated as SCA and ESS are only repor phill when an abnor malit y is detec phill. Not Available [facility] ([facility]) [address] [place], [address], 02/06/2025 03:08:41 02/01/2002/06/2025 MATER NIT21 PLUS CORE positive predictive value N/A Not Available [facility] ([facility]) [address] [place], [address], 02/06/2025 03:08:41 02/01/2002/06/2025 MATER NIT21 PLUS CORE [...] yet been valid ated. Not Available [facility] ([facility]) [address] [facility], [place], [address], 02/06/2025 03:08:41 02/01/2002/06/2025 MATER NIT21 PLUS CORE test method Commen t Circu latin g cell- free DNA was purif ied from the plasm a compo nent of mater nal blood . The extra cted DNA was then conve rted into a PLDT DNA valentín ry for aneup loidy ron [...] s 16 and 22. Not Available [facility] ([facility]) [address] [facility], [place], [address], 02/06/2025 03:08:41 02/01/2002/06/2025 MATER NIT21 PLUS CORE performance Commen t The perfo rmanc e etelvina cteri stics of the Mater niT(R ) 21 PLUS labor atory -deve loped test (LDT) have been deter mined in a clini mao valid ation study with pregn ant women at incre ased risk for chrom osoma l aneup loidy .[1-4 ] Not Available [facility] ([facility]) [address] [facility], [place], [address], 02/06/2025 03:08:41 02/01/20 25 02/06/2025 MATER NIT21 [...] ase nstd3 7 [http s://w booker.nc bi.nl .[facility] .gov/ dbvar /stud ies/n std37 / [...] eton gesta tion only. Not Available [facility] ([facility]) [address] [facility], [place], [address], 02/06/2025 03:08:41 02/01/20 25 02/06/2025 MATER NIT21 [...] and Fragm in(R) ). Not Available [facility] ([facility]) [address] [facility], [place], [address], 02/06/2025 03:08:41 02/01/20 25 02/06/2025 MATER NIT21 PLUS CORE note Commjason t [facility]. is a subsi diary of Labor atory Corpo ratio n of [employer] samuel Harperi ngs, using the brand [employer]. This test was devel oped and its perfo rmanc e etelvina cteri stics deter mined by [employer]. It has not been clear ed or appro brian by the Food and Drug Admin istra tion. This labor atory is certi fied under the Clini mao Labor atory Impro vemen t Amend ments (CLIA ) as quali fied to perfo rm high compl exity clini mao labor atory testi ng and accre dited by the Colle ge of [employer] can Patho logis ts (CAP) . Not Available [facility] ([facility]) [address] [facility], [place], [address], 02/06/2025 03:08:41 02/01/20 25 02/06/2025 MATER NIT21 PLUS CORE references Sandoval garduno 1. Lourdes CHAUDHARI, et al. Víctor Med. 2012; 14(3) :296- 305. 2. Terry ELI, et al. Prena t Diag. 2013; 33(6) :591- 597. 3. Landeros C, et al. Clin Chem. 2015 Aug;6 1(4): 608-6 16. 4. Lourdes CHAUDHARI, et al. Víctor Med. 2011; 13(11 ):913 -920. 5. ACOG/ SMFM Pract ice Bulle tin No. 226, Feb 2020. Not Available [facility] ([facility]) [address] [facility], [place], [address], 02/06/2025 03:08:41 02/01/20 25 02/06/2025 MATER NIT21 PLUS CORE pdf . Not Available [facility] ([facility]) [address] [facility], [place], [address], 02/06/2025 03:08:41 02/29/20 25 02/28/2025 AFP, SERUM , OPEN SPINA BIFID A comment: Sandoval granger , Ph.D. , [facility] Dire tor Refer ences : Avail able Upon Reque st. Multi ples Of Media n Cutof fs For AFP Randlett tions Singl eton 2.5 Black 2.8 IDD 2.0 Twins 4.5 Abbre viati on Defin ition s IDD - Insul in Dep Diabe crystal OSBR - Open Spina Bifid a Risk For furth er inqui brandee conta ct [facility] Víctor ics Servi florentino at [phone] [phone]. This test was devel oped and its perfo rmanc e etelvina cteri stics deter mined by [facility]. It has not been clear ed or appro brian by the Food and Drug Admin istra tion. Not Available [facility] [facility]) [address] [facility], [place], [address], 03/03/2025 20:09:53 02/29/2003/03/2025 AFP, SERUM , OPEN SPINA BIFID A results Report Not Available [facility] ([facility]) [address] [facility], [place], [address], 03/03/2025 20:09:53 02/29/2003/03/2025 AFP, SERUM , OPEN SPINA BIFID A test results: *Scree n Negati ve* Not Available [facility] ([facility]) [address] [facility], [place], [address], 03/03/2025 20:09:53 02/29/2003/03/2025 AFP, SERUM , OPEN SPINA BIFID A gest. age on collection date 15.6 weeks Not Available [facility] ([facility]) [address] [facility], [place], [address], 03/03/2025 20:09:53 02/29/2003/03/2025 AFP, SERUM , OPEN SPINA BIFID A gestat. age based on LMP 11/11 Recal culat ions are not recom saul d when gesta aneesh l datin g by LMP and ultra sound are withi n 10 days. Not Available [facility] ([facility]) [address] [facility], [place], [address], 03/03/2025 20:09:53 02/29/2003/03/2025 AFP, SERUM , OPEN SPINA BIFID A maternal age at santi 20.2 [age] Not Available [facility] ([facility]) [address] [place], [address], 03/03/2025 20:09:53 02/29/2003/03/2025 AFP, SERUM , OPEN SPINA BIFID A race Caucas neha Not Available [facility] ([facility]) [address] [place], [address], 03/03/2025 20:09:53 02/29/2003/03/2025 AFP, SERUM , OPEN SPINA BIFID A weight 204 lbs Not Available [facility] ([facility]) [address] [place], [address], 03/03/2025 20:09:53 02/29/2003/03/2025 AFP, SERUM , OPEN SPINA BIFID A insulin dep diabetes No Not Available [facility] ([facility]) [address] [place], [address], 03/03/2025 20:09:53 02/29/2003/03/2025 AFP, SERUM , OPEN SPINA BIFID A multiple gestation No Not Available [facility] ([facility]) [address] [place], [address], 03/03/2025 20:09:53 02/29/2003/03/2025 AFP, SERUM , OPEN SPINA BIFID A AFP value 14.2 NG/mL Not Available [facility] ([facility]) [address] [place], [address], 03/03/2025 20:09:53 02/29/2003/03/2025 AFP, SERUM , OPEN SPINA BIFID A AFP MOM 0.55 Not Available [facility] ([facility]) [address] [place], [address], 03/03/2025 20:09:53 02/29/2003/03/2025 AFP, SERUM , OPEN SPINA BIFID A OSBR risk 1 in 23267 Not Available [facility] ([facility]) [address] [place], [address], 03/03/2025 20:09:53 02/29/2003/03/2025 AFP, SERUM , OPEN [...] 35 and older . Not Available [facility] ([facility]) [address] [place], [address], 03/03/2025 20:09:53 02/29/2003/03/2025 AFP, SERUM , OPEN SPINA BIFID A pdf . Not Available [facility] ([facility]) [address] [place], [address], 03/03/2025 20:09:53 02/29/2003/03/2025 IGP,C TNG,R FX APT HPV ALL PTH chlamydia, nuc. acid amp Negati ve negati ve Not Available [facility] ([facility]) [address] [place], [address], 03/06/2025 20:09:46 02/29/2003/03/2025 IGP,C TNG,R FX APT HPV ALL PTH gonococcus, nuc. acid amp Negati ve negati ve Not Available [facility] ([facility]) [address] [place], [address], 03/06/2025 20:09:46 02/29/2003/06/2025 IGP,C TNG,R FX APT HPV ALL PTH diagnosis: Commen t NEGAT EDDIE FOR INTRA EPITH ELIAL LESIO N OR MALIG KATHERYN . Not Available [facility] ([facility]) [address] [place], [address], 03/06/2025 20:09:46 02/29/2003/06/2025 IGP,C TNG,R FX APT HPV ALL PTH specimen adequacy: Sandoval garduno Satis facto ry for evalu ation . Endoc ervic al and/o r squam ous metap lasti c cells (endo cervi mao compo nent) are prese nt. Not Available [facility] ([facility]) [address] [place], [address], 03/06/2025 20:09:46 02/29/2003/06/2025 IGP,C TNG,R FX APT HPV ALL PTH clinician provided ICD10: Sandoval garduno Z12.4 Z11.3 Not Available [facility] ([facility]) [address] [place], [address], 03/06/2025 20:09:46 02/29/2003/06/2025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
--- OUTSIDE RECORDS SUMMARY | 2025-05-01 01:22 | XMS_ITS | Clinical Summary ---
Author Organization [facility] Address [address] [place] [address] Care Team Providers Care Admissions Officer Name Role Phone None, Physician Primary Care Provider Unavailabl e Social History Tobacco Use Types Packs/Day Years Used Date Smoking Tobacco: Never Assessed Comments Unknown Sex and Gender Information Value Date Recorded Sex Assigned at Not on file Legal Sex Female 4:51 PM EST Gender Identity Not on file Sexual Orientation Not on file Plan of Treatment Health Maintenance Due Date Last Done Comments HPV Vaccine (1 - 3-dose series) 2019 Hepatitis B (HepB) Vaccine ( 1 of 3 - 19+ 3-dose series) 2023 Tdap/Td Vaccine >11 yo (1 - Tdap) 2023 Annual SDOH Screening 05/22/2024 Depression Screening 05/22/2024 Influenza Vaccine (#1) 2025 Haemophilus Influenzae Type B (Hib) Vaccine Aged Out No longer eligible b ased on patient's age to complete this topic Hepatitis A (HepA) Vaccine Aged Out N o longer eligible based on patient's age to complete this topic Meningococcal ACWY Aged Out No longer eligible based on patient's age to complete this topic Pneumococcal Vaccines 6-49 yo Risk Aged Out No longer eligible based on patient's age to complete this topic Polio (IPV) Aged Out No longer eligi ble based on patient's age to complete this topic Rotavirus (RV) Vaccine Aged Out No lo nger eligible based on patient's age to complete this topic Care Teams Admissions Officer Relationship Specialty Start Date End Date None, Physician PCP - General 10/19/11
--- OUTSIDE RECORDS SUMMARY | 2025-05-01 01:22 | XMS_ITS | Continuity of Care Document ---
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 Plan of Treatment Reminders Order Date Submit Date Provider Last Modified By Organization Details Last Modified Time Details Appointments OB 1hr Glucose 2025 08:40A M Mildred Mota rtiz, DO Not available Not available Not available Lab urinalysi s, dipstick 2024 025 AMARI Suggs Data Conversion Developer, [address] [place] [address] , [place], [address], 04/29/2025 13:51:23 Referral cardiolog ist referral 2024 025 [facility], Hilarya Thomas Nguyen, [place], [address], 04/29/2025 14:32:43 Procedures None recorded. Surgeries None recorded. Imaging US, obstetric , follow-up 2024 025 linette [place] Data [employer]version Developer, [address] [place] [address] , [place], [address], 04/29/2025 13:15:35 Medication Orders None recorded. Patient TargetsNo targets recorded. Patient Instructions Encounter Date Encounter Id Patient Instructions Last Modified By Organization Details Last Modified Time 04/29/2025 [id number] high-risk : care instructions [email or web address] Not available 04/29/2025 13:15:35 Reason for Referral Biomedical Technician Referral for Ta chycardia Referring Physician: Angelina Gallagher COMBINING MACHINE OPERATOR, Encounter Date: 04/29/2025 Results Created Date Observation Date Name Description Value Unit Range Abnormal Flag Note LastModifiedBy Organization Detail LastModifiedTime 01/22/2001/22/2025 PREGN TONY, INITI AL SCREE N HBsAg screen Negati ve negati ve Not Available [facility] ([facility]) [address] [place], [address], 01/23/2025 14:12:25 01/22/2001/22/2025 PREGN TONY, INITI AL SCREE N HCV Ab Non Reacti ve non reacti ve Not Available [facility] ([facility]) [address] [place], [address], 01/23/2025 14:12:25 01/22/20 25 01/22/2025 PREGN TONY, INITI AL SCREE N interpretati on: Commen t Not infec phill with HCV unles s early or acute infec tion is suspe cted (whic h may be delay ed in an immun ocomp romis ed indiv idual ), or other evide nce exist s to indic ate HCV infec tion. Not Available [facility] ([facility]) [address] [facility], [place], [address], 01/23/2025 14:12:25 01/22/20 25 01/22/2025 PREGN TONY, INITI AL SCREE N RPR Non Reacti ve non reacti ve Not Available [facility] ([facility]) [address] [place], [address], 01/23/2025 14:12:25 01/22/2001/22/2025 PREGN TONY, INITI AL SCREE N rubella antibodies, IgG 1.09 index immune >0.99 Non-i mmune <0.90 Equiv ocal 0.90 - 0.99 Immun e >0.99 Not Available [facility] ([facility]) [address] [place], [address], 01/23/2025 14:12:25 01/22/20 25 01/22/2025 PREGN TONY, INITI AL SCREE N ABO grouping O Not Available [facility] ([facility]) [address] [facility], [place], [address], 01/23/2025 14:12:25 01/22/20 25 01/22/2025 PREGN TONY, INITI AL SCREE N Rh factor Negati ve Pleas e note: Prior recor ds for this patie nt's ABO / Rh type are not avail able for addit ional verif icati on. Not Available [facility] ([facility]) [address] [facility], [place], [address], 01/23/2025 14:12:25 01/22/20 25 01/22/2025 PREGN TONY, INITI AL SCREE N antibody screen Negati ve negati ve Not Available [facility] ([facility]) [address] [facility], [place], [address], 01/23/2025 14:12:25 01/22/20 25 01/22/2025 PREGN TONY, INITI AL SCREE N HIV Ab/P24 Ag screen Non Reacti ve non reacti ve HIV-1 /HIV- 2 antib odies and HIV-1 p24 antig en were NOT detec phill. There is no labor atory evide nce of HIV infec tion. HIV Negat eddie Not Available [facility] ([facility]) [address] [facility], [place], [address], 01/23/2025 14:12:25 01/22/20 25 01/22/2025 PREGN TONY, INITI AL SCREE N WBC 8.6 x10e3 /uL 3.4-10 .8 normal Not Available [facility] ([facility]) [address] [place], [address], 01/23/2025 14:12:25 01/22/20 25 01/22/2025 PREGN TONY, INITI AL SCREE N RBC 4.55 x10e6 /uL 3.77-5 .28 normal Not Available [facility] ([facility]) [address] [facility], [place], [address], 01/23/2025 14:12:25 01/22/2001/22/2025 PREGN TONY, INITI AL SCREE N hemoglobin 13.4 g/dL 11.1-1 5.9 normal Not Available [facility] ([facility]) [address] [facility], [place], [address], 01/23/2025 14:12:25 01/22/2001/22/2025 PREGN TONY, INITI AL SCREE N hematocrit 40.5 % 34.0-4 6.6 normal Not Available [facility] ([facility]) [address] [facility], [place], [address], 01/23/2025 14:12:25 01/22/2001/22/2025 PREGN TONY, INITI AL SCREE N MCV 89 fL 79-97 normal Not Available [facility] ([facility]) [address] [place], [address], 01/23/2025 14:12:25 01/22/20 25 01/22/2025 PREGN TONY, INITI AL SCREE N MCH 29.5 pg 26.6-3 3.0 normal Not Available [facility] ([facility]) [address] [place], [address], 01/23/2025 14:12:25 01/22/2001/22/2025 PREGN TONY, INITI AL SCREE N MCHC 33.1 g/dL 31.5-3 5.7 normal Not Available [facility] ([facility]) [address] [place], [address], 01/23/2025 14:12:25 01/22/20 25 01/22/2025 PREGN TONY, INITI AL SCREE N RDW 12.1 % 11.7-1 5.4 Not Available [facility] ([facility]) [address] [facility], [place], [address], 01/23/2025 14:12:25 01/22/20 25 01/22/2025 PREGN TONY, INITI AL SCREE N platelets 273 x10e3 /uL 150-45 0 normal Not Available [facility] ([facility]) [address] [facility], [place], [address], 01/23/2025 14:12:25 01/22/20 25 01/22/2025 PREGN TONY, INITI AL SCREE N neutrophils 76 % not estab. normal Not Available [facility] ([facility]) [address] [facility], [place], [address], 01/23/2025 14:12:25 01/22/20 25 01/22/2025 PREGN TONY, INITI AL SCREE N lymphs 16 % not estab. normal Not Available [facility] ([facility]) [address] [facility], [place], [address], 01/23/2025 14:12:25 01/22/20 25 01/22/2025 PREGN TONY, INITI AL SCREE N monocytes 7 % not estab. normal Not Available [facility] ([facility]) [address] [facility], [place], [address], 01/23/2025 14:12:25 01/22/2001/22/2025 PREGN TONY, INITI AL SCREE N eos 0 % not estab. normal Not Available [facility] ([facility]) [address] [facility], [place], [address], 01/23/2025 14:12:25 01/22/20 25 01/22/2025 PREGN TONY, INITI AL SCREE N basos 1 % not estab. 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 0 normal Not Available [facility] ([facility]) [address] [place], [address], 01/23/2025 14:12:25 01/22/2001/22/2025 PREGN TONY, INITI AL SCREE N lymphs (absolute) 1.3 x10e3 /uL 0.7-3. 1 normal Not Available [facility] ([facility]) [address] [place], [address], 01/23/2025 14:12:25 01/22/2001/22/2025 PREGN TONY, INITI AL SCREE N monocytes(ab solute) 0.6 x10e3 /uL 0.1-0. 9 normal Not Available [facility] ([facility]) [address] [place], [address], 01/23/2025 14:12:25 01/22/20 25 01/22/2025 PREGN TONY, INITI AL SCREE N eos (absolute) 0.0 x10e3 /uL 0.0-0. 4 normal Not Available [facility] ([facility]) [address] [place], [address], 01/23/2025 14:12:25 01/22/2001/22/2025 PREGN TONY, INITI AL SCREE N baso (absolute) 0.1 x10e3 /uL 0.0-0. 2 normal Not Available [facility] ([facility]) [address] [place], [address], 01/23/2025 14:12:25 01/22/20 25 01/22/2025 PREGN TONY, INITI AL SCREE N immature granulocytes 0 % not estab. Not Available [facility] ([facility]) [address] [facility], [place], [address], 01/23/2025 14:12:25 01/22/20 25 01/22/2025 PREGN TONY, INITI AL SCREE N immature grans (abs) 0.0 x10e3 /uL 0.0-0. 1 Not Available [facility] ([facility]) [address] [facility], [place], [address], 01/23/2025 14:12:25 01/22/2001/22/2025 PREGN TONY, INITI AL SCREE N NRBC 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 Not Available [facility] ([facility]) [address] [facility], [place], [address], 01/23/2025 14:12:25 01/22/2001/22/2025 PREGN TONY, INITI AL SCREE N hematology comments: 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 Not Available [facility] ([facility]) [address] [place], [address], 01/23/2025 14:12:25 01/22/20 25 01/22/2025 PREGN TONY, INITI AL SCREE N specific gravity 1.023 1.005- 1.030 normal Not Available [facility] ([facility]) [address] [place], [address], 01/23/2025 14:12:25 01/22/2001/22/2025 PREGN TONY, INITI AL SCREE N pH 6.0 5.0-7. 5 normal Not Available [facility] ([facility]) [address] [place], [address], 01/23/2025 14:12:25 01/22/20 25 01/22/2025 PREGN TONY, INITI AL SCREE N urine-color Yellow yellow Not Available [facility] ([facility]) [address] [facility], [place], [address], 01/23/2025 14:12:25 01/22/20 25 01/22/2025 PREGN TONY, INITI AL SCREE N appearance Cloudy clear abnormal Not Available [facility] ([facility]) [address] [facility], [place], [address], 01/23/2025 14:12:25 01/22/20 25 01/22/2025 PREGN TONY, INITI AL SCREE N WBC esterase Negati ve negati ve Not Available [facility] ([facility]) [address] [place], [address], 01/23/2025 14:12:25 01/22/20 25 01/22/2025 PREGN TONY, INITI AL SCREE N protein Negati ve negati ve/tra ce Not Available [facility] ([facility]) [address] [place], [address], 01/23/2025 14:12:25 01/22/20 25 01/22/2025 PREGN TONY, INITI AL SCREE N glucose Negati ve negati ve Not Available [facility] ([facility]) [address] [place], [address], 01/23/2025 14:12:25 01/22/20 25 01/22/2025 PREGN TONY, INITI AL SCREE N ketones Negati ve negati ve Not Available [facility] ([facility]) [address] [place], [address], 01/23/2025 14:12:25 01/22/20 25 01/22/2025 PREGN TONY, INITI AL SCREE N occult blood Negati ve negati ve Not Available [facility] ([facility]) [address] [place], [address], 01/23/2025 14:12:25 01/22/20 25 01/22/2025 PREGN TONY, INITI AL SCREE N bilirubin Negati ve negati ve Not Available [facility] ([facility]) [address] [place], [address], 01/23/2025 14:12:25 01/22/20 25 01/22/2025 PREGN TONY, INITI AL SCREE N urobilinogen ,semi-qn 0.2 mg/dL 0.2-1. 0 normal Not Available [facility] ([facility]) [address] [place], [address], 01/23/2025 14:12:25 01/22/20 25 01/22/2025 PREGN TONY, INITI AL SCREE N nitrite, urine Negati ve negati ve Not Available [facility] ([facility]) [address] [facility], [place], [address], 01/23/2025 14:12:25 01/22/20 25 01/22/2025 PREGN TONY, INITI AL SCREE N microscopic examination Commen t Micro scopi c follo ws if indic ated. Not Available [facility] ([facility]) [address] [facility], [place], [address], 01/23/2025 14:12:25 01/22/20 25 01/22/2025 PREGN TONY, INITI AL SCREE N microscopic examination See below: Micro scopi c was indic ated and was perfo rmed. Not Available [facility] ([facility]) [address] [place], [address], 01/23/2025 14:12:25 01/22/20 25 01/22/2025 PREGN TONY, INITI AL SCREE N WBC 0-5 /hpf 0 - 5 Not Available [facility] ([facility]) [address] [place], [address], 01/23/2025 14:12:25 01/22/20 25 01/22/2025 PREGN TONY, INITI AL SCREE N RBC 0-2 /hpf 0 - 2 Not Available [facility] ([facility]) [address] [facility], [place], [address], 01/23/2025 14:12:25 01/22/20 25 01/22/2025 PREGN TONY, INITI AL SCREE N epithelial cells (non renal) >10 /hpf 0 - 10 abnormal Not Available [facility] ([facility]) [address] [facility], [place], [address], 01/23/2025 14:12:25 01/22/20 25 01/22/2025 PREGN TONY, INITI AL SCREE N epithelial cells (renal) 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 Not Available [facility] ([facility]) [address] [facility], [place], [address], 01/23/2025 14:12:25 01/22/20 25 01/22/2025 PREGN TONY, INITI AL SCREE N casts None seen /lpf none seen Not Available [facility] ([facility]) [address] [facility], [place], [address], 01/23/2025 14:12:25 01/22/20 25 01/22/2025 PREGN TONY, INITI AL SCREE N cast type 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 Not Available [facility] ([facility]) [address] [facility], [place], [address], 01/23/2025 14:12:25 01/22/20 25 01/22/2025 PREGN TONY, INITI AL SCREE N crystals 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 Not Available [facility] ([facility]) [address] [facility], [place], [address], 01/23/2025 14:12:25 01/22/20 25 01/22/2025 PREGN TONY, INITI AL SCREE N crystal type 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 Not Available [facility] ([facility]) [address] [facility], [place], [address], 01/23/2025 14:12:25 01/22/20 25 01/22/2025 PREGN TONY, INITI AL SCREE N mucus threads 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 Not Available [facility] ([facility]) [address] [facility], [place], [address], 01/23/2025 14:12:25 01/22/20 25 01/22/2025 PREGN TONY, INITI AL SCREE N bacteria Few none seen/f ew Not Available [facility] ([facility]) [address] [facility], [place], [address], 01/23/2025 14:12:25 01/22/2001/22/2025 PREGN TONY, INITI AL SCREE N yeast 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 Not Available [facility] ([facility]) [address] [facility], [place], [address], 01/23/2025 14:12:25 01/22/20 25 01/22/2025 PREGN TONY, INITI AL SCREE N trichomonas 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 Not Available [facility] ([facility]) [address] [facility], [place], [address], 01/23/2025 14:12:25 01/22/2001/22/2025 PREGN TONY, INITI AL SCREE N comment 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 Not Available [facility] ([facility]) [address] [place], [address], 01/23/2025 14:12:25 01/22/2001/23/2025 PREGN TONY, INITI AL SCREE N chlamydia trachomatis, PEPE Negati ve negati ve Not Available [facility] ([facility]) [address] [place], [address], 01/23/2025 14:12:25 01/22/20 25 01/23/2025 PREGN TONY, INITI AL SCREE N neisseria gonorrhoeae, PEPE Negati ve negati ve Not Available [facility] ([facility]) [address] [place], [address], 01/23/2025 14:12:25 01/22/20 25 01/23/2025 PREGN TONY, INITI AL SCREE N urine culture,pren atal, w/gbs Final report Not Available [facility] ([facility]) [address] [facility], [place], [address], 01/23/2025 14:12:25 01/22/20 25 01/23/2025 PREGN TONY, INITI AL SCREE N result 1 No growth Not Available [facility] ([facility]) [address] [facility], [place], [address], 01/23/2025 14:12:25 01/22/2001/22/2025 HEMOG LOBIN A1C hemoglobin A1C 5.1 % 4.8-5. 6 normal Predi abete s: 5.7 - 6.4 Diabe crystal: >6.4 Glyce carola contr ol for adult s with diabe crystal: <7.0 Not Available [facility] ([facility]) [address] [facility], [place], [address], 01/23/2025 14:12:25 01/22/2001/26/2025 COMPL IANCE DRUG RON [...] ===== ===== ===== === Not Available [facility] ([facility]) [address] [facility], [place], [address], 01/26/2025 10:35:57 01/22/20 25 01/26/2025 COMPL IANCE DRUG RON SIS, UR pdf . Not Available [facility] ([facility]) [address] [facility], [place], [address], 01/26/2025 10:35:57 01/22/20 25 01/21/2025 pregn tony test, urine HCG positi ve Not Available [employer] [address] [facility] , [place], [address], 01/21/2025 08:32:47 02/01/20 25 02/06/2025 MATER NIT21 PLUS CORE gestation Single ton Not Available [facility] ([facility]) [address] [facility], [place], [address], 02/06/2025 03:08:41 02/01/2002/06/2025 MATER NIT21 PLUS CORE fraction 16% Not Available [facility] ([facility]) [address] [facility] [place], [address], 02/06/2025 03:08:41 02/01/2002/06/2025 MATER NIT21 PLUS CORE gestational age > or = 9W: Yes Not Available [facility] ([facility]) [address] [facility] [place], [address], 02/06/2025 03:08:41 02/01/2002/06/2025 MATER NIT21 PLUS CORE test result Negati ve Not Available [facility] ([facility]) [address] [place], [address], 02/06/2025 03:08:41 02/01/2002/06/2025 MATER NIT21 PLUS CORE laboratory courier comments Sandoval Mnceil speci men showe d an expec phill repre senta tion of chrom osome 21, 18 and 13 mater ial. Clini mao corre latio n is doris patricia. Not Available [facility] ([facility]) [address] [place], [address], 02/06/2025 03:08:41 02/01/2002/06/2025 MATER NIT21 PLUS CORE approved by Sandoval munson MD, PhD, [facility] tor, [place] [facility] Labor atori es Not Available [facility] ([facility]) [address] [place], [address], 02/06/2025 03:08:41 02/01/20 25 02/06/2025 MATER NIT21 PLUS CORE trisomy 21 (down syndrome) Negati ve Not Available [facility] ([facility]) [address] [place], [address], 02/06/2025 03:08:41 02/01/2002/06/2025 MATER NIT21 PLUS CORE trisomy 18 (burt syndrome) Negati ve Not Available [facility] ([facility]) [address] [facility], [place], [address], 02/06/2025 03:08:41 02/01/2002/06/2025 MATER NIT21 PLUS CORE trisomy 13 (patau syndrome) Negati ve Not Available [facility] ([facility]) [address] [facility], [place], [address], 02/06/2025 03:08:41 02/01/2002/06/2025 MATER NIT21 PLUS CORE sex Commen t Consi stent with Femal e Not Available [facility] ([facility]) [address] [place], [address], 02/06/2025 03:08:41 02/01/2002/06/2025 MATER NIT21 PLUS CORE negative predictive value Note The Negat eddie Predi ctive Value (NPV) for triso my 21, 18, and 13 is great er than 99%. The NPV for SCA and ESS canno t be calcu lated as SCA and ESS are only repor phill when an abnor malit y is detec phill. Not Available [facility] ([facility]) [address] [facility], [place], [address], 02/06/2025 03:08:41 02/01/2002/06/2025 MATER NIT21 PLUS CORE positive predictive value N/A Not Available [facility] ([facility]) [address] [place], [address], 02/06/2025 03:08:41 02/01/2002/06/2025 MATER NIT21 PLUS CORE [...] yet been valid ated. Not Available [facility] ([facility]) [address] [facility], [place], [address], 02/06/2025 03:08:41 02/01/2002/06/2025 MATER NIT21 PLUS CORE test method Commen t Circu latin g cell- free DNA was purif ied from the plasm a compo nent of mater nal blood . The extra cted DNA was then conve rted into a [place] DNA valentín ry for aneup loidy ron sis of chrom osome s 21, 18, and 13 via next gener ation seque ncing .[1] Optio nal findi ngs based on the test order inclu de sex chrom osome aneup loidy (SCA) [2], and enhan reina seque ncing serie s (ESS) [3], which will only be repor pihll on as an addit ional findi ng when an abnor malit y is detec phill. SCA testi ng inclu cuong infor matio n on X and Y repre senta tion, while ESS testi ng inclu cuong delet ions in selec phill regio ns (22q, 15q, 11q, 8q, 5p, 4p, 1p) and triso my of chrom osome s 16 and 22. Not Available [facility] ([facility]) [address] [facility], [place], [address], 02/06/2025 03:08:41 02/01/2002/06/2025 MATER NIT21 PLUS CORE performance Commen t The perfo rmanc e etelvina cteri stics of the Mater niT(R ) 21 PLUS labor atory -deve loped test (LDT) have been deter mined in a clini mao valid ation study with pregn ant women at incre ased risk for chrom osoma l aneup loidy .[1-4 ] Not Available [facility] ([facility]) [address] [facility], [place], [address], 02/06/2025 03:08:41 02/01/20 25 02/06/2025 MATER NIT21 [...] ----- ----- ----- ----- ----- ---! ! Rco my 18 (Lyle quinn Syndr ome) ! >99.9 % ! 99.6% ! !---- ----- ----- ----- ----- ----- ----- ----- ----- ----- ----- ---! ! Rafaela my 13 (Pata u Syndr ome) ! 91.7% ! 99.7% ! !---- ----- ----- ----- ----- ----- ----- ----- ----- ----- ----- ---! ! Sex Chrom osome Aneup rena walters## ! 96.2% ! 99.7% ! !---- ----- ----- ----- ----- ----- ----- ----- ----- ----- ----- ---! * As repor phill in ISCA datab ase nstd3 7 [http s://w booker.nc bi.nl .[facility] .gov/ dbvar /stud ies/n std37 / ] [...] eton gesta tion only. Not Available [facility] ([facility]) [address] [facility], [place], [address], 02/06/2025 03:08:41 02/01/20 25 02/06/2025 MATER NIT21 [...] and Fragm in(R) ). Not Available [facility] ([facility]) [address] [facility], [place], [address], 02/06/2025 03:08:41 02/01/2002/06/2025 MATER NIT21 PLUS CORE note Commjaosn t Antonio [employer]. is a subsi diary of Labor atory Corpo ratio n of Lamin truong, using the brand [employer]ob. This test was devel oped and its perfo rmanc e etelvina cteri stics deter mined by [employer]. It has not been clear ed or appro brian by the Food and Drug Admin istra tion. This labor atory is certi fied under the Clini mao Labor atory Impro vemen t Amend ments (CLIA ) as quali fied to perfo rm high compl exity clini mao labor atory testi ng and accre dited by the [place] del real of Ameileen can Patho logis ts (CAP) . Not Available [facility] ([facility]) [address] [facility], [place], [address], 02/06/2025 03:08:41 02/01/2002/06/2025 MATER NIT21 PLUS CORE references Commjason t 1. Palom may GE, et al. Víctor Med. 2012; 14(3) :296- 305. 2. Terry schroeder AR, et al. Danikaa t Diag. 2013; 33(6) :591- 597. 3. Tigre C, et al. Clin Chem. 2015 Aug;6 1(4): 608-6 16. 4. [place] DEL REAL, et al. Víctor Med. 2011; 13(11 ):913 -920. 5. ACOG/ SMFM Pract ice Bulle tin No. 226, Feb 2020. Not Available [facility] ([facility]) [address] [facility], [place], [address], 02/06/2025 03:08:41 02/01/2002/06/2025 MATER NIT21 PLUS CORE pdf . Not Available [facility] ([facility]) [address] [facility], [place], [address], 02/06/2025 03:08:41 02/29/2002/28/2025 AFP, SERUM , OPEN SPINA BIFID A comment: Sandoval granger , Ph.D. , [facility] Direc tor Refer ences : Avail able Upon Reque st. Multi ples Of Media n Cutof fs For AFP [place] tions Singl eton 2.5 Black 2.8 IDD 2.0 Twins 4.5 Abbre viati on Defin ition s IDD - Insul in Dep Diabe crystal OSBR - Open Spina Bifid a Risk For furth er inqui brandee conta ct [facility] Víctor ics Servi florentino at [phone]. This test was devel oped and its perfo rmanc e etelvina cteri stics deter mined by [facility]. It has not been clear ed or appro brian by the Food and Drug Admin istra tion. Not Available [facility] ([facility]) [address] [facility], [place], [address], 03/03/2025 20:09:53 02/29/2003/03/2025 AFP, SERUM , OPEN SPINA BIFID A results Report Not Available [facility] ([facility]) [address] [place], [address], 03/03/2025 20:09:53 02/29/2003/03/2025 AFP, SERUM , OPEN SPINA BIFID A test results: *Scree n Negati ve* Not Available [facility] ([facility]) [address] [facility], [place], [address], 03/03/2025 20:09:53 02/29/2003/03/2025 AFP, SERUM , OPEN SPINA BIFID A gest. age on collection date 15.6 weeks Not Available [facility] ([facility]) [address] [place], [address], 03/03/2025 20:09:53 02/29/2003/03/2025 AFP, SERUM , OPEN SPINA BIFID A gestat. age based on LMP 11/11 Recal culat ions are not recom saul d when gesta aneesh l datin g by LMP and ultra sound are withi n 10 days. Not Available [facility] ([facility]) [address] [place], [address], 03/03/2025 20:09:53 02/29/2003/03/2025 AFP, SERUM , OPEN SPINA BIFID A maternal age at santi 20.2 [age] Not Available [facility] ([facility]) [address] [place], [address], 03/03/2025 20:09:53 02/29/2003/03/2025 AFP, SERUM , OPEN SPINA BIFID A race Caucas neha Not Available [facility] ([facility]) [address] [place], [address], 03/03/2025 20:09:53 02/29/2003/03/2025 AFP, SERUM , OPEN SPINA BIFID A weight 204 lbs Not Available [facility] ([facility]) [address] [place], [address], 03/03/2025 20:09:53 02/29/2003/03/2025 AFP, SERUM , OPEN SPINA BIFID A insulin dep diabetes No Not Available [facility] ([facility]) [address] [place], [address], 03/03/2025 20:09:53 02/29/2003/03/2025 AFP, SERUM , OPEN SPINA BIFID A multiple gestation No Not Available [facility] ([facility]) [address] [place], [address], 03/03/2025 20:09:53 02/29/2003/03/2025 AFP, SERUM , OPEN SPINA BIFID A AFP value 14.2 NG/mL Not Available [facility] ([facility]) [address] [place], [address], 03/03/2025 20:09:53 02/29/2003/03/2025 AFP, SERUM , OPEN SPINA BIFID A AFP MOM 0.55 Not Available [facility] ([facility]) [address] [place], [address], 03/03/2025 20:09:53 02/29/20 25 03/03/2025 AFP, SERUM , OPEN SPINA BIFID A OSBR risk 1 in [address] Not Available [facility] ([facility]) [address] [place], [address], 03/03/2025 20:09:53 02/29/2003/03/2025 AFP, SERUM , OPEN [...] ss avail able optio ns. The Lamin can Colle ge of Obste trici ans and Gynec ologi sts recom mends amnio cente sis be offer ed to women age 35 and older . Not Available [facility] ([facility]) [address] [place], [address], 03/03/2025 20:09:53 02/29/2003/03/2025 AFP, SERUM , OPEN SPINA BIFID A pdf . Not Available [facility] ([facility]) [address] [place], [address], 03/03/2025 20:09:53 02/29/2003/03/2025 IGP,C TNG,R FX APT HPV ALL PTH chlamydia, nuc. acid amp Negati ve negati ve Not Available [facility] ([facility]) [address] [place], [address], 03/06/2025 20:09:46 02/29/2003/03/2025 IGP,C TNG,R FX APT HPV ALL PTH gonococcus, nuc. acid amp Negati ve negati ve Not Available [facility] ([facility]) [address] [place],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
[2025-05-01] MEDS: LACTATED RINGERS 1000ML 1,000 ML 999 ML IV (01:36)
--- NOTE | 2025-05-01 01:36 | HMH.EDGENADL ---
Discharge Plan Disposition Patient Disposition: Home, Self-Care Condition: Good Prescriptions Prescriptions: New pyridoxine (vitamin B6) 25 mg tablet 25 mg PO TID PRN (Reason: nausea and vomiting) Qty: 14 0RF No Action propranolol 20 mg tablet 20 mg PO TID promethazine 25 mg Tablet 25 mg PO Q6H PRN (Reason: Nausea And Vomiting) Qty: 15 0RF amoxicillin 500 MG capsule 500 mg PO TID Qty: 30 0RF fluticasone propionate 120 SPR/BOT bottle 1 spr NS DAILY Qty: 1 0RF Rx Instructions: one spray in each nostril daily iricctglijvycxs-kjjkxnrkq-OG [Bromfed DM] 2-30-10 mg/5 mL Syrup 5 ml PO Q6H PRN (Reason: Cough) Qty: 240 0RF ondansetron 4 mg Tablet,Disintegrating 4 mg PO Q8H PRN (Reason: Nausea) Qty: 12 0RF Referrals Follow up/Referrals: Pola Garcia MD [Primary Care Provider, Medical] - See instructions Activity Restrictions/Add. Instructions Additional Instructions/Restrictions: You were evaluated in the ER and are believed to be appropriate for discharge at this time. Take the prescribed vitamin B6 if needed for nausea as directed. Drink plenty of fluids including water, Gatorade, Pedialyte to stay hydrated. Call your OB and make an appointment for close follow-up in the next 1 to 2 days. You have slight bacteria and protein in your urine and both of these require very close follow-up with the OB. Return to the ER with any new, worsening, or otherwise concerning symptoms. Clinical Impressions Clinical Impression: Nausea, vomiting, and diarrhea, , Proteinuria Instructions Patient Instructions: DI for Diarrhea and Traveler's Diarrhea in Adults, DI for Diarrhea and Traveler's Diarrhea in Children, DI for Nausea in Adults, DI for Nausea in Children Print Language Print Language: Citizen Of [place] Discharge ED Provider: Juan Carlos Gordon Adult HPI General Chief complaint: Nausea/Vomiting/Diarrhea Stated complaint: vomiting, diarrhea, stomach cramps Time Seen by Provider: 05/01/25 01:24 Mode of Arrival: Ambulatory Source of Information: Patient Description of Symptoms (Recalled from ER Triage Doc. by RN): PT presents to the ED for evaluation of N/V. PT has had x3 episodes of emesis. History of Present Illness HPI narrative: 19-year-old female G2, P1 approximately 23 weeks presents to the ER for evaluation of nausea, vomiting, diarrhea. Patient states she has had 8 episodes of nonbloody, nonmelanotic diarrhea. She has had 3 episodes of nonbloody, nonbilious emesis. Symptoms started approximately 5 hours prior to arrival. She states she has had difficulty keeping anything down including fluids and because she has been dealing with tachycardia during this anyways she wanted to be evaluated due to concerns of dehydration. She states her heart rate recently has been running between the 90s and 160s. She arrived in the ER in the 120s and is in the 110s during my exam. She denies chest pain or difficulty breathing. She states she has been having diffuse intestinal cramping before diarrhea but denies contractions, vaginal bleeding, vaginal discharge, also denies dysuria and hematuria. She denies headache, dizziness, numbness, tingling, weakness. She states she has not taken any medications for her symptoms because she has been avoiding all medications this due to complications with her previous . No other complaints or concerns. Related Data Home Medications ?Medication ?Instructions ?Recorded ?Confirmed propranolol 20 mg tablet 20 mg PO TID . 07/11/19 07/20/20 Previous Rx's ?Medication ?Instructions ?Recorded amoxicillin 500 mg capsule 500 mg PO TID #30 caps 08/01/21 fluticasone propionate 50 1 spr NS DAILY #1 ea 08/01/21 mcg/actuation nasal spray,suspension promethazine 25 mg tablet 25 mg PO Q6H PRN Nausea And 07/07/22 Vomiting #15 tabs snhndxibbrgxjiu-khgfaoabvgrjxpb-OB 5 ml PO Q6H PRN Cough #240 mL 12/08/22 2 mg-30 mg-10 mg/5 mL oral syrup (Bromfed DM) ondansetron 4 mg disintegrating 4 mg PO Q8H PRN Nausea #12 tabs 12/08/22 tablet pyridoxine (vitamin B6) 25 mg 25 mg PO TID PRN nausea and 05/01/25 tablet vomiting #14 tabs Allergies Allergy/AdvReac Type Severity Reaction Status Date / Time No Known Allergies Allergy Verified 07/20/20 09:18 [facility] Disclaimer: The information contained in this section may have been updated after the patient was seen, as this information can be updated by other users. Social History Smoking Status: Never smoker alcohol intake: never substance use type: denies use current occupational status: unemployed Travel in the last 8 weeks?: None household members: family housing: house number of children: 0 Have you lived/traveled outside [place] in past 30 days?: No Contact w/someone who lives/traveled outside [place] past 30 days?: No Exposure to someone with infectious disease in past 14 days?: No Do you have a fever (greater than 100.4 F or 38 C)?: No Have you tested positive for COVID-19?: No Exposed to someone with COVID-19 in past 14 days?: No Do you have a sore throat?: No Do you have a cough?: No Do you have any weakness?: No Do you have any diarrhea?: Yes Are you experiencing any unusual bleeding?: No Do you have any muscle aches/pain?: No Do you have any abdominal pain?: Yes Are you experiencing loss of taste or smell?: No Other Medical History Have you received the Flu Vaccine for this season: No Have you received the Pneumonia Vaccine: No ROS Obtained: Yes Systems reviewed as appropriate & no additional complaints except as documented per HPI Physical Exam General General appearance: alert and in no apparent distress Head Head exam: atraumatic and normocephalic Eye Eye exam: Present PERRL and EOMI ENT ENT exam: Present mucous membranes moist Neck Neck exam: Present normal inspection and full ROM Chest Chest inspection: Present symmetric chest wall rise Respiratory Respiratory exam: Absent respiratory distress or stridor Cardiovascular Cardiovascular exam: Present normal rhythm and tachycardia Abdominal Exam Abdominal exam: Present soft; Absent distention, tenderness, guarding or rebound Comment: Gravid abdomen with fundus approximately 2 to 3 cm above the umbilicus, appropriate for estimated gestational age Extremities Exam Extremities exam: Present full ROM Neurological Exam Neurological exam: Present alert and oriented X3; Absent motor sensory deficit Psychiatric Psychiatric exam: Present normal affect and normal mood Skin Skin exam: Present warm and dry Medical Decision Making Medical Records Medical records reviewed: Yes I reviewed the patient's medical records. Screening: Per USPSTF and CDC recommendations, given the prevalence of disease in our region, it is our hospital?s policy to screen for HIV and viral Hepatitis for all patients aged 18 and over and those with ongoing risk factors. Kevin Inquiry Pt receiving controlled substance: No Vital Signs: 05/01/25 01:12 05/01/25 01:17 Temperature 98.3 F Temperature Source Oral Pulse Rate 124 H Pulse Rate [Right] 120 H Respiratory Rate 18 18 Blood Pressure 132/84 Blood Pressure [Right Arm] 132/84 Blood Pressure Mean [Right Arm] 100 02 Sat by Pulse Oximetry 98 98 Oxygen Delivery Method Room Air Room Air Lab Data Lab Results 05/01/25 01:40: WBC 15.0 H, RBC 4.26, Hgb 12.4, Hct 37.8, MCV 88.7, MCH 29.1, MCHC 32.8, RDW 12.9, Plt Count 230, MPV 11.6 H, Neut % (Auto) 89.2 H, Lymph % (Auto) 3.3 L, [place] % (Auto) 6.0, Eos % (Auto) 0.3, Baso % (Auto) 0.5, Neut # (Auto) 13.4 H, Lymph # (Auto) 0.5 L, [place] # (Auto) 0.9, Eos # (Auto) 0.0, Baso # (Auto) 0.1, Total Counted 100, Neutrophils % (Manual) 88 H, Band Neutrophils % 4, Lymphocytes % (Manual) 3 L, Monocytes % (Manual) 5, Sodium 133 L, Potassium 4.4, Chloride 102, Carbon Dioxide 19 L, Anion Gap 16.4 H, BUN 11, Creatinine 0.50 L, Estimated Creat Clear 296, Estimated GFR 157, Est GFR ( Amer) 190, Glucose 116 H, Calcium 9.0, Total Bilirubin 0.7, AST 33, ALT 24, Alkaline Phosphatase 67, Total Protein 8.2, Albumin 4.4, Globulin 3.8 H, Albumin/Globulin Ratio 1.2 05/01/25 01:41: Urine Color Yellow, Urine Appearance Clear, Urine pH 6.0, Ur Specific [place] >= 1.030, Urine Protein Trace, Urine Glucose (UA) Negative, Urine Ketones 1+, Urine Blood Negative, Urine Nitrate Negative, Urine Bilirubin 1+ A, Urine Urobilinogen 0.2, Ur Leukocyte Esterase Negative, Urine RBC Occasional, Urine WBC Occasional, Ur Squamous Epith Cells 3-5, Urine Bacteria Trace, Urine Mucus 3+ 05/01/25 01:40 05/01/25 01:40 Orders (Tests/Meds): ED MEDICATIONS Discontinued Medications Generic Name Dose Route Start Last Admin Trade Name Ady PRN Reason Stop Dose Admin Doxylamine Succinate/Pyridoxine 1 tab 05/01/25 01:35 05/01/25 01:45 Doxylamine 10mg/Pyridoxine 10mg Tablet PO 05/01/25 01:36 1 tab ONCE ONE Administration Lactated Ringer's 1,000 mls @ 999 mls/hr 05/01/25 01:24 05/01/25 01:36 Lactated Ringer's 1000 Ml Bag IV 05/01/25 02:24 999 mls/hr .Q1H1M ONE Administration ORDERS Category Date Time Status POCUS Point of Care (ER Only) Stat Exams 05/01/25 01:24 Completed CBC w/Auto Diff [Complete Blood Count Auto Diff] Stat Lab 05/01/25 01:40 Completed CMP [Comprehensive Metabolic Panel] Stat Lab 05/01/25 01:40 Completed HIV Combo Stat Lab 05/01/25 01:40 Received Hepatitis C Ab Qual. W/ RFX Stat Lab 05/01/25 01:40 Received Lactic Acid Stat Lab 05/01/25 02:19 Received Urinalysis and Microscopic Stat Lab 05/01/25 01:41 Completed Medical Decision Narrative: In summary, this 19-year-old female G2, P1 approximately 23 weeks presents to the emergency department today with nausea, vomiting, diarrhea. On initial evaluation patient is tachycardic but otherwise hemodynamically stable, afebrile, GCS 15, independently ambulatory into the ER, she has no tenderness on abdominal exam, nonfocal abdomen, she does have a gravid abdomen with fundus palpated approximately 2 to 3 cm above the umbilicus appropriate for EGA. Remainder of exam benign. Lgjgv-mt-wupz ultrasound personally performed and interpreted demonstrates live intrauterine with heart rate 160. See procedure note for details. Differential diagnosis includes but is not limited to viral syndrome which I believe is most likely since the same illness has been affecting numerous people in the community and patient's daughter just had similar symptoms. I also considered the possibility of electrolyte abnormality, dehydration, lactic acidosis, UTI, asymptomatic bacteriuria. Without tenderness and a nonfocal exam I have low concern for surgical pathology. Based on these concerns, I ordered basic hematologic and serum labs as well as urine studies. Patient did not want Zofran or Phenergan, she states she would like to avoid nausea medications if possible. I discussed with her that I am concerned if we do not treat her nausea and get her to the point where she is able to tolerate fluids by mouth that she will just go home and get dehydrated again. I discussed the option of Diclegis with her explaining the safety profile of this medication compared to the other medications that she is worried about. She is willing to try this. Labs personally reviewed demonstrate leukocytosis WBC 15.0 consistent with patient being ill but not specific otherwise. No anemia, normal platelets. CMP with trace hyponatremia patient is already receiving sodium containing fluids, no other actionable electrolyte abnormalities. Slightly elevated anion gap consistent with mild dehydration, good kidney function, normal LFTs. UA with occasional RBC, WBC but contaminated with squamous cells so there is the presence of trace bacteria and trace protein. Patient has no evidence of preeclampsia with normal blood pressure and no other associated symptoms including no findings of HELLP. I discussed these results with the patient, I recommended antibiotics for asymptomatic bacteriuria, but patient refused preferring to wait for the results of the urine culture before taking antibiotics because she is very nervous about taking any unnecessary medications. We discussed the risks of complications from asymptomatic bacteriuria or urinary tract infection that goes untreated, but she still refused preferring to wait. She has insight and capacity to make this decision. She is tolerating oral intake on reassessment and has tolerated fluids by mouth. Tachycardia has resolved heart rate in the 90s now. She feels improved. She would like to be discharged, because she is very worried about taking medications in general during this , I offered her prescription of Diclegis versus just B6, she would prefer to just take vitamin B6. This was prescribed. I gave the patient strict instructions on continued symptomatic monitoring and management, close follow-up with OB to review her visit to the ER as well as reevaluate her urine, and strict return precautions for the ER. She indicated understanding and was discharged in stable condition. Critical Care Critical Care Time Critical Care Time: No
--- NOTE | 2025-05-01 01:42 | PC.NURSE ---
Provider performed POCUS. FHR noted to be 160. PT tolerated well
[2025-05-01] MEDS: DOXYLAMINE 10MG/PYRIDOXINE 10MG TABLET 1 TAB PO (01:45)
[2025-05-01 01:46] LABS: Microscopic, Urine URINE MICROSCOPIC (MICROSCOPIC)
[2025-05-01 01:46] LABS: Hematocrit 37.8 % (37.0-47.0); Hemoglobin 12.4 g/dL (12.2-16.2); Immature Granulocytes % 0.7 %; Mean Corpuscular HGB Conc 32.8 g/dL (31.8-35.4); Mean Corpuscular Hemoglobin 29.1 pg (27.0-31.2); Mean Corpuscular Volume 88.7 fl (81-99); Nucleated Red Blood Cells % 0 %; Platelet Count 230 K/mm3 (142-424); Red Blood Count 4.26 M/mm3 (4.20-5.40); Red Cell Distribution Width-SD 41.8 fL; White Blood Count 15.0 K/mm3 (4.5-13.0)
[2025-05-01 01:47] LABS: Color,Urine YELLOW (Yellow); Glucose,Urine (UA) Negative (Negative); Ketones,Urine 1+ (Negative); Leukocyte Esterase,Urine Negative (Negative); PH,Urine 6.0 (5.0-8.5); Protein,Urine TRACE (Negative); Specific Gravity, Urine >= 1.030 (1.005-1.030); Urobilinogen,Urine 0.2 EU/dl (0.2)
[2025-05-01 01:52] LABS: Bacteria,Urine Trace /lpf; Bilirubin,Urine 1+ (Negative); Mucus,Urine 3+ /lpf; RBC,Urine Occasional #/hpf (0-3); WBC,Urine Occasional #/hpf (0-3)
[2025-05-01 01:57] LABS: Alanine Aminotransferase 24 U/L (12-78); Albumin Level 4.4 g/dl (3.5-5.0); Albumin/Globulin Ratio 1.2 (1.1-1.8); Alkaline Phosphatase 67 U/L (38-126); Anion Gap 16.4 mEq/L (5-15); Aspartate Amino Transferase 33 U/L (14-36); Bilirubin,Total 0.7 mg/dl (0.2-1.3); Blood Urea Nitrogen 11 mg/dl (7-17); Calcium 9.0 mg/dl (8.4-10.2); Carbon Dioxide 19 mmol/L (22.0-30.0); Chloride 102 mmol/L (98-107); Creatinine Clearance Estimated 296 mL/min (50-200); Creatinine,Serum 0.50 mg/dl (0.52-1.04); Estimated Glomerular Filt Rate 157 ml/min (>60); GFR (African American) 190 ML/MIN (>60); Globulin 3.8 g/dL (1.3-3.2); Glucose 116 mg/dl (74-100); Potassium 4.4 mmoL/L (3.5-5.1); Sodium 133 mmol/L (136-145); Total Protein,Serum 8.2 g/dl (6.3-8.2)
[2025-05-01 02:24] LABS: Total Cells Counted 100
[2025-05-01 02:35] VITALS: BP 132/84; PULSE 94; RESP 18; TEMP 36.7; O2SAT 100
[2025-05-01 02:38] VITALS: BP 132/84; PULSE 94; O2SAT 98
[2025-05-01 05:23] LABS: Hepatitis C Ab Qual. W/ RFX NEGATIVE (Negative)
== END 2025-05-01 02:50 | disposition home or self-care (01) ==
PROVIDERS: Emergency Provider Emergency Medicine; PCP Internal Medicine
DX: O21.8 Other vomiting complicating pregnancy (principal); O12.12 Gestational proteinuria, second trimester; R19.7 Diarrhea, unspecified; E87.1 Hypo-osmolality and hyponatremia; R00.0 Tachycardia, unspecified; Z3A.23 23 weeks gestation of pregnancy
CPT/HCPCS: 80053; 81001; 83605; 85007; 85025; 86803; 87389; 96360; 99284; 99285; J7120